=== PATIENT | male | born 1955 | race Caucasian/White ===

== ENCOUNTER 2019-04-07 10:46 | Inpatient (IN) | payer OTHER ==
[2019-04-07 13:15] LABS: BASO % 0.3 % (0-2.0); EOS % 0.4 % (0-4.5); HEMATOCRIT 54.9 % (35.4-49); HEMOGLOBIN 17.9 GM/dL (11.7-16.9); LYMPH % 10.1 % (8-40); MCH 29.3 pg (25.7-33.7); MCHC 32.5 g/dl (32.0-35.9); MEAN CELL VOLUME 90.1 fl (80-96); MEAN PLT VOLUME 7.7 fl (7.5-11.1); MONO % 8.4 % (3.8-10.2); NEUT % 80.8 % (42.8-82.8); PLATELET COUNT 258 K/MM3 (134-434); RDW 14.7 % (11.9-15.9)
[2019-04-07 13:24] LABS: INR 1.18 (0.83-1.09)
[2019-04-07 14:03] LABS: ALBUMIN 3.6 g/dl (3.4-5.0); ALK PHOS 74 U/L (45-117); ANION GAP 6 MMOL/L (8-16); BILIRUBIN,TOTAL 0.6 mg/dL (0.2-1); BLOOD UREA NITROGEN 23.6 mg/dL (7-18); CALCIUM 9.2 mg/dL (8.5-10.1); CHLORIDE 96 mmol/L (98-107); CO2 33 mmol/L (21-32); CREATININE 1.2 mg/dL (0.55-1.3); GLUCOSE,RANDOM 75 mg/dL (74-106); LIPASE 101 U/L (73-393); POTASSIUM 4.7 mmol/L (3.5-5.1); SGOT/AST 27 U/L (15-37); SGPT/ALT 38 U/L (13-61); SODIUM 136 mmol/L (136-145); TOT PROT 6.8 g/dl (6.4-8.2)
--- NOTE | 2019-04-07 15:13 | PDOC ---
Documentation entered by Imelda Posey SCRIBE, acting as scribe for Cornelio Tubbs MD. Cornelio Tubbs MD: This documentation has been prepared by the Taty peterson Adrianna, SCRIBE, under my direction and personally reviewed by me in its entirety. I confirm that the documentation accurately reflects all work, treatment, procedures, and medical decision making performed by me. History of Present Illness - General Chief Complaint: Pain Stated Complaint: ABD PAIN Time Seen by Provider: 04/07/19 11:43 - History of Present Illness Initial Comments: The patient is a 63 year old male, with a significant PMH of Afib (on Xarelto), COPD, polycythemia vera (last phlebotomy was 2 years ago), restless leg syndrome , and anxiety, who presents to the ED for evaluation of abdominal pain for 2 weeks. Patient complains of diffuse upper abdominal pain, which has been chronic over the past two years but has become progressively worse over the past two weeks. He notes the pain is onset typically ~20-30 minutes after eating , and lasts for ~2 hours. His pain is exacerbated with eating solid foods, specifically meats. Patient notes he has been unable to sleep secondary to the pain. He additionally states that his food goes down slower than normal, and his bowel movements are smaller than typical. He denies any current abdominal pain while in the ED, but notes he was experiencing it a few hours ago after he ate breakfast. Off note, patient additionally complains of bilateral LE edema for the past 2 days. Denies diarrhea, blood in stool, melena. Allergies: Surgical History: Social History: Current everyday smoker (quit for a few years, and returned to smoking 1ppd 6 months ago). PCP: Dr. Ball Cards: Dr. Burden GI: Dr. Henry Pulm: NOS ([place]ales) Heme: NOS (Morales) Past History - Psycho Social/Smoking Cessation Hx Smoking History: Current every day smoker Have you smoked in the past 12 months: Yes Number of Cigarettes Smoked Daily: 20 Information on smoking cessation initiated: Yes Hx Alcohol Use: No Drug/Substance Use Hx: No Review of Systems - Review of Systems Comments:: CONSTITUTIONAL: No fever, no chills, no fatigue EYES: No visual changes ENT: No ear pain, no sore throat CARDIOVASCULAR: No chest pain, no palpitations RESPIRATORY: No cough, no SOB GI: +Diffuse upper abdominal pain. +Food goes down slower. +Smaller stool production than normal. No nausea, no vomiting, no constipation, no diarrhea GENITOURINARY: No dysuria, no frequency, no hematuria MUSKULOSKELETAL: +Bilateral LE edema. No back pain, no joint pain, no myalgias SKIN: No rash NEURO: No headache *Physical Exam - Vital Signs Last Vital Signs Temp Pulse Resp BP Pulse Ox 98.2 F 100 H 18 118/81 90 L 04/07/19 11:09 04/07/19 11:09 04/07/19 11:09 04/07/19 11:09 04/07/19 11:09 - Physical Exam 04/07/19 15:08 EXAMINATION CONSTITUTIONAL: awake; tachypneic, dyspneic; well-nourished; in no apparent distress HEAD: Normocephalic; atraumatic EYES: PERRL; EOM intact ENMT: External appears normal; normal oropharynx NECK: Supple; non-tender; no cervical lymphadenopathy CARD: Normal S1, S2; no murmurs, rubs, or gallops RESP: + diffuse exp wheezing b/l with intermitent ronchi ABD: Soft, non-distended; + mild ruq tender; + ventral hernia; no palpable organomegaly, EXT: Normal ROM in all four extremities; non-tender to palpation; + 3 piting edema b/l; distal pulses intact SKIN: Warm, dry, no rash NEURO: No focal neurological deficiencies. Heart Score/ECG Review - ECG Impressions Comment:: ECG performed on 07 Apr 2019 at 12:05 demonstrates rate of 98 bpm, sinus rhythm with occasional premature ventricular complexes, possible left atrial enlargement, right superior axis deviation, pulmonary disease pattern, septal infarct (age undetermined). ED Treatment Course - LABORATORY CBC & Chemistry Diagram: 04/07/19 12:20 04/07/19 12:20 - ADDITIONAL ORDERS Additional order review: Laboratory Results 04/07/19 04/07/19 12:20 12:20 PT with INR 14.00 H INR 1.18 H Sodium 136 Potassium 4.7 Chloride 96 L Carbon Dioxide 33 H Anion Gap 6 L BUN 23.6 H Creatinine 1.2 Est GFR (CKD-EPI)AfAm 74.66 Est GFR (CKD-EPI)NonAf 64.42 Random Glucose 75 Calcium 9.2 Total Bilirubin 0.6 AST 27 ALT 38 Alkaline Phosphatase 74 Total Protein 6.8 Albumin 3.6 Lipase 101 04/07/19 12:20 RBC 6.10 H MCV 90.1 MCHC 32.5 RDW 14.7 MPV 7.7 Neutrophils % 80.8 Lymphocytes % 10.1 Monocytes % 8.4 Eosinophils % 0.4 Basophils % 0.3 - RADIOLOGY Radiology Studies Ordered: Category Date Time Status ABDOMEN US -LIMITED [US] Stat Ultrasound 04/07/19 12:21 Completed Radiograph Interpretation: EXAM#: TYPE/EXAM: RESULT: [id number] US/ABDOMEN US -LIMITED Limited abdominal ultrasound. IMPRESSION: Fatty infiltration of the liver. 1.3 cm right hepatic lobe cyst. Pancreatic duct in the head region measures about 2 mm which is within upper normal limits. Follow- up with ultrasound in 1-2 months is suggested. Alternatively follow-up with MRI with MRCP may be obtained. Reported By: Sy Villalobos MD 04/07/19 14:06 Medical Decision Making - Medical Decision Making 04/07/19 15:12 Patient is 63-year-old male with multiple comorbidities, severe COPD who presents with symptoms of postprandial abdominal pain that started approximately 20 to 30 minutes after a meal and are noted to be worse after consumption of solids. Patient symptoms of persisted for an extended period of time but have increased in severity over the past 2 weeks. In the ER, patient is awake and alert, nontoxic-appearing, hypoxemic on room air with oxygen saturation ranging between 87 to 90% (patient's baseline); diffuse expiratory wheezing is noted on lung evaluation. A ventral hernia is noted on the abdominal exam without evidence of incarceration. There is no organomegaly and there is no focal abdominal tenderness with the exception of minimal right upper quadrant tenderness to deep palpation only. CBC/CMP within normal limit. Right upper quadrant ultrasound reveals no evidence of cholelithiasis or gallbladder disease. Will discuss with GI. Will reassess. Discharge - Discharge Information Problems reviewed: Yes Clinical Impression/Diagnosis: Hypoxia, Polycythemia rubra vera Abdominal pain Qualifiers: Abdominal location: upper abdomen, unspecified Qualified Code(s): R10.10 - Upper abdominal pain, unspecified COPD (chronic obstructive pulmonary disease) Qualifiers: COPD type: unspecified COPD Qualified Code(s): J44.9 - Chronic obstructive pulmonary disease, unspecified Condition: Fair - Admission Yes - Follow up/Referral Referrals: Dennis Ball MD [Primary Care Provider] - - Patient Discharge Instructions - Post Discharge Activity
[2019-04-07] MEDS ORDERED: ALBUTEROL SO4 2.5/IPRATROPIUM 0.5 INH SOL 3 ML VIAL.NEB. NEB ONE ×2 (15:41→23:49)
[2019-04-07] MEDS ORDERED: ALBUTEROL SO4 2.5/IPRATROPIUM 0.5 INH SOL 3 ML VIAL.NEB. NEB SCH (17:45)
--- NOTE | 2019-04-07 17:45 | CON.GI ---
Consult Consult Specialty:: Gastroenterology Referred by:: Dr. Tubbs Reason for Consultation:: Abdominal pain - History of Present Illness Chief Complaint: Abdominal pain History of Present Illness: 63yo male h/o COPD, RAINER on CPAP, polycythemia vera s/p phlebotomy, A fib on xarelto presents for evaluation of intermittent abdominal pain x 2-3 weeks. Pt known to Dr. Henry, reporting intermittent upper abdominal pain over the past 2-3 weeks. Pt describes dull achy sensation occurring usually within 20-30 minutes after eating, resolves within 30 minutes, also with sensation of fullness and early satiety. Has taken advil at times to alleviate the pain. Denies dysphagia, nausea or vomiting. Reports hard pebble like stools daily, denies melena or hematochezia. PO intake has been limited due to symptoms, reports approximately 10-20lbs weight loss over the past 1-2 months. Had pain after breakfast this am, however denies pain currently. No prior EGD. Had colonoscopy by Dr. Henry in 2015, states was due in 2020 ( report not available). Last dose of xarelto was yesterday (04/06). - History Source History Provided By: Patient - Alcohol/Substance Use Hx Alcohol Use: No - Smoking History Smoking history: Current every day smoker Have you smoked in the past 12 months: Yes Aproximately how many cigarettes per day: 20 Home Medications - Home Medications Home Medications: Ambulatory Orders Albuterol 2.5/Ipratropium 0.5 [Duoneb -] 1 neb NEB Q4H 04/07/19 Albuterol Sulfate [Proair Hfa] 8.5 gm IH DAILY 04/07/19 Diltiazem HCl [Diltiazem 24Hr Cd] 180 mg PO DAILY 04/07/19 Gabapentin 600 mg PO BID 04/07/19 Rivaroxaban [Xarelto -] 20 mg PO DAILY 04/07/19 Tiotropium Br/Olodaterol HCl [Stiolto Respimat Inhal [place]] 2.5 mcg IH DAILY Review of Systems - Review of Systems Constitutional: reports: Loss of Appetite, Unintentional Wgt. Loss Cardiovascular: reports: No Symptoms Respiratory: reports: No Symptoms Gastrointestinal: reports: Abdominal Pain Musculoskeletal: reports: No Symptoms Physical Exam-GI Vital Signs: Vital Signs Temperature 98.2 F 04/07/19 11:09 Pulse Rate 100 H 04/07/19 11:09 Respiratory Rate 18 04/07/19 11:09 Blood Pressure 118/81 04/07/19 11:09 O2 Sat by Pulse Oximetry (%) 90 L 04/07/19 16:41 Constitutional: Yes: Well Nourished, No Distress, Calm Cardiovascular: Yes: WNL, Regular Rate and Rhythm Respiratory: Yes: WNL, Regular, CTA Bilaterally ...Palpate: Yes: Other (Abd soft, nontender, nondistended, +ventral hernia, reducible) Labs: CBC, BMP 04/07/19 12:20 04/07/19 12:20 INR, PTT INR 1.18 (0.83-1.09) H 04/07/19 12:20 Imaging - Results Ultrasound: Report Reviewed Assessment/Plan 63yo male h/o COPD, RAINER on CPAP, polycythemia vera, A fib on xarelto presents for evaluation of intermittent abdominal pain x 4-6 weeks, mostly postprandial with some associated early satiety and weight loss. No prior EGD. No gallbladder pathology on US. Possible etiologies including gastritis, PUD however need to exclude mesenteric ischemia. -Recommend CTA to further evaluate -Check lactate -PPI daily -Cardiology and pulmonary consultations -Surgery consult -Hold xarelto if no contraindication (last dose on 04/06), if a/c deemed indicated recommend heparin gtt that can be held 4-6 hours prior to procedure -Plan for EGD pending above and once optimized from a cardiorespiratory standpoint, possibly Friday pending course Discussed with medicine team
--- NOTE | 2019-04-07 17:45 | HP ---
CHIEF COMPLAINT: Abdominal Pain x 2 weeks PCP: Dr. Ball HISTORY OF PRESENT ILLNESS: Pt. is a 63 y.o. F w/ PMHx. of Afib (on Xarelto), COPD (not on home O2), Polycythemia(Ddx. 3 years ago, last phlebotomy 2 years ago), RLS, Anxiety and Arthritis presents for abdominal pain that has been worsening over the last 2 weeks. Pt. states the pain started 2 years ago but has been getting worse recently. Pt. states the pain happens around 20-30 min after eating and has been so severe that he cannot sleep at night as well as causing him to decrease his PO intake. Pt.s last meal was breakfast. Pt. endorses about 20 lbs of weight loss over the last month. Pt. states he has been having low-grade fever, hot an cold spells but denies over chills/rigors. Pt. is also complaining of b/l lower extremity swelling, constipation, weight loss, lightheadedness and generalized weakness. Pt. states he last saw Dr. Ball 2 weeks ago for shortness of breath and wheezing. CXR was negative but was given an 8 day course of Prednisone, no antibiotics. Pt. denies any sick contacts or recent travel. Pt. 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 States he has a 6 month supply in his fridge and that his last dose was yesterday. Pt. sees Dr. Ligth @ [facility] for Polycythemia. Pt. last visited in February. Pt. 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 Pt. last had a stress test 1 year ago. 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 Pt. sees Dr. Gregorio? @ [place] as his Pulmonologists ER course was notable for: (1) CBAC, CMP, Abd US (2) (3) Recent Travel: No PAST MEDICAL HISTORY: As above PAST SURGICAL HISTORY: Varicose vein removal, Lipoma removal from head Social History: SmokinPPD x 30 years, recently restarted ~6months ago Alcohol: Occasional Beer Drugs: Rec. marijuana use, CBD Oil, Hemp Family Hx.: Mom of Lung CA @ 71, Dad of CHF @ 80, Maternal Uncle: Stroke/ID at 56, Maternal Uncle: of Leg cancer HOME MEDICATIONS: Home Medications Medication Instructions Recorded Albuterol 2.5/Ipratropium 0.5 1 neb NEB Q4H 04/07/19 [Duoneb -] Albuterol Sulfate [Proair Hfa] 8.5 gm IH DAILY 04/07/19 Diltiazem HCl [Diltiazem 24Hr Cd] 180 mg PO DAILY 04/07/19 Gabapentin 600 mg PO BID 04/07/19 Rivaroxaban [Xarelto -] 20 mg PO DAILY 04/07/19 Tiotropium Br/Olodaterol HCl 2.5 mcg IH DAILY 04/07/19 [Stiolto Respimat Inhal [place]] REVIEW OF SYSTEMS As above PHYSICAL EXAMINATION Vital Signs - 24 hr 04/07/19 04/07/19 11:09 16:41 Temperature 98.2 F Pulse Rate 100 H Respiratory 18 Rate Blood Pressure 118/81 O2 Sat by Pulse 90 L 90 L Oximetry (%) GENERAL: Awake, alert, and fully oriented, in mild respiratory distress, conversational dyspnea HEAD: Normal with no signs of trauma. EYES: Sclera anicteric, conjunctiva clear. EARS, NOSE, THROAT: Ears normal, nares patent. Dry mucous membranes. NECK: Normal range of motion, supple without JVD LUNGS: Decreased BS, diffuse wheezing, poor air flow, no accessory muscle use HEART: Irregular rate and rhythm, normal S1 and S2 without murmur ABDOMEN: Soft, epigastric discomfort, not distended, hernia, normoactive bowel sounds, no guarding, no rebound, no masses. No external hemorrhoids, good sphincter tone, no internal hemorrhoids, stool in the rectal vault, no damaris blood on glove MUSCULOSKELETAL: No CVA tenderness. UPPER EXTREMITIES: 2+ radial pulses, warm, well-perfused. No cyanosis. Clubbing. No peripheral edema. LOWER EXTREMITIES: 2+ dorsal pedal pulses, warm, well-perfused. No calf tenderness. No peripheral edema. NEUROLOGICAL: Normal speech. Normal gait. PSYCHIATRIC: Cooperative. Good eye contact. Anxious SKIN: Warm, dry, normal turgor, normal capillary refill. Laboratory Results - last 24 hr 01/29/20 01/29/20 01/29/20 12:20 12:20 12:20 WBC 11.0 H RBC 6.10 H Hgb 17.9 H Hct 54.9 H MCV 90.1 MCH 29.3 MCHC 32.5 RDW 14.7 Plt Count 258 MPV 7.7 Absolute Neuts (auto) 8.9 H Neutrophils % 80.8 Lymphocytes % 10.1 Monocytes % 8.4 Eosinophils % 0.4 Basophils % 0.3 Nucleated RBC % 0 PT with INR 14.00 H INR 1.18 H Sodium 136 Potassium 4.7 Chloride 96 L Carbon Dioxide 33 H Anion Gap 6 L BUN 23.6 H Creatinine 1.2 Est GFR (CKD-EPI)AfAm 74.66 Est GFR (CKD-EPI)NonAf 64.42 Random Glucose 75 Calcium 9.2 Total Bilirubin 0.6 AST 27 ALT 38 Alkaline Phosphatase 74 Total Protein 6.8 Albumin 3.6 Lipase 101 ASSESSMENT/PLAN: Pt. is a 63 y.o. F w/ PMHx. of Afib (on Xarelto), COPD (not on home O2), Polycythemia (Ddx. 3 years ago, last phlebotomy 2 years ago), RLS, Anxiety and Arthritis presents for abdominal pain that has been worsening over the last 2 weeks. #Abdominal Pain likely secondary to Polycythemia and is ischemic in nature (Given hx. Polycythemia and smoking), will f/u AM lipid panel f/u CTA to evaluate for ischemia in the celiac trunk and distally as Pt. complains of pain 20-30 min after meal, with epigastric tenderness. NPO Abd. US negative for gall stones, shows fatty liver, 1.3 cm R. hepatic cyst, pancreatic duct 2mm. f/u Heme/on Consult for initiating hydroxy urea as Pt. is not currently taking. 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 is on ASA, called Pharmacy no documentation, may be taking OTC. GI Consult appreciated for EGD, Pt. has never had EGD but has had colonoscopy in past with Dr. Henry. Protonix 40mg BID f/u FOBT #COPD c/w Duonebs and PRN Albuterol (Pt. states he last took Stiolto 2 weeks ago) Solumedrol 40mg Q8H Pulomonology consult appreciated for clearance for EGD. Will likely need Anesthesiology clearance as well. Pt. will liekly need to be screened for RAINER as outpatient. Pt. does not have home O2 but was hypoxic to 86% after conversation. Will need Pre and Post for home O2. F/u Physical Therapy. Nicotine cessation discussed. Pt. states he quit in the past but has relapsed recently. Pt. denies smoking over the last 3 days. Can give Nicotine Patch if Pt. is becoming increasingly agitated/anxious c/w Telemetry monitoring for pulse oximetry supplemental O2 as needed for SpO2 above 90% #Afib EKG: shows p waves w/ PVCs?, Sinus rhythm, QTc: 45, normal intervals Cardiology consulted appreciated for clearance for EGD c/w Diltiazem 180mg Hold Xarelto, c/w Heparin gtt #FEN D5-1/2 NS @ 100 monitor electrolytes and replete as needed NPO #DVT Ppx. Heparin Gtt Visit type - Emergency Visit Emergency Visit: Yes ED Registration Date: 04/07/19 Care time: The patient presented to the Emergency Department on the above date and was hospitalized for further evaluation of their emergent condition. - New Patient This patient is new to me today: Yes Date on this admission: 04/07/19 - Critical Care Critical Care patient: No ATTENDING PHYSICIAN STATEMENT I saw and evaluated the patient. I reviewed the resident's note and discussed the case with the resident. I agree with the resident's findings and plan as documented. SUBJECTIVE: OBJECTIVE: ASSESSMENT AND PLAN:
--- NOTE | 2019-04-07 17:48 | PN ---
Teaching Attending Note Name of Resident: Yaniv Zee ATTENDING PHYSICIAN STATEMENT I saw and evaluated the patient. I reviewed the resident's note and discussed the case with the resident. I agree with the resident's findings and plan as documented. SUBJECTIVE: HISTORY OF PRESENT ILLNESS: Pt. is a 63 y.o. F w/ PMHx. of Afib (on Xarelto), COPD (not on home O2), Polycythemia(Ddx. 3 years ago, last phlebotomy 2 years ago), RLS, Anxiety and Arthritis presents for abdominal pain that has been worsening over the last 2 weeks. Pt. states the pain started 2 years ago but has been getting worse recently over the past 2 weeks,. Pt. states the pain happens around 20-30 min after eating and has been so severe that he cannot sleep at night as well as causing him to decrease his PO intake. no wt loss, Pt. states he has been having low-grade fever, hot an cold spells but denies over chills/rigors. Pt. is also complaining of b/l lower extremity swelling, constipation, weight loss, lightheadedness and generalized weakness. no blood in stools, Pt. states he last saw Dr. Ball 2 weeks ago for shortness of breath and wheezing. CXR was negative but was given and was started on po prednisone, OBJECTIVE: appears comfortable, nad alert awake and oriented i time place and person, vss neck supple, no jvd cvs s1.s2.0 chest ctab abd benign soft nt no bs+ ext no c/c/1+edema neuro non focal assessment and plan, Pt. is a 63 y.o. F w/ PMHx. of Afib (on Xarelto), COPD (not on home O2), Polycythemia (Ddx. 3 years ago, last phlebotomy 2 years ago), RLS, Anxiety and Arthritis presents for abdominal pain that has been worsening over the last 2 weeks. #Abdominal Pain likely secondary to Polycythemia and is ischemic in nature (Given hx. Polycythemia and smoking), will f/u AM lipid panel f/u CTA NPO Abd. US negative for gall stones, shows fatty liver, 1.3 cm R. hepatic cyst, pancreatic duct 2mm. f/u Heme/on Consult for polycythemia, as per pt he is on asa but not as per pharmacy record, GI Consult appreciated for EGD, Pt. has never had EGD but has had colonoscopy in past with Dr. Henry. Protonix 40mg BID #COPD continue nebulizers, and steroids, pulmonology consult, for the gael for the procedure, and will continue oxygen for the hypoxemia, #Afib Cardiology consulted, c/w Diltiazem 180mg Hold Xarelto, c/w Heparin gtt
[2019-04-07] MEDS: DEXTROSE 5%-0.45% SALINE 1,000 ML IV SCH (18:13)
[2019-04-07] MEDS ORDERED: HEPARIN NA (PORCINE) 5,000 UNITS/ML 1ML VIAL IVPUSH PRN ×2 (18:17)
[2019-04-07] MEDS ORDERED: HEPARIN INFUSION - 25,000 UNITS/500 ML INFUS.BAG IVPB ONE (20:46)
[2019-04-07] MEDS ORDERED: GABAPENTIN 100 MG CAPSULE ONE (21:47)
[2019-04-07] MEDS ORDERED: methylPREDNISolone NA SUCC 40 MG/1 ML VIAL ONE (21:48)
[2019-04-07] MEDS ORDERED: PANTOPRAZOLE SODIUM 40 MG VIAL ONE (21:48)
[2019-04-07] MEDS: HEPARIN INFUSION - 25,000 UNITS/500 ML INFUS.BAG IVPB SCH (22:10)
[2019-04-07] MEDS: PANTOPRAZOLE SODIUM 40 MG VIAL IVPUSH SCH (22:13)
[2019-04-07] MEDS: methylPREDNISolone NA SUCC 40 MG/1 ML VIAL IVPUSH SCH (22:13)
[2019-04-07] MEDS: GABAPENTIN 300 MG CAPSULE PO SCH (22:13)
[2019-04-07] MEDS ORDERED: ALBUTEROL SO4 0.083% IH SOL 2.5 MG/3 ML VIAL.NEB. NEB PRN (22:16)
[2019-04-08] MEDS: ALBUTEROL SO4 2.5/IPRATROPIUM 0.5 INH SOL 3 ML VIAL.NEB. NEB SCH ×6 (00:08→20:30)
[2019-04-08] MEDS ORDERED: MELATONIN 5 MG TABLETS PO ONE ×2 (01:42→23:20)
[2019-04-08] MEDS ORDERED: methylPREDNISolone NA SUCC 40 MG/1 ML VIAL ONE (03:26)
[2019-04-08] MEDS ORDERED: ALBUTEROL SO4 2.5/IPRATROPIUM 0.5 INH SOL 3 ML VIAL.NEB. NEB ONE (03:26)
[2019-04-08] MEDS: methylPREDNISolone NA SUCC 40 MG/1 ML VIAL IVPUSH SCH ×3 (03:36→18:30)
[2019-04-08] MEDS ORDERED: dilTIAZem HCL 60 MG TABLET (FP) ONE (04:24)
[2019-04-08] MEDS ORDERED: ALBUTEROL SO4 0.083% IH SOL 2.5 MG/3 ML VIAL.NEB. NEB PRN (04:32)
[2019-04-08] MEDS ORDERED: METOPROLOL TARTRATE 5 MG/5 ML VIAL IVPUSH ONE (04:57)
[2019-04-08] MEDS ORDERED: METOPROLOL TARTRATE 5 MG/5 ML VIAL ONE (04:58)
--- NOTE | 2019-04-08 05:32 | PN ---
Progress Note (short form) - Note Progress Note: Nursing paged resident to evaluate patient as patient's heart rate was noted to be in 130s-150s. Resident to the bedside after review of day's notes. Patient stated that he felt like his heart was racing and this has happened in the past when he did not receive his nighttime medications. Noted that patient had not received his night time Cardizem which he take total 300mg. Denied cp, sob, diaphoresis, back pain, dizziness, lightheadedness. Was given Cardizem 120mg. EKG taken and showed afib with RVR at rate 146, right axis deviation, no ST segment changes or T wave inversions, QTc 461. PE: General: alert and oriented, no acute distress, upset about not getting nighttimes medications Cardiac: Tachycardic and irregular rhythm, no murmurs auscultated Resp: expiratory wheezes. Vitals: Rate 140 BP: 126/66 Sat 88% on 2L Lopressor 5mg ordered and patient refused. Asked why refusing, stating that he had a bad reaction to the medication in the past and does not want to take it now. Explained to the patient that having elevated heart rate with afib in RVR is dangerous and needs to be slowed down as it can cause including but not limited to further cardiac complications, ACS, coma, . Patient acknowledged this and continued to refuse stating that he wanted his full nighttime dose of cardizem. Cardizem 180mg ordered for total dose of 300mg and morning cardizem was held. Patient remained asymptomatic and will continue to observe. Nurse called and notified that patient at rate 105 and in sinus tachycardia. Will sign out to day team.
[2019-04-08 08:04] LABS: INR 0.99 (0.83-1.09); PROTHROMBIN TIME (PATIENT) 11.7 SEC (9.7-13.0)
[2019-04-08 08:14] LABS: BASO % 0.1 % (0-2.0); EOS % 0.1 % (0-4.5); HEMATOCRIT 55.6 % (35.4-49); HEMOGLOBIN 18.3 GM/dL (11.7-16.9); LYMPH % 4.8 % (8-40); MCH 29.5 pg (25.7-33.7); MEAN CELL VOLUME 89.6 fl (80-96); MEAN PLT VOLUME 7.8 fl (7.5-11.1); MONO % 0.9 % (3.8-10.2); NEUT % 94.1 % (42.8-82.8); PLATELET COUNT 223 K/MM3 (134-434); RDW 14.9 % (11.9-15.9); WHITE BLOOD COUNT 6.9 K/mm3 (4.0-10.0)
[2019-04-08 08:29] LABS: ALBUMIN 3.5 g/dl (3.4-5.0); ALK PHOS 73 U/L (45-117); ANION GAP 7 MMOL/L (8-16); BILIRUBIN,TOTAL 0.7 mg/dL (0.2-1); BLOOD UREA NITROGEN 22.9 mg/dL (7-18); CALCIUM 9.4 mg/dL (8.5-10.1); CHLORIDE 97 mmol/L (98-107); CO2 35 mmol/L (21-32); CREATININE 1.3 mg/dL (0.55-1.3); GLUCOSE,RANDOM 167 mg/dL (74-106); PHOSPHOROUS 4.5 mg/dL (2.5-4.9); POTASSIUM 4.8 mmol/L (3.5-5.1); SGOT/AST 19 U/L (15-37); SGPT/ALT 35 U/L (13-61); SODIUM 138 mmol/L (136-145); TOT PROT 6.6 g/dl (6.4-8.2)
[2019-04-08 08:34] LABS: CHOLESTEROL 196 mg/dL (50-200); HDL CHOLESTEROL 76 mg/dL (40-60); LDL CHOLESTEROL (ONLY SJRH) 97 mg/dL (5-100); TRIGLYCERIDES 56 mg/dL (0-150)
[2019-04-08] MEDS ORDERED: TIOTROPIUM/OLODATEROL HCL (STIOLTO) 4 GM INHALER IH SCH (10:00)
[2019-04-08] MEDS ORDERED: ASPIRIN 81 MG CHEWABLE TABLETS PO SCH (10:00)
[2019-04-08] MEDS ORDERED: ALBUTEROL SO4 8 GM HFA INHALER IH SCH (10:00)
[2019-04-08] MEDS: GABAPENTIN 300 MG CAPSULE PO SCH ×3 (10:21→21:18)
[2019-04-08] MEDS: PANTOPRAZOLE SODIUM 40 MG VIAL IVPUSH SCH ×2 (10:21→21:17)
[2019-04-08] MEDS ORDERED: SODIUM CHLORIDE NASAL SPRAY 44 ML BOTTLE NS PRN (11:11)
[2019-04-08 12:38] LABS: ANISOCYTOSIS 1+; MACROCYTOSIS 0; PLATELET ESTIMATE NORMAL; TEAR DROP CELLS 2+; TOXIC GRANULATION 2+
--- NOTE | 2019-04-08 12:40 | EKG ---
Test Reason : Blood Pressure : / mmHG Vent. Rate : 146 BPM Atrial Rate : 147 BPM P-R Int : 000 ms QRS Dur : 096 ms QT Int : 296 ms P-R-T Axes : 000 150 042 degrees QTc Int : 461 ms ATRIAL FIBRILLATION WITH RAPID VENTRICULAR RESPONSE WITH PREMATURE VENTRICULAR OR ABERRANTLY CONDUCTED COMPLEXES RIGHT AXIS DEVIATION ABNORMAL ECG WHEN COMPARED WITH ECG OF 07-APR-2019 17:44, QUESTIONABLE CHANGE IN QRS AXIS CRITERIA FOR SEPTAL INFARCT ARE NO LONGER PRESENT Confirmed by XAVI PAULA MD ([id number]) on 04/08/2019 12:40:35 PM Referred By: Confirmed By:XAVI PAULA MD
--- NOTE | 2019-04-08 12:40 | EKG ---
Test Reason : Blood Pressure : / mmHG Vent. Rate : 117 BPM Atrial Rate : 113 BPM P-R Int : 000 ms QRS Dur : 080 ms QT Int : 306 ms P-R-T Axes : 000 211 042 degrees QTc Int : 426 ms POOR DATA QUALITY, INTERPRETATION MAY BE ADVERSELY AFFECTED ATRIAL FIBRILLATION WITH RAPID VENTRICULAR RESPONSE WITH PREMATURE VENTRICULAR OR ABERRANTLY CONDUCTED COMPLEXES RIGHT SUPERIOR AXIS DEVIATION RIGHT VENTRICULAR HYPERTROPHY SEPTAL INFARCT (CITED ON OR BEFORE 07-APR-2019) ABNORMAL ECG WHEN COMPARED WITH ECG OF 07-APR-2019 12:05, ATRIAL FIBRILLATION HAS REPLACED SINUS RHYTHM QUESTIONABLE CHANGE IN INITIAL FORCES OF SEPTAL LEADS Confirmed by XAVI PAULA MD ([id number]) on 04/08/2019 12:40:28 PM Referred By: Confirmed By:XAVI PAULA MD
--- NOTE | 2019-04-08 13:28 | CON.CARD ---
Consult Consult Specialty:: cardiology Reason for Consultation:: SOB; multiple CAD risks - History of Present Illness History of Present Illness: The patient is a 63 year old white man, with a significant PMH of Afib (on diltiazem and Xarelto), COPD (denies asthma; tolerated beta blockers for AF in the past; per , pt refuses to use prescribed home O2),, polycythemia vera ( last phlebotomy was 2 years ago), RAINER/RLS (on CPAP), and anxiety/depression/ panic, who presents to the ED for evaluation of abdominal pain for 2 weeks. Patient complains of diffuse upper abdominal pain, which has been chronic over the past two years but has become progressively worse over the past two weeks. He notes the pain is onset typically ~20-30 minutes after eating, and lasts for ~2 hours. His pain is exacerbated with eating solid foods, specifically meats. Patient notes he has been unable to sleep secondary to the pain. He additionally states that his food goes down slower than normal, and his bowel movements are smaller than typical. He denies any current abdominal pain while in the ED, but notes he was experiencing it a few hours ago after he ate breakfast. Planned now for EGD. Pt does report chronic shortness of breath, chest tightness and wheezing. Reports an unintentional weight loss of 20lbs over the past month. He uses Stiolto and albuterol at home. He started smoking at age 17, smoked as much as 2 PPD and still currently smokes. He was placed on prednisone about 2 weeks ago with improvement in dyspnea. Never been on steroids prior to that. Denies hx seizures. patient additionally complains of bilateral LE edema for the past 2 days. Pt says he had a coronary angiogram about 7 yrs ago at [facility]: nonobstructive disease, but "something in the lower part was not right". He has had severeal stress tests since, the latest about a year ago. Attends pumonary clinic at [place]. On rivaroxaban 20 mg daily; had an episode of bleeding years ago, but not since. PMD: Dr. Ball Cardio: Dr. Cast ([place]) Pulm: - History Source History Provided By: Patient, Family Member (), Medical Record Limitations to Obtaining History: Other (pt is angry, upset; gives information reluctantly) - Alcohol/Substance Use Hx Alcohol Use: No - Smoking History Smoking history: Current every day smoker Have you smoked in the past 12 months: Yes Aproximately how many cigarettes per day: 20 Home Medications - Allergies Allergies/Adverse Reactions: Allergies Allergy/AdvReac Type Severity Reaction Status Date / Time No Known Allergies Allergy Verified 04/07/19 18:55 - Home Medications Home Medications: Ambulatory Orders Albuterol 2.5/Ipratropium 0.5 [Duoneb -] 1 neb NEB Q4H 04/07/19 Albuterol Sulfate [Proair Hfa] 8.5 gm IH DAILY 04/07/19 Diltiazem HCl [Diltiazem 24Hr Cd] 180 mg PO HS 04/07/19 Gabapentin 600 mg PO BID 04/07/19 Rivaroxaban [Xarelto -] 20 mg PO DAILY 04/07/19 Tiotropium Br/Olodaterol HCl [Stiolto Respimat Inhal [place]] 2.5 mcg IH DAILY Diltiazem HCl [Diltiazem ER] 120 mg PO HS 04/08/19 Family Medical History Family Hx Cancer: Father ([place]) Review of Systems - Review of Systems Constitutional: reports: Unintentional Wgt. Loss Eyes: reports: No Symptoms HENT: reports: No Symptoms Neck: reports: No Symptoms Cardiovascular: reports: Chest Pain, Shortness of Breath Respiratory: reports: Exercise Intolerance, SOB, Wheezing. denies: Hemoptysis Gastrointestinal: reports: Abdominal Pain, Dysphagia, Nausea Genitourinary: reports: No Symptoms Breasts: reports: No Symptoms Reported Musculoskeletal: reports: Muscle Weakness Integumentary: reports: No Symptoms Neurological: reports: Weakness Endocrine: reports: No Symptoms Hematology/Lymphatic: denies: Excessive Bleeding Psychiatric: reports: Altered Sleep Pattern, Anxiety, Depression, Panic - Risk Factors Known Risk Factors: Yes: Age, Family History, Gender, Hypercholesterolemia, Hypertension, Physical Inactivity, Smoking, Other (COPD; CHF) Vital Signs: Vital Signs Temperature 98.5 F 04/08/19 09:00 Pulse Rate 100 H 04/08/19 09:00 Respiratory Rate 20 04/08/19 09:00 Blood Pressure 124/60 04/08/19 09:00 O2 Sat by Pulse Oximetry (%) 89 L 04/08/19 07:22 Constitutional: Yes: Anxious, Moderate Distress Eyes: Yes: WNL HENT: Yes: WNL Neck: Yes: WNL Respiratory: Yes: Diminished, On Nasal O2, SOB, Tachypnea, Wheezes (diffuse) Gastrointestinal: Yes: Soft, Tenderness (mild) Renal/: No: Anuria Cardiovascular: Yes: Tachycardia, Pulse Irregular JVD: Yes Carotid Bruit: No PMI: Non-Displaced Heart Sounds: Yes: S1 (varies in intensity), S2. No: S4 Murmur: Yes: Systolic Murmur, Grade 1 Musculoskeletal: Yes: Muscle Weakness Extremities: Yes: Cool Edema: No Peripheral Pulses WNL: Yes Integumentary: Yes: WNL Neurological: Yes: Alert, Oriented, Weakness Psychiatric: Yes: Alert, Oriented, Agitated, Other (anxsious/angry) - Other Data Labs, Other Data: CBC, BMP 04/08/19 06:28 04/08/19 06:28 INR, PTT INR 0.99 (0.83-1.09) 04/08/19 06:28 Troponin, BNP 04/07/19 12:20 Troponin I < 0.02 Troponin, BNP 04/07/19 12:20 Troponin I < 0.02 Abnormal Lab Results 04/08/19 04/08/19 04/08/19 06:28 06:28 06:28 RBC 6.20 H Hgb 18.3 H Hct 55.6 H Neutrophils % 94.1 H Neutrophils % (Manual) 92.0 H Lymphocytes % 4.8 L D Lymphocytes % (Manual) 2.0 L Monocytes % 0.9 L D Monocytes % (Manual) 0 L PTT (Actin FS) Chloride 97 L Carbon Dioxide 35 H Anion Gap 7 L BUN 22.9 H Random Glucose 167 H HDL Cholesterol 76 H 04/08/19 06:28 RBC Hgb Hct Neutrophils % Neutrophils % (Manual) Lymphocytes % Lymphocytes % (Manual) Monocytes % Monocytes % (Manual) PTT (Actin FS) 70.4 H Chloride Carbon Dioxide Anion Gap BUN Random Glucose HDL Cholesterol Imaging - Results Chest X-ray: Image Reviewed EKG: Image Reviewed (AF with RVR) Problem List - Problems (1) COPD exacerbation Assessment/Plan: Poor air entry; Diffuse wheezes; SOB f/u CXR r/o influenza Bronchodilators, O2, steoids, ?antibiotics per mold yard worker Code(s): J44.1 - CHRONIC OBSTRUCTIVE PULMONARY DISEASE W (ACUTE) EXACERBATION (2) Ventral hernia Code(s): K43.9 - VENTRAL HERNIA WITHOUT OBSTRUCTION OR GANGRENE (3) Anxiety and depression Assessment/Plan: Pt agrees to start Wellbutrin for anxiety and as aid to stop smoking. Code(s): F41.9 - ANXIETY DISORDER, UNSPECIFIED; F32.9 - MAJOR DEPRESSIVE DISORDER, SINGLE EPISODE, UNSPECIFIED (4) Smokes cigarettes Assessment/Plan: Pt was on nicotine patch, but kept removing it and smoking. Smokes a pack a day or more again. Agrees to try Wellbutrin (for anxiety/derpression adn cigarettes; denies hx seizures). Code(s): F17.210 - NICOTINE DEPENDENCE, CIGARETTES, UNCOMPLICATED (5) CHF (congestive heart failure) Assessment/Plan: F/u CXR, NT BNP. Code(s): I50.9 - HEART FAILURE, UNSPECIFIED (6) [place] cardiac risk >20% in next 10 years Assessment/Plan: 1st TNI < 0.02; f/u serially. EKG: AF with RVR f/u prior cardiac workup, which has included coronary angiogram several years ago and, as recently as "a year or two ago", multiple stress tests. Code(s): Z91.89 - OTH PERSONAL RISK FACTORS, NOT ELSEWHERE CLASSIFIED (7) Abdominal pain Assessment/Plan: f/u with [place] Guide Pt is in marked respiratory distress; would not do elective procedures until this has been stabilized. Code(s): R10.9 - UNSPECIFIED ABDOMINAL PAIN Qualifiers: Abdominal location: upper abdomen, unspecified Qualified Code(s): R10.10 - Upper abdominal pain, unspecified (8) Hypoxia Code(s): R09.02 - HYPOXEMIA (9) Polycythemia rubra vera Code(s): D45 - POLYCYTHEMIA VERA (10) Atrial fibrillation with rapid ventricular response Assessment/Plan: Continue diltiazem for HR control. Rivaroxaban held for possible abdominal procedure (though any elective procedure should be held until COPD is more stable and cardiac assessment completed); on IV heparin. ECHO for LVEF, chamber sizes, wall motion, valve status. F/u prior cardiac workup of coronary arteries. Code(s): I48.91 - UNSPECIFIED ATRIAL FIBRILLATION (11) Hyperlipidemia Assessment/Plan: Start statin, and keep LDL < 70 mg/dL. Code(s): E78.5 - HYPERLIPIDEMIA, UNSPECIFIED
[2019-04-08] MEDS ORDERED: buPROPion HCL 100 MG TABLET PO ONE (14:12)
--- NOTE | 2019-04-08 14:13 | CON.PULM ---
Consult Consult Specialty:: PULMONARY Referred by:: Dr Pickering Reason for Consultation:: shortness of breath - History of Present Illness Chief Complaint: abdominal discomfort History of Present Illness: 63yo male with h/o atrial fibrillation, COPD, polycythemia, RAINER/RLS on home CPAP , anxiety who was admitted with worsening abdominal pain. Plan for endoscopy so pre-procedure evaluation requested. Pt does report chronic shortness of breath, chest tightness and wheezing. Per , he is supposed to be on home O2 but pt refuses. Reports an unintentional weight loss of 20lbs over the past month. He uses Stiolto and albuterol at home. He started smoking at age 17, smoked as much as 2 PPD and still currently smokes. He was placed on prednisone about 2 weeks ago with improvement in dyspnea. Never been on steroids prior to that. - History Source History Provided By: Patient, Family Member Limitations to Obtaining History: No Limitations - Past Medical History Cardio/Vascular: Yes: AFIB Pulmonary: Yes: COPD, Sleep Apnea - Alcohol/Substance Use Hx Alcohol Use: No - Smoking History Smoking history: Current every day smoker Have you smoked in the past 12 months: Yes Aproximately how many cigarettes per day: 20 Home Medications - Allergies Allergies/Adverse Reactions: Allergies Allergy/AdvReac Type Severity Reaction Status Date / Time No Known Allergies Allergy Verified 04/07/19 18:55 - Home Medications Home Medications: Ambulatory Orders Albuterol 2.5/Ipratropium 0.5 [Duoneb -] 1 neb NEB Q4H 04/07/19 Albuterol Sulfate [Proair Hfa] 8.5 gm IH DAILY 04/07/19 Diltiazem HCl [Diltiazem 24Hr Cd] 180 mg PO HS 04/07/19 Gabapentin 600 mg PO BID 04/07/19 Rivaroxaban [Xarelto -] 20 mg PO DAILY 04/07/19 Tiotropium Br/Olodaterol HCl [Stiolto Respimat Inhal [place]] 2.5 mcg IH DAILY Diltiazem HCl [Diltiazem ER] 120 mg PO HS 04/08/19 Review of Systems - Review of Systems Constitutional: reports: Unintentional Wgt. Loss. denies: Chills, Fever Eyes: denies: Recent Change in Vision HENT: denies: Nasal Congestion, Throat Pain Neck: denies: Stiffness, Tenderness Cardiovascular: reports: Shortness of Breath. denies: Chest Pain Respiratory: reports: Cough, SOB on Exertion, Wheezing. denies: Hemoptysis Gastrointestinal: reports: Abdominal Pain, Bloating. denies: Nausea, Vomiting Genitourinary: denies: Dysuria, Hematuria Neurological: denies: Dizziness, Headache Endocrine: reports: Unexplained Weight Loss Physical Exam Vital Sings: Vital Signs Temperature 98.5 F 04/08/19 09:00 Pulse Rate 100 H 04/08/19 09:00 Respiratory Rate 04/08/19 09:00 Blood Pressure 124/60 04/08/19 09:00 O2 Sat by Pulse Oximetry (%) 89 L 04/08/19 09:30 Constitutional: Yes: Anxious Eyes: Yes: EOM Intact HENT: Yes: Atraumatic, Normocephalic Neck: Yes: Supple, Trachea Midline Cardiovascular: Yes: Pulse Irregular Respiratory: Yes: Poor Air Entry, Rhonchi, Wheezes ...Clubbing: No Gastrointestinal: Yes: Normal Bowel Sounds, Soft. No: Tenderness Edema: No Neurological: Yes: Alert, Oriented Labs: CBC, BMP 04/08/19 06:28 04/08/19 06:28 Assessment/Plan Acute COPD Exacerbation Obstructive Sleep Apnea Anxiety Atrial Fibrillation Unintentional Weight Loss/Failure to Thrive Smoker - IV medrol - inhaled bronchodilators standing and PRN - O2 to keep Spo2 >90% - CPAP at night - rate control - continue anticoagulation - smoking cessation discussed - would defer elective invasive procedures at this time until acute exacerbation improves Thank you for this consult Maykel Harp MD
--- NOTE | 2019-04-08 16:29 | CONSULT ---
Consultation: CONSULT SERVICE: Hematology/Oncology Resident HISTORY OF PRESENT ILLNESS: 63yo M with h/o of known polycythemia (suspected secondary), COPD, current tobacco user who presented to the hospital due to SOB. During his workup he was noted to have an H/H of 18/55 and we were consulted for medical guidance. Pt reports having some relief of his symptoms at this point after nebulized treatment. Pt reports seeing his organ builder, Dr. Light ([place]) in February without any regiment changes. He reports he was diagnosed with polycythemia 3 years prior and has received his most recent phlebotomy about 2 years. He denies being told about a genetic mutation. He admits to have COPD, restarting smoking about 6 months from today and having sleep apnea. He uses a CPAP machine at night, however he has not been wearing it recently. In addition, pt has had intermittent epigastric pain. He describes the pain mostly cramping, but it will develop into a sharp pain periodically. Pt reports usually after rapid Afib episodes he will have extreme pain followed by one episode of hematochezia, however this has not happened for over 1.5 years. Pt denies fever/chills, cough, n/v/d/c, chest pain, palpitations, bleeding or clotting issues PMHx: as above PSHx: SoHx: Tobacco - Current; restarted 6 months prior 1ppd Alcohol - Occasional Drugs - Marijuana, CBD oil FHx: Mom - Lung Ca - age 71 Dad - - age 81; CHF Maternal Uncle - ; stroke/DE age 56 REVIEW OF SYSTEMS: CONSTITUTIONAL: Absent: fever, chills, diaphoresis, generalized weakness, malaise, loss of appetite, weight change HEENT: Absent: rhinorrhea, nasal congestion, throat pain, throat swelling, difficulty swallowing, mouth swelling, ear pain, eye pain, visual changes CARDIOVASCULAR: Absent: chest pain, syncope, palpitations, irregular heart rate, lightheadedness , peripheral edema RESPIRATORY: Absent: cough, shortness of breath, dyspnea with exertion, orthopnea, wheezing, stridor, hemoptysis GASTROINTESTINAL: Absent: abdominal pain, abdominal distension, nausea, vomiting, diarrhea, constipation, melena, hematochezia GENITOURINARY: Absent: dysuria, frequency, urgency, hesitancy, hematuria, flank pain, genital pain MUSCULOSKELETAL: Absent: myalgia, arthralgia, joint swelling, back pain, neck pain SKIN: Absent: rash, itching, pallor HEMATOLOGIC/IMMUNOLOGIC: Absent: easy bleeding, easy bruising, lymphadenopathy, frequent infections ENDOCRINE: Absent: unexplained weight gain, unexplained weight loss, heat intolerance, cold intolerance NEUROLOGIC: Absent: headache, focal weakness or paresthesias, dizziness, unsteady gait, seizure, mental status changes, bladder or bowel incontinence PSYCHIATRIC: Absent: anxiety, depression, suicidal or homicidal ideation, hallucinations. PHYSICAL EXAMINATION Vital Signs - 24 hr 04/07/19 04/08/19 04/08/19 16:41 03:38 05:07 Temperature 97.9 F Pulse Rate Pulse Rate [ 105 H 140 H Left Radial] Respiratory 18 20 Rate Blood Pressure Blood Pressure 113/71 [Left Arm] Blood Pressure 125/66 [Right Arm] O2 Sat by Pulse 90 L 97 89 L Oximetry (%) 04/08/19 04/08/19 04/08/19 05:51 07:22 09:00 Temperature 98.5 F Pulse Rate 100 H Pulse Rate [ 103 H Left Radial] Respiratory 20 20 Rate Blood Pressure 124/60 Blood Pressure 102/68 [Left Arm] Blood Pressure [Right Arm] O2 Sat by Pulse 89 L 89 L Oximetry (%) 04/08/19 09:30 Temperature Pulse Rate Pulse Rate [ Left Radial] Respiratory Rate Blood Pressure Blood Pressure [Left Arm] Blood Pressure [Right Arm] O2 Sat by Pulse 89 L Oximetry (%) GENERAL: NAD, Awake, alert, and fully oriented, in no acute distress. HEENT: NC/AT, EOMi, RADHA, sclera anicteric, no pallor, MMM, no thrush or mucositis NECK: No JVD, no lymphadenopathy LUNGS: End-expiratory wheezes at the bases bilaterally toerhwise clear to auscultation. No rales. 91% on 2LNC HEART: Irregularly irregular with normal rate, normal S1 and S2 without murmur ABDOMEN: Soft, obese, ? rectus diathesis, normoactive BS, nontender, no guarding , no rebound, no hepatomegaly or splenomegaly. MUSCULOSKELETAL: Normal range of motion at all joints. No bony deformities or tenderness. No CVA tenderness. EXTREMITIES: 2+ pulses, warm, well-perfused. No calf tenderness. Trace pitting peripheral edema to ankles. No nail bed pathology PSYCHIATRIC: Cooperative. Good eye contact. Appropriate mood and affect. SKIN: Warm, dry, no rashes or lesions noted. Laboratory Results - last 24 hr 04/07/19 04/07/19 04/07/19 12:20 20:10 20:10 WBC RBC Hgb Hct MCV MCH MCHC RDW Plt Count MPV Absolute Neuts (auto) Neutrophils % Neutrophils % (Manual) Band Neutrophils % Lymphocytes % Lymphocytes % (Manual) Monocytes % Monocytes % (Manual) Eosinophils % Eosinophils % (Manual) Basophils % Basophils % (Manual) Myelocytes % (Man) Promyelocytes % (Man) Blast Cells % (Manual) Nucleated RBC % Metamyelocytes Hypochromia Toxic Granulation Platelet Estimate Platelet Comment Polychromasia Poikilocytosis Anisocytosis Microcytosis Macrocytosis Tear Drop Cells PT with INR INR PTT (Actin FS) 35.4 Sodium 136 Potassium 4.7 Chloride 96 L Carbon Dioxide 33 H Anion Gap 6 L BUN 23.6 H Creatinine 1.2 Est GFR (CKD-EPI)AfAm 74.66 Est GFR (CKD-EPI)NonAf 64.42 Random Glucose 75 Calcium 9.2 Phosphorus Magnesium Total Bilirubin 0.6 AST 27 ALT 38 Alkaline Phosphatase 74 Troponin I < 0.02 Total Protein 6.8 Albumin 3.6 Triglycerides Cholesterol Total LDL Cholesterol HDL Cholesterol Lipase 101 Blood Type A POSITIVE Antibody Screen Negative 04/08/19 04/08/19 04/08/19 06:28 06:28 06:28 WBC 6.9 RBC 6.20 H Hgb 18.3 H Hct 55.6 H MCV 89.6 MCH 29.5 MCHC 33.0 RDW 14.9 Plt Count 223 MPV 7.8 Absolute Neuts (auto) 6.5 Neutrophils % 94.1 H Neutrophils % (Manual) 92.0 H Band Neutrophils % 2.0 Lymphocytes % 4.8 L D Lymphocytes % (Manual) 2.0 L Monocytes % 0.9 L D Monocytes % (Manual) 0 L Eosinophils % 0.1 Eosinophils % (Manual) 0.0 Basophils % 0.1 Basophils % (Manual) 0.0 Myelocytes % (Man) 0 Promyelocytes % (Man) 0 Blast Cells % (Manual) 0 Nucleated RBC % 0 Metamyelocytes 0 Hypochromia 0 Toxic Granulation 2+ Platelet Estimate Normal Platelet Comment Present Polychromasia 0 Poikilocytosis 2+ Anisocytosis 1+ Microcytosis 1+ Macrocytosis 0 Tear Drop Cells 2+ PT with INR 11.70 INR 0.99 PTT (Actin FS) Sodium 138 Potassium 4.8 Chloride 97 L Carbon Dioxide 35 H Anion Gap 7 L BUN 22.9 H Creatinine 1.3 Est GFR (CKD-EPI)AfAm 67.78 Est GFR (CKD-EPI)NonAf 58.48 Random Glucose 167 H Calcium 9.4 Phosphorus 4.5 Magnesium 2.0 Total Bilirubin 0.7 AST 19 ALT 35 Alkaline Phosphatase 73 Troponin I Total Protein 6.6 Albumin 3.5 Triglycerides Cholesterol Total LDL Cholesterol HDL Cholesterol Lipase Blood Type Antibody Screen 04/08/19 04/08/19 06:28 06:28 WBC RBC Hgb Hct MCV MCH MCHC RDW Plt Count MPV Absolute Neuts (auto) Neutrophils % Neutrophils % (Manual) Band Neutrophils % Lymphocytes % Lymphocytes % (Manual) Monocytes % Monocytes % (Manual) Eosinophils % Eosinophils % (Manual) Basophils % Basophils % (Manual) Myelocytes % (Man) Promyelocytes % (Man) Blast Cells % (Manual) Nucleated RBC % Metamyelocytes Hypochromia Toxic Granulation Platelet Estimate Platelet Comment Polychromasia Poikilocytosis Anisocytosis Microcytosis Macrocytosis Tear Drop Cells PT with INR INR PTT (Actin FS) 70.4 H Sodium Potassium Chloride Carbon Dioxide Anion Gap BUN Creatinine Est GFR (CKD-EPI)AfAm Est GFR (CKD-EPI)NonAf Random Glucose Calcium Phosphorus Magnesium Total Bilirubin AST ALT Alkaline Phosphatase Troponin I Total Protein Albumin Triglycerides 56 Cholesterol 196 Total LDL Cholesterol 97 HDL Cholesterol 76 H Lipase Blood Type Antibody Screen Active Medications Generic Name Dose Route Start Last Admin Trade Name Freq PRN Reason Stop Dose Admin Albuterol Sulfate 1 amp 04/08/19 04:32 Ventolin 0.083% Nebulizer Soln - NEB RTID PRN SHORT OF BREATH/WHEEZING Albuterol/Ipratropium 1 amp 04/07/19 20:27 04/08/19 13:56 Duoneb - NEB 1 amp RQ4H BEAU Administration Atorvastatin Calcium 10 mg 04/08/19 22:00 Lipitor - PO HS BEAU Bupropion HCl 150 mg 04/08/19 14:12 Wellbutrin - PO 04/08/19 14:13 ONCE ONE Diltiazem HCl 180 mg 04/08/19 10:00 Cardizem Cd - PO DAILY BEAU Gabapentin 600 mg 04/07/19 22:00 04/08/19 10:21 Neurontin - PO Not Given BID BEAU Heparin Sodium (Porcine) 1,000 unit 04/07/19 18:17 Heparin - IVPUSH PRN PRN Heparin Heparin Sodium (Porcine) 5,000 unit 04/07/19 18:17 Heparin - IVPUSH PRN PRN Heparin Dextrose/Sodium Chloride 1,000 mls @ 100 mls/hr 04/07/19 15:30 04/07/19 18:13 D5-1/2ns - IV 100 mls/hr ASDIR BEAU Administration Heparin Sodium/Dextrose 25,000 units in 500 mls @ 20 mls/hr 04/07/19 18:30 22:10 Heparin Infusion - IVPB 1,000 units/hr TITR BEAU 20 mls/hr Administration Protocol 1,000 UNITS/HR Methylprednisolone Sodium Succinate 40 mg 04/07/19 19:00 04/08/19 10:21 Solu-Medrol - IVPUSH 40 mg Q8H-IV BEAU Administration Pantoprazole Sodium 40 mg 04/07/19 22:00 04/08/19 10:21 Protonix Iv IVPUSH 40 mg BID BEAU Administration Sodium Chloride 2 spray 04/08/19 11:11 [place] Nasal [place] - NS TID PRN NASAL CONGESTION ASSESSMENT/PLAN: Polycythemia Polypoid cystic lesion of bladder Atrial fibrillation COPD exacerbation Tobacco Use disorder Abdominal pain Obstructive Sleep [place] Fatty infiltration of Liver --Will call patient's organ builder (Dr. Light) and determine if patient has KALINA II mutation --Suspect patient has secondary polycythemia 2/2 to his COPD, smoking, and RAINER --If KALINA II mutation: HCT goal is to <45 through either hydroxyurea v. therapeutic phlebotomy --If secondary polycythemia: goal is <55-60 due to compensatory efforts to maintain RBC's --Polypoid cyst of bladder will need interval f/u with outpatient PCP --CTA A/P reviewed with no evidence of mesenteric ischemia --GI on board for w/u of possible hernia (? Hiatal) for cause of epigastric pain --Rest per primary team Case discussed with Dr. Nhi Gaspar, DO - IM [id number] Dispo: We will continue to follow the patient. Thank you for this consultative opportunity. Visit type - Emergency Visit Emergency Visit: Yes ED Registration Date: 04/07/19 Care time: The patient presented to the Emergency Department on the above date and was hospitalized for further evaluation of their emergent condition. - New Patient This patient is new to me today: No - Critical Care Critical Care patient: No ATTENDING PHYSICIAN STATEMENT I saw and evaluated the patient. I reviewed the resident's note and discussed the case with the resident. I agree with the resident's findings and plan as documented. SUBJECTIVE: OBJECTIVE: ASSESSMENT AND PLAN:
--- NOTE | 2019-04-08 17:09 | PN ---
Physical Exam: SUBJECTIVE: Patient seen and examined at bedside. He was admitted overnight. This AM he offers no complaints and would like to eat. OBJECTIVE: Vital Signs Temp Pulse Resp BP Pulse Ox 98.6 F 101 H 19 122/53 L 90 L 04/08/19 22:00 04/08/19 22:00 04/08/19 22:00 04/08/19 22:00 04/08/19 21:00 GENERAL: AOx3, in no acute distress. HEAD: NCAT EYES: ISAI, EOMI, conjunctiva clear. ENT: Ears normal, nares patent, oropharynx clear without exudates. Moist mucous membranes. NECK: Normal range of motion, supple without lymphadenopathy, JVD, or masses. LUNGS: CTAB. No wheezes, and no crackles. No accessory muscle use. HEART: RRR s1 s2 ABDOMEN: Soft, BS present in all 4 quadrants, non-distended, no JVD, MUSCULOSKELETAL: No bony deformities or tenderness. No CVA tenderness. UPPER EXTREMITIES: 2+ pulses, warm, well-perfused. No cyanosis. No clubbing. No peripheral edema. LOWER EXTREMITIES: 2+ pulses, warm, well-perfused. No calf tenderness. No peripheral edema. NEUROLOGICAL: No focal deficits. Cranial nerves II-XII intact. Normal speech. Gait not appreciated. PSYCHIATRIC: Cooperative. Good eye contact. Appropriate mood and affect. SKIN: Warm, dry, normal turgor, no rashes or lesions noted, normal capillary refill. Laboratory Results - last 24 hr 04/07/19 04/07/19 04/07/19 12:20 20:10 20:10 WBC RBC Hgb Hct MCV MCH MCHC RDW Plt Count MPV Absolute Neuts (auto) Neutrophils % Neutrophils % (Manual) Band Neutrophils % Lymphocytes % Lymphocytes % (Manual) Monocytes % Monocytes % (Manual) Eosinophils % Eosinophils % (Manual) Basophils % Basophils % (Manual) Myelocytes % (Man) Promyelocytes % (Man) Blast Cells % (Manual) Nucleated RBC % Metamyelocytes Hypochromia Toxic Granulation Platelet Estimate Platelet Comment Polychromasia Poikilocytosis Anisocytosis Microcytosis Macrocytosis Tear Drop Cells PT with INR INR PTT (Actin FS) 35.4 Sodium 136 Potassium 4.7 Chloride 96 L Carbon Dioxide 33 H Anion Gap 6 L BUN 23.6 H Creatinine 1.2 Est GFR (CKD-EPI)AfAm 74.66 Est GFR (CKD-EPI)NonAf 64.42 Random Glucose 75 Calcium 9.2 Phosphorus Magnesium Total Bilirubin 0.6 AST 27 ALT 38 Alkaline Phosphatase 74 Troponin I < 0.02 Total Protein 6.8 Albumin 3.6 Triglycerides Cholesterol Total LDL Cholesterol HDL Cholesterol Lipase 101 Blood Type A POSITIVE Antibody Screen Negative 04/08/19 04/08/19 04/08/19 06:28 06:28 06:28 WBC 6.9 RBC 6.20 H Hgb 18.3 H Hct 55.6 H MCV 89.6 MCH 29.5 MCHC 33.0 RDW 14.9 Plt Count 223 MPV 7.8 Absolute Neuts (auto) 6.5 Neutrophils % 94.1 H Neutrophils % (Manual) 92.0 H Band Neutrophils % 2.0 Lymphocytes % 4.8 L D Lymphocytes % (Manual) 2.0 L Monocytes % 0.9 L D Monocytes % (Manual) 0 L Eosinophils % 0.1 Eosinophils % (Manual) 0.0 Basophils % 0.1 Basophils % (Manual) 0.0 Myelocytes % (Man) 0 Promyelocytes % (Man) 0 Blast Cells % (Manual) 0 Nucleated RBC % 0 Metamyelocytes 0 Hypochromia 0 Toxic Granulation 2+ Platelet Estimate Normal Platelet Comment Present Polychromasia 0 Poikilocytosis 2+ Anisocytosis 1+ Microcytosis 1+ Macrocytosis 0 Tear Drop Cells 2+ PT with INR 11.70 INR 0.99 PTT (Actin FS) Sodium 138 Potassium 4.8 Chloride 97 L Carbon Dioxide 35 H Anion Gap 7 L BUN 22.9 H Creatinine 1.3 Est GFR (CKD-EPI)AfAm 67.78 Est GFR (CKD-EPI)NonAf 58.48 Random Glucose 167 H Calcium 9.4 Phosphorus 4.5 Magnesium 2.0 Total Bilirubin 0.7 AST 19 ALT 35 Alkaline Phosphatase 73 Troponin I Total Protein 6.6 Albumin 3.5 Triglycerides Cholesterol Total LDL Cholesterol HDL Cholesterol Lipase Blood Type Antibody Screen 04/08/19 04/08/19 06:28 06:28 WBC RBC Hgb Hct MCV MCH MCHC RDW Plt Count MPV Absolute Neuts (auto) Neutrophils % Neutrophils % (Manual) Band Neutrophils % Lymphocytes % Lymphocytes % (Manual) Monocytes % Monocytes % (Manual) Eosinophils % Eosinophils % (Manual) Basophils % Basophils % (Manual) Myelocytes % (Man) Promyelocytes % (Man) Blast Cells % (Manual) Nucleated RBC % Metamyelocytes Hypochromia Toxic Granulation Platelet Estimate Platelet Comment Polychromasia Poikilocytosis Anisocytosis Microcytosis Macrocytosis Tear Drop Cells PT with INR INR PTT (Actin FS) 70.4 H Sodium Potassium Chloride Carbon Dioxide Anion Gap BUN Creatinine Est GFR (CKD-EPI)AfAm Est GFR (CKD-EPI)NonAf Random Glucose Calcium Phosphorus Magnesium Total Bilirubin AST ALT Alkaline Phosphatase Troponin I Total Protein Albumin Triglycerides 56 Cholesterol 196 Total LDL Cholesterol 97 HDL Cholesterol 76 H Lipase Blood Type Antibody Screen Active Medications Albuterol Sulfate (Ventolin 0.083% Nebulizer Soln -) 1 amp NEB RTID PRN PRN Reason: SHORT OF BREATH/WHEEZING Albuterol/Ipratropium (Duoneb -) 1 amp NEB RQ4H PATIENCE Last Admin: 04/08/19 16:00 Dose: Not Given Atorvastatin Calcium (Lipitor -) 10 mg PO HS PATIENCE Last Admin: 04/08/19 21:18 Dose: 10 mg Bupropion HCl (Wellbutrin Xl -) 150 mg PO DAILY [facility] Stop: 04/10/19 10:01 Last Admin: 04/08/19 21:18 Dose: 150 mg Bupropion HCl (Wellbutrin Xl -) 300 mg PO DAILY PATIENCE Diltiazem HCl (Cardizem Cd -) 180 mg PO DAILY PATIENCE Gabapentin (Neurontin -) 600 mg PO BID PATIENCE Last Admin: 04/08/19 21:18 Dose: Not Given Heparin Sodium (Porcine) (Heparin -) 1,000 unit IVPUSH PRN PRN PRN Reason: Heparin Heparin Sodium (Porcine) (Heparin -) 5,000 unit IVPUSH PRN PRN PRN Reason: Heparin Dextrose/Sodium Chloride (D5-1/2ns -) 1,000 mls @ 100 mls/hr IV ASDIR PATIENCE Last Admin: 04/07/19 18:13 Dose: 100 mls/hr Heparin Sodium/Dextrose (Heparin Infusion -) 25,000 units in 500 mls @ 20 mls/ hr IVPB TITR PATIENCE; Protocol Last Admin: 04/08/19 21:16 Dose: 1,000 units/hr, 20 mls/hr Methylprednisolone Sodium Succinate (Solu-Medrol -) 40 mg IVPUSH Q8H-IV PATIENCE Last Admin: 01/30/20 18:30 Dose: 40 mg Pantoprazole Sodium (Protonix Iv) 40 mg IVPUSH BID PATIENCE Last Admin: 04/08/19 21:17 Dose: 40 mg Sodium Chloride ([place] -) 2 spray NS TID PRN PRN Reason: NASAL CONGESTION ASSESSMENT/PLAN: 63 y/o male PMH COPD, RAINER, polycythemia vera, RLS, anxiety, arthritis, and afib c/o abdominal pain. # Abdominal Pain - Abdominal US NEG - No longer a complaint - Further exploration consistent with GERD; large, acidic, fatty meals at night , pain with recumbency, dyspepsia - GI consulted: UGIS for AM. When optimized from cardiopulmonary standpoint, upper endoscopy could be undertaken. - Polypoid cyst of bladder will need interval f/u with outpatient PCP # A-fib - HOLD home regimen of Xarelto for poss endoscopy Friday - Heparin GGT, which can be held a few hours prior to procedure - Cardiology consulted # Polycythemia vera - Primary graduate fellow Dr. Light - Heme/onc consulted - Patient likely has secondary polycythemia d/t comorbid COPD, smoking, and RAINER. If secondary polycythemia: goal is <55-60 due to compensatory efforts to maintain RBC's. If KALINA II mutation: HCT goal is to <45 through either hydroxyurea v. therapeutic phlebotomy. # COPD - Duonebs patience, albuterol prn, solumedrol - Pulm consulted for pre-procedure eval: defer elective invasive procedures at this time until acute exacerbation improves # RAINER - CPAP HS # F/E/N - NS when NPO - Cont. to monitor - PO; NPO after midnight for UGIS # DVT prophylaxis - Heparin SQ # Disposition - Admit to med/surg Ernesto Bennett MD Visit type - Emergency Visit Emergency Visit: No - New Patient This patient is new to me today: Yes Date on this admission: 04/08/19 - Critical Care Critical Care patient: No ATTENDING PHYSICIAN STATEMENT I saw and evaluated the patient. I reviewed the resident's note and discussed the case with the resident. I agree with the resident's findings and plan as documented. SUBJECTIVE: OBJECTIVE: ASSESSMENT AND PLAN:
--- NOTE | 2019-04-08 18:31 | PN ---
Teaching Attending Note Name of Resident: Ernesto Bennett ATTENDING PHYSICIAN STATEMENT I saw and evaluated the patient. I reviewed the resident's note and discussed the case with the resident. I agree with the resident's findings and plan as documented. SUBJECTIVE: Patient is a 63yo male with Pmhx of atrial fibrillation on xarelto, COPD, polycythemia, smoker 2PPD since age 17, RAINER on home CPAP, anxiety who was admitted with worsening abdominal pain. patient reports chronic shortness of breath but does not want to use any oxygen , and has severe anxiety problems as per patient. reports 20lbs weight loss over the past month. He uses albuterol at home as needed. was started on prednisone about 2 weeks ago with improvement of his SOB. OBJECTIVE: Vital Signs Temperature 98.9 F 04/08/19 16:30 Pulse Rate 102 H 04/08/19 16:30 Respiratory Rate 19 04/08/19 16:30 Blood Pressure 109/58 L 04/08/19 16:30 O2 Sat by Pulse Oximetry (%) 89 L 04/08/19 09:30 GENERAL: The patient is awake, alert, and fully oriented, in no acute distress. HEAD: Normal with no signs of trauma. EYES: PERRL, extraocular movements intact, sclera anicteric, conjunctiva clear. ENT: Ears normal, oropharynx clear without exudates, moist mucous membranes. NECK: Trachea midline, full range of motion, supple. LUNGS: decreased Breath sounds BL, + wheezing bl, no crackles, no accessory muscle use. HEART: irregularly -irregular ,S1, S2 without murmur, rub or gallop. ABDOMEN: Soft, nontender, nondistended, normoactive bowel sounds, no guarding, no rebound, no hepatosplenomegaly, no masses. EXTREMITIES: 2+ pulses, warm, well-perfused, no edema. NEUROLOGICAL: Cranial nerves II through XII grossly intact. Normal speech, gait not observed. PSYCH: Normal mood, normal affect. SKIN: Warm, dry, normal turgor, no rashes or lesions noted CBCD WBC 6.9 K/mm3 (4.0-10.0) 04/08/19 06:28 RBC 6.20 M/mm3 (4.00-5.60) H 04/08/19 06:28 Hgb 18.3 GM/dL (11.7-16.9) H 04/08/19 06:28 Hct 55.6 % (35.4-49) H 04/08/19 06:28 MCV 89.6 fl (80-96) 04/08/19 06:28 MCHC 33.0 g/dl (32.0-35.9) 04/08/19 06:28 RDW 14.9 % (11.9-15.9) 04/08/19 06:28 Plt Count 223 K/MM3 (134-434) 04/08/19 06:28 MPV 7.8 fl (7.5-11.1) 04/08/19 06:28 CMP Sodium 138 mmol/L (136-145) 04/08/19 06:28 Potassium 4.8 mmol/L (3.5-5.1) 04/08/19 06:28 Chloride 97 mmol/L (98-107) L 04/08/19 06:28 Carbon Dioxide 35 mmol/L (21-32) H 04/08/19 06:28 Anion Gap 7 MMOL/L (8-16) L 04/08/19 06:28 BUN 22.9 mg/dL (7-18) H 04/08/19 06:28 Creatinine 1.3 mg/dL (0.55-1.3) 04/08/19 06:28 Random Glucose 167 mg/dL (74-106) H 04/08/19 06:28 Calcium 9.4 mg/dL (8.5-10.1) 04/08/19 06:28 Total Bilirubin 0.7 mg/dL (0.2-1) 04/08/19 06:28 AST 19 U/L (15-37) 04/08/19 06:28 ALT 35 U/L (13-61) 04/08/19 06:28 Alkaline Phosphatase 73 U/L (45-117) 04/08/19 06:28 Total Protein 6.6 g/dl (6.4-8.2) 04/08/19 06:28 Albumin 3.5 g/dl (3.4-5.0) 04/08/19 06:28 CARDIAC ENZYMES Troponin I < 0.02 ng/ml (0.00-0.05) 04/07/19 12:20 Home Medications Medication Instructions Recorded Albuterol 2.5/Ipratropium 0.5 1 neb NEB Q4H 04/07/19 [Duoneb -] Albuterol Sulfate [Proair Hfa] 8.5 gm IH DAILY 04/07/19 Diltiazem HCl [Diltiazem 24Hr Cd] 180 mg PO HS 04/07/19 Gabapentin 600 mg PO BID 04/07/19 Rivaroxaban [Xarelto -] 20 mg PO DAILY 04/07/19 Tiotropium Br/Olodaterol HCl 2.5 mcg IH DAILY 04/07/19 [Stiolto Respimat Inhal Conrad] Diltiazem HCl [Diltiazem ER] 120 mg PO HS 04/08/19 Current Medications Generic Name Dose Route Start Last Admin Trade Name Freq PRN Reason Stop Dose Admin Albuterol Sulfate 1 amp 04/08/19 04:32 Ventolin 0.083% Nebulizer Soln - NEB RTID PRN SHORT OF BREATH/WHEEZING Albuterol/Ipratropium 1 amp 04/07/19 20:27 04/08/19 13:56 Duoneb - NEB 1 amp RQ4H BEAU Administration Atorvastatin Calcium 10 mg 04/08/19 22:00 Lipitor - PO HS BEAU Bupropion HCl 150 mg 04/08/19 14:12 Wellbutrin - PO 04/08/19 14:13 ONCE ONE Diltiazem HCl 180 mg 04/08/19 10:00 Cardizem Cd - PO DAILY BEAU Gabapentin 600 mg 04/07/19 22:00 04/08/19 10:21 Neurontin - PO Not Given BID BEAU Heparin Sodium (Porcine) 1,000 unit 04/07/19 18:17 Heparin - IVPUSH PRN PRN Heparin Heparin Sodium (Porcine) 5,000 unit 04/07/19 18:17 Heparin - IVPUSH PRN PRN Heparin Dextrose/Sodium Chloride 1,000 mls @ 100 mls/hr 04/07/19 15:30 04/07/19 18:13 D5-1/2ns - IV 100 mls/hr ASDIR BEAU Administration Heparin Sodium/Dextrose 25,000 units in 500 mls @ 20 mls/hr 04/07/19 18:30 22:10 Heparin Infusion - IVPB 1,000 units/hr TITR BEAU 20 mls/hr Administration Protocol 1,000 UNITS/HR Methylprednisolone Sodium Succinate 40 mg 04/07/19 19:00 04/08/19 10:21 Solu-Medrol - IVPUSH 40 mg Q8H-IV BEAU Administration Pantoprazole Sodium 40 mg 04/07/19 22:00 04/08/19 10:21 Protonix Iv IVPUSH 40 mg BID BEAU Administration Sodium Chloride 2 spray 04/08/19 11:11 [place] Nasal [place] - NS TID PRN NASAL CONGESTION ASSESSMENT AND PLAN: Pt. is a 63 y.o. F w/ PMHx. of Afib (on Xarelto), COPD (not on home O2 by choice ), Polycythemia vera ( last phlebotomy 2 years ago), RLS, Anxiety and Arthritis presents for abdominal pain that has been worsening over the last 2 weeks. #Abdominal Pain :Abd. US negative for gall stones, shows fatty liver, 1.3 cm R. hepatic cyst, pancreatic duct 2mm. #aFIB XARELTO ON HOLD, ON HEPARIN NOW, CARDIZEM CONTINUE # Polycythemia : ON OXYGEN 2 LITER , O2 to keep Spo2 >90% #ACUTE COPD EXACERBATION : continue nebulizers, and steroids, pulmonology consult, for the gael for the procedure, #Afib ON HEPARIN drip now, HOLD XARELTO #Obstructive Sleep Apnea, CPAP at night #Anxiety DISORDER #Unintentional Weight Loss/Failure to Thrive #Smoker: smoking cessation discuss dvT PX: HEPARIN DRIP PER PULMONARY : TO defer elective invasive procedures at this time until acute exacerbation improves
--- NOTE | 2019-04-08 20:20 | PN.GI ---
GI Progress Note Subjective: Covering for Dr. Henry: Describes epigastric pressure, no pain Tolerating PO tonight Concerned because he was told that he had an upper abdominal hernia - Objective Vital Signs: Vital Signs Temperature 98.9 F 04/08/19 16:30 Pulse Rate 102 H 04/08/19 16:30 Respiratory Rate 19 04/08/19 16:30 Blood Pressure 109/58 L 04/08/19 16:30 O2 Sat by Pulse Oximetry (%) 89 L 04/08/19 09:30 Constitutional: Calm Eyes: No: Sclera Icterus Cardiovascular: Yes: Tachycardia Respiratory: Yes: Tachypnea, Wheezes Gastrointestinal Inspection: Yes: Other (+ small rectus diastasis of upper abdomen) ...Auscultate: Yes: Normoactive Bowel Sounds ...Palpate: No: Hepatomegaly, Splenomegaly, Tenderness ...Percussion: No: Tympanitic Edema: Yes Edema: LLE: Trace, RLE: Trace Neurological: Yes: Alert Labs: CBC, BMP 04/08/19 06:28 04/08/19 06:28 INR, PTT INR 0.99 (0.83-1.09) 04/08/19 06:28 Hepatic Panel Total Bilirubin 0.7 mg/dL (0.2-1) 04/08/19 06:28 AST 19 U/L (15-37) 04/08/19 06:28 ALT 35 U/L (13-61) 04/08/19 06:28 Alkaline Phosphatase 73 U/L (45-117) 04/08/19 06:28 Albumin 3.5 g/dl (3.4-5.0) 04/08/19 06:28 Problem List - Problems (1) Abdominal pain Assessment/Plan: Upper abdominal pain resolved, no more a pressure. No upper abdominal hernia appreciated. He has a small rectus diastasis. Ordered UGIS for AM When optimized from cardiopulmonary standpoint, upper endoscopy could be undertaken Dr. Abebe covering for Dr. Henry tomorrow Code(s): R10.9 - UNSPECIFIED ABDOMINAL PAIN Qualifiers: Abdominal location: upper abdomen, unspecified Qualified Code(s): R10.10 - Upper abdominal pain, unspecified
[2019-04-08] MEDS ORDERED: ATORVASTATIN CA 10 MG TABLET (FP) ONE (20:27)
[2019-04-08] MEDS ORDERED: GABAPENTIN 100 MG CAPSULE ONE (20:28)
[2019-04-08] MEDS ORDERED: PANTOPRAZOLE SODIUM 40 MG VIAL ONE (20:28)
[2019-04-08] MEDS: HEPARIN INFUSION - 25,000 UNITS/500 ML INFUS.BAG IVPB SCH (21:16)
[2019-04-08] MEDS: ATORVASTATIN CA 10 MG TABLET (FP) PO SCH (21:18)
[2019-04-08] MEDS ORDERED: MELATONIN 5 MG TABLETS ONE (23:43)
[2019-04-08] MEDS ORDERED: SODIUM CHLORIDE 1,000 ML IV SCH (23:45)
[2019-04-09] MEDS: ALBUTEROL SO4 2.5/IPRATROPIUM 0.5 INH SOL 3 ML VIAL.NEB. NEB SCH ×6 (00:10→20:05)
[2019-04-09] MEDS: methylPREDNISolone NA SUCC 40 MG/1 ML VIAL IVPUSH SCH ×3 (02:45→18:38)
[2019-04-09 06:26] LABS: HEMATOCRIT 52.7 % (35.4-49); HEMOGLOBIN 17.5 GM/dL (11.7-16.9); MCH 29.7 pg (25.7-33.7); MCHC 33.1 g/dl (32.0-35.9); MEAN CELL VOLUME 89.8 fl (80-96); MEAN PLT VOLUME 7.4 fl (7.5-11.1); PLATELET COUNT 203 K/MM3 (134-434); RBC 5.87 M/mm3 (4.00-5.60); RDW 14.6 % (11.9-15.9); WHITE BLOOD COUNT 10.1 K/mm3 (4.0-10.0)
[2019-04-09] MEDS: DEXTROSE 5%-0.45% SALINE 1,000 ML IV SCH ×2 (07:41→15:42)
[2019-04-09] MEDS: HEPARIN INFUSION - 25,000 UNITS/500 ML INFUS.BAG IVPB SCH (07:41)
--- NOTE | 2019-04-09 07:42 | PN ---
Progress Note (short form) - Note Progress Note: Patient seen and examined 63 year old male, with a significant PMH of Afib (on Xarelto), COPD, polycythemia ? secondary, restless leg syndrome, and anxiety, who presents to the ED for evaluation of abdominal pain for 2 weeks. Patient complains of diffuse upper abdominal pain, which has been chronic over the past two years but has become progressively worse over the past two weeks. He notes the pain is onset typically ~20-30 minutes after eating, and lasts for ~2 hours. H Social History: Current everyday smoker (quit for a few years, and returned to smoking 1ppd 6 months ago). - Psycho Social/Smoking Cessation Hx Smoking History: Current every day smoker - Vital Signs Vital Signs - 24 hr 04/07/19 04/08/19 04/08/19 16:41 03:38 05:07 Temperature 97.9 F Pulse Rate Pulse Rate [ 105 H 140 H Left Radial] Respiratory 18 20 Rate Blood Pressure Blood Pressure 113/71 [Left Arm] Blood Pressure 125/66 [Right Arm] O2 Sat by Pulse 90 L 97 89 L Oximetry (%) 04/08/19 04/08/19 04/08/19 05:51 07:22 09:00 Temperature 98.5 F Pulse Rate 100 H Pulse Rate [ 103 H Left Radial] Respiratory 20 20 Rate Blood Pressure 124/60 Blood Pressure 102/68 [Left Arm] Blood Pressure [Right Arm] O2 Sat by Pulse 89 L 89 L Oximetry (%) 04/08/19 09:30 Temperature Pulse Rate Pulse Rate [ Left Radial] Respiratory Rate Blood Pressure Blood Pressure [Left Arm] Blood Pressure [Right Arm] O2 Sat by Pulse 89 L Oximetry (%) Cor: RSR, No murmurs, No gallops Lungs: Clear to P&A Abd: Soft, Normal bowel sounds, No organomegaly Ext:No significant edema Laboratory Results - last 24 hr 04/07/19 04/07/19 04/07/19 12:20 20:10 20:10 WBC RBC Hgb Hct MCV MCH MCHC RDW Plt Count MPV Absolute Neuts (auto) Neutrophils % Neutrophils % (Manual) Band Neutrophils % Lymphocytes % Lymphocytes % (Manual) Monocytes % Monocytes % (Manual) Eosinophils % Eosinophils % (Manual) Basophils % Basophils % (Manual) Myelocytes % (Man) Promyelocytes % (Man) Blast Cells % (Manual) Nucleated RBC % Metamyelocytes Hypochromia Toxic Granulation Platelet Estimate Platelet Comment Polychromasia Poikilocytosis Anisocytosis Microcytosis Macrocytosis Tear Drop Cells PT with INR INR PTT (Actin FS) 35.4 Sodium 136 Potassium 4.7 Chloride 96 L Carbon Dioxide 33 H Anion Gap 6 L BUN 23.6 H Creatinine 1.2 Est GFR (CKD-EPI)AfAm 74.66 Est GFR (CKD-EPI)NonAf 64.42 Random Glucose 75 Calcium 9.2 Phosphorus Magnesium Total Bilirubin 0.6 AST 27 ALT 38 Alkaline Phosphatase 74 Troponin I < 0.02 Total Protein 6.8 Albumin 3.6 Triglycerides Cholesterol Total LDL Cholesterol HDL Cholesterol Lipase 101 Blood Type A POSITIVE Antibody Screen Negative 04/08/19 04/08/19 04/08/19 06:28 06:28 06:28 WBC 6.9 RBC 6.20 H Hgb 18.3 H Hct 55.6 H MCV 89.6 MCH 29.5 MCHC 33.0 RDW 14.9 Plt Count 223 MPV 7.8 Absolute Neuts (auto) 6.5 Neutrophils % 94.1 H Neutrophils % (Manual) 92.0 H Band Neutrophils % 2.0 Lymphocytes % 4.8 L D Lymphocytes % (Manual) 2.0 L Monocytes % 0.9 L D Monocytes % (Manual) 0 L Eosinophils % 0.1 Eosinophils % (Manual) 0.0 Basophils % 0.1 Basophils % (Manual) 0.0 Myelocytes % (Man) 0 Promyelocytes % (Man) 0 Blast Cells % (Manual) 0 Nucleated RBC % 0 Metamyelocytes 0 Hypochromia 0 Toxic Granulation 2+ Platelet Estimate Normal Platelet Comment Present Polychromasia 0 Poikilocytosis 2+ Anisocytosis 1+ Microcytosis 1+ Macrocytosis 0 Tear Drop Cells 2+ PT with INR 11.70 INR 0.99 PTT (Actin FS) Sodium 138 Potassium 4.8 Chloride 97 L Carbon Dioxide 35 H Anion Gap 7 L BUN 22.9 H Creatinine 1.3 Est GFR (CKD-EPI)AfAm 67.78 Est GFR (CKD-EPI)NonAf 58.48 Random Glucose 167 H Calcium 9.4 Phosphorus 4.5 Magnesium 2.0 Total Bilirubin 0.7 AST 19 ALT 35 Alkaline Phosphatase 73 Troponin I Total Protein 6.6 Albumin 3.5 Triglycerides Cholesterol Total LDL Cholesterol HDL Cholesterol Lipase Blood Type Antibody Screen 04/08/19 04/08/19 06:28 06:28 WBC RBC Hgb Hct MCV MCH MCHC RDW Plt Count MPV Absolute Neuts (auto) Neutrophils % Neutrophils % (Manual) Band Neutrophils % Lymphocytes % Lymphocytes % (Manual) Monocytes % Monocytes % (Manual) Eosinophils % Eosinophils % (Manual) Basophils % Basophils % (Manual) Myelocytes % (Man) Promyelocytes % (Man) Blast Cells % (Manual) Nucleated RBC % Metamyelocytes Hypochromia Toxic Granulation Platelet Estimate Platelet Comment Polychromasia Poikilocytosis Anisocytosis Microcytosis Macrocytosis Tear Drop Cells PT with INR INR PTT (Actin FS) 70.4 H Sodium Potassium Chloride Carbon Dioxide Anion Gap BUN Creatinine Est GFR (CKD-EPI)AfAm Est GFR (CKD-EPI)NonAf Random Glucose Calcium Phosphorus Magnesium Total Bilirubin AST ALT Alkaline Phosphatase Troponin I Total Protein Albumin Triglycerides 56 Cholesterol 196 Total LDL Cholesterol 97 HDL Cholesterol 76 H Lipase Blood Type Antibody Screen Active Medications Generic Name Dose Route Start Last Admin Trade Name Freq PRN Reason Stop Dose Admin Albuterol Sulfate 1 amp 04/08/19 04:32 Ventolin 0.083% Nebulizer Soln - NEB RTID PRN SHORT OF BREATH/WHEEZING Albuterol/Ipratropium 1 amp 04/07/19 20:27 04/08/19 13:56 Duoneb - NEB 1 amp RQ4H BEAU Administration Atorvastatin Calcium 10 mg 04/08/19 22:00 Lipitor - PO HS BEAU Bupropion HCl 150 mg 04/08/19 14:12 Wellbutrin - PO 04/08/19 14:13 ONCE ONE Diltiazem HCl 180 mg 04/08/19 10:00 Cardizem Cd - PO DAILY BEAU Gabapentin 600 mg 04/07/19 22:00 04/08/19 10:21 Neurontin - PO Not Given BID BEAU Heparin Sodium (Porcine) 1,000 unit 04/07/19 18:17 Heparin - IVPUSH PRN PRN Heparin Heparin Sodium (Porcine) 5,000 unit 04/07/19 18:17 Heparin - IVPUSH PRN PRN Heparin Dextrose/Sodium Chloride 1,000 mls @ 100 mls/hr 04/07/19 15:30 04/07/19 18:13 D5-1/2ns - IV 100 mls/hr ASDIR BEAU Administration Heparin Sodium/Dextrose 25,000 units in 500 mls @ 20 mls/hr 04/07/19 18:30 22:10 Heparin Infusion - IVPB 1,000 units/hr TITR BEAU 20 mls/hr Administration Protocol 1,000 UNITS/HR Methylprednisolone Sodium Succinate 40 mg 04/07/19 19:00 04/08/19 10:21 Solu-Medrol - IVPUSH 40 mg Q8H-IV BEAU Administration Pantoprazole Sodium 40 mg 04/07/19 22:00 04/08/19 10:21 Protonix Iv IVPUSH 40 mg BID BEAU Administration Sodium Chloride 2 spray 04/08/19 11:11 [place] Nasal [place] - NS TID PRN NASAL CONGESTION A/P Polycythemia, secondary? Atrial fibrillation COPD exacerbation smoker Abdominal pain Obstructive Sleep [place] Fatty infiltration of Liver polypoid cystic lesion of the bladder Secondary polycythemia due to COPD/RAINER BAseline hct 54 % per patient IS being followed by Dr. Wiley GOAL hCT IN SECONDARY Polycythemia is to keep it close to baseline. If Hct approaches close to 60 will need phlebotomy Will monitor
--- NOTE | 2019-04-09 08:39 | PN ---
Teaching Attending Note Name of Resident: Ernesto Bennett ATTENDING PHYSICIAN STATEMENT I saw and evaluated the patient. I reviewed the resident's note and discussed the case with the resident. I agree with the resident's findings and plan as documented. SUBJECTIVE: Patient on oxygen with labored breathing. OBJECTIVE: Vital Signs Temperature 97.6 F 04/09/19 06:00 Pulse Rate 115 H 04/09/19 06:00 Respiratory Rate 20 04/09/19 06:00 Blood Pressure 109/76 04/09/19 06:00 O2 Sat by Pulse Oximetry (%) 90 L 04/08/19 21:00 GENERAL: The patient is awake, alert, and fully oriented, in no acute distress. HEAD: Normal with no signs of trauma. EYES: PERRL, extraocular movements intact, sclera anicteric, conjunctiva clear. ENT: Ears normal, oropharynx clear without exudates, moist mucous membranes. NECK: Trachea midline, full range of motion, supple. LUNGS: decreased Breath sounds BL, + wheezing bl, no crackles, no accessory muscle use. HEART: irregularly-irregular ,S1, S2 without murmur, rub or gallop. ABDOMEN: Soft, NT,ND, normoactive bowel sounds, no guarding, no rebound, no hepatosplenomegaly, no masses. EXTREMITIES: 2+ pulses, warm, well-perfused, no edema. NEUROLOGICAL: Cranial nerves II through XII grossly intact. Normal speech, gait not observed. PSYCH: Normal mood, normal affect. SKIN: Warm, dry, normal turgor, no rashes or lesions noted CBCD WBC 10.1 K/mm3 (4.0-10.0) H 04/09/19 05:20 RBC 5.87 M/mm3 (4.00-5.60) H 04/09/19 05:20 Hgb 17.5 GM/dL (11.7-16.9) H 04/09/19 05:20 Hct 52.7 % (35.4-49) H 04/09/19 05:20 MCV 89.8 fl (80-96) 04/09/19 05:20 MCHC 33.1 g/dl (32.0-35.9) 04/09/19 05:20 RDW 14.6 % (11.9-15.9) 04/09/19 05:20 Plt Count 203 K/MM3 (134-434) 04/09/19 05:20 MPV 7.4 fl (7.5-11.1) L 04/09/19 05:20 CMP Sodium 138 mmol/L (136-145) 04/08/19 06:28 Potassium 4.8 mmol/L (3.5-5.1) 04/08/19 06:28 Chloride 97 mmol/L (98-107) L 04/08/19 06:28 Carbon Dioxide 35 mmol/L (21-32) H 04/08/19 06:28 Anion Gap 7 MMOL/L (8-16) L 04/08/19 06:28 BUN 22.9 mg/dL (7-18) H 04/08/19 06:28 Creatinine 1.3 mg/dL (0.55-1.3) 04/08/19 06:28 Random Glucose 167 mg/dL (74-106) H 04/08/19 06:28 Calcium 9.4 mg/dL (8.5-10.1) 04/08/19 06:28 Total Bilirubin 0.7 mg/dL (0.2-1) 04/08/19 06:28 AST 19 U/L (15-37) 04/08/19 06:28 ALT 35 U/L (13-61) 04/08/19 06:28 Alkaline Phosphatase 73 U/L (45-117) 04/08/19 06:28 Total Protein 6.6 g/dl (6.4-8.2) 04/08/19 06:28 Albumin 3.5 g/dl (3.4-5.0) 04/08/19 06:28 CARDIAC ENZYMES Troponin I < 0.02 ng/ml (0.00-0.05) 04/07/19 12:20 Home Medications Medication Instructions Recorded Albuterol 2.5/Ipratropium 0.5 1 neb NEB Q4H 04/07/19 [Duoneb -] Albuterol Sulfate [Proair Hfa] 8.5 gm IH DAILY 04/07/19 Diltiazem HCl [Diltiazem 24Hr Cd] 180 mg PO HS 04/07/19 Gabapentin 600 mg PO BID 04/07/19 Rivaroxaban [Xarelto -] 20 mg PO DAILY 04/07/19 Tiotropium Br/Olodaterol HCl 2.5 mcg IH DAILY 04/07/19 [Stiolto Respimat Inhal [place]] Diltiazem HCl [Diltiazem ER] 120 mg PO HS 04/08/19 Current Medications Generic Name Dose Route Start Last Admin Trade Name Freq PRN Reason Stop Dose Admin Albuterol Sulfate 1 amp 04/08/19 04:32 04/09/19 06:25 Ventolin 0.083% Nebulizer Soln - NEB 1 amp RTID PRN Administration SHORT OF BREATH/WHEEZING Albuterol/Ipratropium 1 amp 04/07/19 20:27 04/09/19 04:15 Duoneb - NEB Not Given RQ4H BEAU Atorvastatin Calcium 10 mg 04/08/19 22:00 04/08/19 21:18 Lipitor - PO 10 mg HS BEAU Administration Bupropion HCl 150 mg 04/08/19 19:00 04/08/19 21:18 Wellbutrin Xl - PO 04/10/19 10:01 150 mg DAILY BEAU Administration Bupropion HCl 300 mg 04/11/19 10:00 Wellbutrin Xl - PO DAILY [facility]AU Diltiazem HCl 180 mg 04/08/19 10:00 Cardizem Cd - PO DAILY [facility]AU Gabapentin 600 mg 04/07/19 22:00 04/08/19 21:18 Neurontin - PO Not Given BID [facility] Heparin Sodium (Porcine) 1,000 unit 04/07/19 18:17 Heparin - IVPUSH PRN PRN Heparin Heparin Sodium (Porcine) 5,000 unit 04/07/19 18:17 Heparin - IVPUSH PRN PRN Heparin Dextrose/Sodium Chloride 1,000 mls @ 100 mls/hr 04/07/19 15:30 04/09/19 07:41 D5-1/2ns - IV Not Given ASDIR BEAU Heparin Sodium/Dextrose 25,000 units in 500 mls @ 20 mls/hr 04/07/19 18:30 07:41 Heparin Infusion - IVPB 1,000 units/hr TITR BEAU 20 mls/hr Administration Protocol 1,000 UNITS/HR Sodium Chloride 1,000 mls @ 42 mls/hr 04/08/19 23:45 04/09/19 07:41 Normal Saline - IV 42 mls/hr ASDIR BEAU Administration Methylprednisolone Sodium Succinate 40 mg 04/07/19 19:00 04/09/19 02:45 Solu-Medrol - IVPUSH 40 mg Q8H-IV [facility] Administration Pantoprazole Sodium 40 mg 04/07/19 22:00 04/08/19 21:17 Protonix Iv IVPUSH 40 mg BID BEAU Administration Sodium Chloride 2 spray 04/08/19 11:11 04/08/19 21:00 [place] Nasal [place] - NS 2 spray TID PRN Administration NASAL CONGESTION CT abdomen and pelvis:mild to moderate enlargement of prostate, with 1x0.5cm urinary bladde polypoid lesion along the posterolateral aspect of the urinary bladder. ASSESSMENT AND PLAN: Pt. is a 63 y.o. F w/ PMHx. of Afib (on Xarelto), COPD (not on home O2 by choice ), Polycythemia vera ( last phlebotomy 2 years ago), RLS, Anxiety and Arthritis presents for abdominal pain that has been worsening over the last 2 weeks. #ACUTE COPD EXACERBATION : continue nebulizers, and steroids, pulmonary on the case, not cleared for any procedure yet. #Abdominal Pain :Abd. US negative for gall stones, shows fatty liver, 1.3 cm R. hepatic cyst, pancreatic duct 2mm. #aFIB XARELTO ON HOLD, on HEPARIN NOW, CARDIZEM CONTINUE # Polycythemia : ON OXYGEN 2 LITER , O2 to keep Spo2 >90% #Afib ON HEPARIN drip now, HOLD XARELTO #Obstructive Sleep Apnea, CPAP at night #Anxiety DISORDER #Unintentional Weight Loss/Failure to Thrive #Smoker: smoking cessation discuss dvT PX: HEPARIN DRIP PER PULMONARY : TO defer elective invasive procedures at this time until acute exacerbation improves
[2019-04-09 08:47] LABS: ALBUMIN 3.2 g/dl (3.4-5.0); BILIRUBIN,TOTAL 0.4 mg/dL (0.2-1); BLOOD UREA NITROGEN 27.9 mg/dL (7-18); CALCIUM 8.9 mg/dL (8.5-10.1); CREATININE 1.3 mg/dL (0.55-1.3); POTASSIUM 4.6 mmol/L (3.5-5.1)
[2019-04-09 09:15] LABS: N-TERMINAL BNP 257.12 pg/ml (5-125)
--- NOTE | 2019-04-09 10:50 | ECHO ---
Name: DOTTIE JOAQUIN Exam:Adult Echocardiogram Study Date: 04/09/2019 10:05 AM Age: 63 yrs Reason For Study: SOB, COPD, CHF Height: 67 in Weight: 225 lb BSA: 2.1 m2 MMode/2D Measurements & Calculations IVSd: 1.0 cm Ao root diam: 3.4 cm LVIDd: 4.9 cm LA dimension: 4.0 cm LVIDs: 3.7 cm ACS: 1.7 cm LVPWd: 0.92 cm EDV(Teich): 110.3 ml LVOT diam: 2.0 cm ESV(Teich): 58.3 ml LVLd ap4: 8.6 cm SV(MOD-sp4): 50.0 ml EDV(MOD-sp4): 111.0 ml LVLs ap4: 7.7 cm ESV(MOD-sp4): 61.0 ml LAV (MOD-bp): 74.0 ml TAPSE: 1.9 cm RV S Geoff: 12.0 cm/sec Doppler Measurements & Calculations MV E max geoff: 94.3 cm/sec Ao V2 max: 154.7 cm/sec MV dec time: 0.22 sec Ao max P.6 mmHg Ao V2 mean: 97.3 cm/sec Ao mean P.6 mmHg Ao V2 VTI: 26.4 cm ABDELRAHMAN(I,D): 2.0 cm2 ABDELRAHMAN(V,D): 2.0 cm2 LV V1 max P.7 mmHg MR max geoff: 414.6 cm/sec LV V1 mean P.8 mmHg MR max P.8 mmHg LV V1 max: 95.8 cm/sec LV V1 mean: 60.8 cm/sec LV V1 VTI: 16.9 cm SV(LVOT): 53.5 ml TR max geoff: 217.2 cm/sec TR max P.9 mmHg PA V2 max: 80.1 cm/sec Med Peak E' Geoff: 9.3 cm/sec PA max P.6 mmHg Med E/e': 10.2 Lat Peak E' Geoff: 16.8 cm/sec Lat E/e': 5.6 Procedure The study was technically difficult with many images being suboptimal in quality. Left Ventricle Left ventricular systolic function is mildly reduced. Ejection Fraction = 45-50%. Septal motion is co nsistent with conduction abnormality. Right Ventricle The right ventricle is borderline dilated. The right ventricular systolic function is grossly normal. Atria The left atrium is mildly dilated. Right atrial size is normal. Mitral Valve The mitral valve is grossly normal. There is no mitral valve stenosis. There is mild mitral regurgita tion. Tricuspid Valve The tricuspid valve is not well visualized, but is grossly normal. There is mild tricuspid regurgitat ion. Aortic Valve There is mild aortic sclerosis.;. No hemodynamically significant valvular aortic stenosis. No aortic regurgitation is present. Pulmonic Valve The pulmonic valve is not well seen, but is grossly normal. There is no pulmonic valvular stenosis. T here is no pulmonic valvular regurgitation. Great Vessels The aortic root is normal size. Pericardium/Pleura There is no pericardial effusion. Interpretation Summary The study was technically difficult with many images being suboptimal in quality. Septal motion is consistent with conduction abnormality. Left ventricular systolic function is mildly reduced. Ejection Fraction = 45-50%. The left atrium is mildly dilated. There is mild mitral regurgitation. There is mild tricuspid regurgitation. There is mild aortic sclerosis.; There is no pericardial effusion. MD Parisi *Timbo 04/09/2019 10:49 AM
[2019-04-09] MEDS: PANTOPRAZOLE SODIUM 40 MG VIAL IVPUSH SCH ×2 (11:00→22:25)
[2019-04-09] MEDS: GABAPENTIN 300 MG CAPSULE PO SCH ×2 (11:13→22:24)
--- NOTE | 2019-04-09 13:41 | PN ---
Physical Exam: SUBJECTIVE: Patient seen and examined at bedside in cardiology. Overnight pt noted to be tachycardic; peak 126. He is s/p UGIS. He states this went well, w/ o concern. He says his breathing is much improved, he has no abdominal pain and is mainly concerned about his medications. OBJECTIVE: Vital Signs Temp Pulse Resp BP Pulse Ox 98.5 F 72 18 131/75 99 04/09/19 16:13 04/09/19 16:13 04/09/19 16:13 04/09/19 16:13 04/09/19 16:13 GENERAL: AOx3, in no acute distress. HEAD: NCAT EYES: ISAI, EOMI, conjunctiva clear. ENT: Ears normal, nares patent, oropharynx clear without exudates. Moist mucous membranes. NECK: Normal range of motion, supple without lymphadenopathy, JVD, or masses. LUNGS: CTAB. End expiratory wheezes BL, and no crackles. No accessory muscle use. HEART: RRR s1 s2 ABDOMEN: Soft, BS present in all 4 quadrants, non-distended, no JVD, MUSCULOSKELETAL: No bony deformities or tenderness. No CVA tenderness. UPPER EXTREMITIES: 2+ pulses, warm, well-perfused. No cyanosis. No clubbing. No peripheral edema. LOWER EXTREMITIES: 2+ pulses, warm, well-perfused. No calf tenderness. No peripheral edema. NEUROLOGICAL: No focal deficits. Cranial nerves II-XII intact. Normal speech. Gait not appreciated. PSYCHIATRIC: Cooperative. Good eye contact. Appropriate mood and affect. SKIN: Warm, dry, normal turgor, no rashes or lesions noted, normal capillary refill. Laboratory Results - last 24 hr 04/08/19 04/08/19 04/08/19 06:28 06:28 15:50 WBC RBC Hgb Hct MCV MCH MCHC RDW Plt Count MPV PTT (Actin FS) Sodium 138 Potassium 4.8 Chloride 97 L Carbon Dioxide 35 H Anion Gap 7 L BUN 22.9 H Creatinine 1.3 Est GFR (CKD-EPI)AfAm 67.78 Est GFR (CKD-EPI)NonAf 58.48 Random Glucose 167 H Calcium 9.4 Phosphorus 4.5 Magnesium 2.0 Total Bilirubin 0.7 AST 19 ALT 35 Alkaline Phosphatase 73 Creatine Kinase 110 Troponin I < 0.02 B-Natriuretic Peptide Total Protein 6.6 Albumin 3.5 Triglycerides 56 Cholesterol 196 Total LDL Cholesterol 97 HDL Cholesterol 76 H TSH Cancelled Influenza A (Rapid) Negative Influenza B (Rapid) Negative 04/09/19 04/09/19 04/09/19 05:20 05:20 05:20 WBC 10.1 H RBC 5.87 H Hgb 17.5 H Hct 52.7 H MCV 89.8 MCH 29.7 MCHC 33.1 RDW 14.6 Plt Count 203 MPV 7.4 L PTT (Actin FS) 158.3 H Sodium 139 Potassium 4.6 Chloride 102 Carbon Dioxide 27 Anion Gap 11 BUN 27.9 H Creatinine 1.3 Est GFR (CKD-EPI)AfAm 67.78 Est GFR (CKD-EPI)NonAf 58.48 Random Glucose 162 H Calcium 8.9 Phosphorus Magnesium Total Bilirubin 0.4 AST 23 ALT 40 Alkaline Phosphatase 63 Creatine Kinase Troponin I B-Natriuretic Peptide 257.12 H Total Protein 6.0 L Albumin 3.2 L Triglycerides Cholesterol Total LDL Cholesterol HDL Cholesterol TSH 0.70 Influenza A (Rapid) Influenza B (Rapid) Active Medications Albuterol Sulfate (Ventolin 0.083% Nebulizer Soln -) 1 amp NEB RTID PRN PRN Reason: SHORT OF BREATH/WHEEZING Last Admin: 04/09/19 06:25 Dose: 1 amp Albuterol/Ipratropium (Duoneb -) 1 amp NEB RQ4H [facility] Last Admin: 04/09/19 16:11 Dose: 1 amp Atorvastatin Calcium (Lipitor -) 10 mg PO HS [facility] Last Admin: 04/08/19 21:18 Dose: 10 mg Bupropion HCl (Wellbutrin Xl -) 150 mg PO DAILY [facility] Stop: 04/10/19 10:01 Last Admin: 04/09/19 11:49 Dose: 150 mg Bupropion HCl (Wellbutrin Xl -) 300 mg PO DAILY [facility] Diltiazem HCl 180 mg/ (Diltiazem HCl 120 mg) 300 mg PO DAILY [facility] Gabapentin (Neurontin -) 600 mg PO BID [facility] Last Admin: 04/09/19 11:13 Dose: Not Given Heparin Sodium (Porcine) (Heparin -) 1,000 unit IVPUSH PRN PRN PRN Reason: Heparin Heparin Sodium (Porcine) (Heparin -) 5,000 unit IVPUSH PRN PRN PRN Reason: Heparin Dextrose/Sodium Chloride (D5-1/2ns -) 1,000 mls @ 100 mls/hr IV ASDIR PATIENCE Last Admin: 04/09/19 15:42 Dose: Not Given Heparin Sodium/Dextrose (Heparin Infusion -) 25,000 units in 500 mls @ 20 mls/ hr IVPB TITR PATI[facility]; Protocol Last Admin: 04/09/19 07:41 Dose: 1,000 units/hr, 20 mls/hr Methylprednisolone Sodium Succinate (Solu-Medrol -) 40 mg IVPUSH Q8H-IV [facility] Last Admin: 04/09/19 11:00 Dose: 40 mg Pantoprazole Sodium (Protonix Iv) 40 mg IVPUSH BID [facility] Last Admin: 04/09/19 11:00 Dose: 40 mg Sodium Chloride ([place] Nasal [place] -) 2 spray NS TID PRN PRN Reason: NASAL CONGESTION Last Admin: 04/08/19 21:00 Dose: 2 spray ASSESSMENT/PLAN: 63 y/o male PMH COPD, RAINER, polycythemia vera, RLS, anxiety, arthritis, and afib came in c/o abdominal pain that has resolved on its own. Primary concern has been his a-fib. He has been taking # A-fib - Tachycardia but no RVR - Cont. home regimen 300 mg diltiazem qd - Was on heparin ggt # COPD - Duonebs patience, albuterol prn, solumedrol - Pulm consulted for pre-procedure eval and pt will need to be stabilized first before endoscopy. - Consider pre/post to determine need for home 02. Pt reports he had need for home 02 in the past and does not want to use this treatment because it is uncomfortable. Pt was educated on the need and is amenable to home o2 if in the form of a more portable device. 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 Light - Heme/onc consulted - Patient likely has secondary polycythemia d/t comorbid COPD, smoking, and RAINER. If secondary polycythemia: goal is <55-60 due to compensatory efforts to maintain RBC's. If KALINA II mutation: HCT goal is to <45 through either hydroxyurea v. therapeutic phlebotomy. # RAINER - CPAP HS # F/E/N - PO - Cont. to monitor - Regular diet # DVT prophylaxis - On Xarelto # Disposition - Telemetry Ernesto C. Lildharrie, MD Visit type - Emergency Visit Emergency Visit: No - New Patient This patient is new to me today: No - Critical Care Critical Care patient: No ATTENDING PHYSICIAN STATEMENT I saw and evaluated the patient. I reviewed the resident's note and discussed the case with the resident. I agree with the resident's findings and plan as documented. SUBJECTIVE: OBJECTIVE: ASSESSMENT AND PLAN:
--- NOTE | 2019-04-09 13:46 | PN ---
Progress Note (short form) - Note Progress Note: Breathing feels slightly better today. Still with wheezing. No acute events overnight. Intake & Output 04/06/19 04/07/19 04/08/19 04/09/19 23:59 23:59 23:59 23:59 Intake Total 240 Balance 240 Weight 225 lb Last Vital Signs Temp Pulse Resp BP Pulse Ox 97.6 F 126 H 23 H 147/50 L 90 L 04/09/19 13:35 04/09/19 13:35 04/09/19 13:35 04/09/19 13:35 04/08/19 21:00 Active Medications Albuterol Sulfate (Ventolin 0.083% Nebulizer Soln -) 1 amp NEB RTID PRN PRN Reason: SHORT OF BREATH/WHEEZING Last Admin: 04/09/19 06:25 Dose: 1 amp Albuterol/Ipratropium (Duoneb -) 1 amp NEB RQ4H [facility] Last Admin: 04/09/19 12:21 Dose: 1 amp Atorvastatin Calcium (Lipitor -) 10 mg PO HS [facility] Last Admin: 04/08/19 21:18 Dose: 10 mg Bupropion HCl (Wellbutrin Xl -) 150 mg PO DAILY [facility] Stop: 04/10/19 10:01 Last Admin: 04/09/19 11:49 Dose: 150 mg Bupropion HCl (Wellbutrin Xl -) 300 mg PO DAILY [facility] Diltiazem HCl 180 mg/ (Diltiazem HCl 120 mg) 300 mg PO DAILY [facility] Gabapentin (Neurontin -) 600 mg PO BID [facility] Last Admin: 04/09/19 11:13 Dose: Not Given Heparin Sodium (Porcine) (Heparin -) 1,000 unit IVPUSH PRN PRN PRN Reason: Heparin Heparin Sodium (Porcine) (Heparin -) 5,000 unit IVPUSH PRN PRN PRN Reason: Heparin Dextrose/Sodium Chloride (D5-1/2ns -) 1,000 mls @ 100 mls/hr IV ASDIR [facility]AU Last Admin: 04/09/19 07:41 Dose: Not Given Heparin Sodium/Dextrose (Heparin Infusion -) 25,000 units in 500 mls @ 20 mls/ hr IVPB TITR BEAU; Protocol Last Admin: 04/09/19 07:41 Dose: 1,000 units/hr, 20 mls/hr Methylprednisolone Sodium Succinate (Solu-Medrol -) 40 mg IVPUSH Q8H-IV [facility] Last Admin: 04/09/19 11:00 Dose: 40 mg Pantoprazole Sodium (Protonix Iv) 40 mg IVPUSH BID [facility] Last Admin: 04/09/19 11:00 Dose: 40 mg Sodium Chloride ([place] Nasal [place] -) 2 spray NS TID PRN PRN Reason: NASAL CONGESTION Last Admin: 04/08/19 21:00 Dose: 2 spray Constitutional: Yes: Awake and alert, NAD Eyes: Yes: EOM Intact HENT: Yes: Atraumatic, Normocephalic Neck: Yes: Supple, Trachea Midline Cardiovascular: Yes: Pulse Irregular Respiratory: Yes: Bilateral rhonchi and expiratory wheezes ...Clubbing: No Gastrointestinal: Yes: Normal Bowel Sounds, Soft. No: Tenderness Edema: No Neurological: Yes: Alert, Oriented Labs: Laboratory Results - last 24 hr 04/08/19 04/08/19 04/08/19 06:28 06:28 15:50 WBC RBC Hgb Hct MCV MCH MCHC RDW Plt Count MPV PTT (Actin FS) Sodium 138 Potassium 4.8 Chloride 97 L Carbon Dioxide 35 H Anion Gap 7 L BUN 22.9 H Creatinine 1.3 Est GFR (CKD-EPI)AfAm 67.78 Est GFR (CKD-EPI)NonAf 58.48 Random Glucose 167 H Calcium 9.4 Phosphorus 4.5 Magnesium 2.0 Total Bilirubin 0.7 AST 19 ALT 35 Alkaline Phosphatase 73 Creatine Kinase 110 Troponin I < 0.02 B-Natriuretic Peptide Total Protein 6.6 Albumin 3.5 Triglycerides 56 Cholesterol 196 Total LDL Cholesterol 97 HDL Cholesterol 76 H TSH Cancelled Influenza A (Rapid) Negative Influenza B (Rapid) Negative 04/09/19 04/09/19 04/09/19 05:20 05:20 05:20 WBC 10.1 H RBC 5.87 H Hgb 17.5 H Hct 52.7 H MCV 89.8 MCH 29.7 MCHC 33.1 RDW 14.6 Plt Count 203 MPV 7.4 L PTT (Actin FS) 158.3 H Sodium 139 Potassium 4.6 Chloride 102 Carbon Dioxide 27 Anion Gap 11 BUN 27.9 H Creatinine 1.3 Est GFR (CKD-EPI)AfAm 67.78 Est GFR (CKD-EPI)NonAf 58.48 Random Glucose 162 H Calcium 8.9 Phosphorus Magnesium Total Bilirubin 0.4 AST 23 ALT 40 Alkaline Phosphatase 63 Creatine Kinase Troponin I B-Natriuretic Peptide 257.12 H Total Protein 6.0 L Albumin 3.2 L Triglycerides Cholesterol Total LDL Cholesterol HDL Cholesterol TSH 0.70 Influenza A (Rapid) Influenza B (Rapid) Assessment/Plan Acute COPD Exacerbation Obstructive Sleep Apnea Anxiety Atrial Fibrillation Unintentional Weight Loss/Failure to Thrive Smoker - IV medrol - inhaled bronchodilators standing and PRN - O2 to keep Spo2 >90% - CPAP at night - rate control - continue anticoagulation - smoking cessation discussed - defer elective invasive procedures at this time until acute exacerbation improves Dr Velazquez
--- NOTE | 2019-04-09 14:56 | EKG ---
Test Reason : Blood Pressure : / mmHG Vent. Rate : 120 BPM Atrial Rate : 127 BPM P-R Int : 000 ms QRS Dur : 108 ms QT Int : 314 ms P-R-T Axes : 000 113 032 degrees QTc Int : 443 ms ATRIAL FIBRILLATION WITH RAPID VENTRICULAR RESPONSE WITH PREMATURE VENTRICULAR OR ABERRANTLY CONDUCTED COMPLEXES RIGHT AXIS DEVIATION POSSIBLE ANTERIOR INFARCT , AGE UNDETERMINED ABNORMAL ECG WHEN COMPARED WITH ECG OF 08-APR-2019 04:56, NO SIGNIFICANT CHANGE WAS FOUND Confirmed by BAKARI VIVAS MD ([id number]) on 04/09/2019 2:55:45 PM Referred By: Confirmed By:BAKARI VIVAS MD
--- NOTE | 2019-04-09 17:36 | PN.GI ---
GI Progress Note Subjective: GI NOte ( covering Dr Henry): UGI series reveals no pathology. Pain has resolved. Tolerating solid diet - Objective Vital Signs: Vital Signs Temperature 98.5 F 04/09/19 16:13 Pulse Rate 72 04/09/19 16:13 Respiratory Rate 18 04/09/19 16:13 Blood Pressure 131/75 04/09/19 16:13 O2 Sat by Pulse Oximetry (%) 99 04/09/19 16:13 Laboratory Tests 04/07/19 04/09/19 04/09/19 12:20 05:20 05:20 WBC 11.0 H 10.1 H Total Bilirubin 0.4 AST 23 ALT 40 Alkaline Phosphatase 63 Constitutional: Anxious ...Auscultate: Yes: Normoactive Bowel Sounds ...Palpate: Yes: Soft, Other (nontender) Labs: CBC, BMP 04/09/19 05:20 04/09/19 05:20 INR, PTT INR 0.99 (0.83-1.09) 04/08/19 06:28 Assessment/Plan Impression: - Resolved abdominal pain of undetermined etiology Plan: -- Agree with need for EGD if/when cardiopulmonary status permits Dr Henry will return 04/12/19. Dr Frazier will be covering until then Problem List - Problems (1) Abdominal pain Code(s): R10.9 - UNSPECIFIED ABDOMINAL PAIN Qualifiers: Abdominal location: upper abdomen, unspecified Qualified Code(s): R10.10 - Upper abdominal pain, unspecified (2) Atrial fibrillation with rapid ventricular response Code(s): I48.91 - UNSPECIFIED ATRIAL FIBRILLATION (3) COPD exacerbation Code(s): J44.1 - CHRONIC OBSTRUCTIVE PULMONARY DISEASE W (ACUTE) EXACERBATION (4) Polycythemia rubra vera Code(s): D45 - POLYCYTHEMIA VERA
[2019-04-09 18:32] VITALS: BMI 32.0
[2019-04-09] MEDS: RIVAROXABAN 20 MG TABLET PO SCH (18:38)
[2019-04-09 21:37] LABS: INR 1.29 (0.83-1.09); PROTHROMBIN TIME (PATIENT) 15.3 SEC (9.7-13.0)
[2019-04-09 21:39] LABS: ACTIVATED PTT 56.9 SECONDS (25.2-36.5)
[2019-04-09] MEDS: ATORVASTATIN CA 10 MG TABLET (FP) PO SCH ×2 (22:00→22:25)
[2019-04-09] MEDS: MELATONIN 5 MG TABLETS PO PRN (23:01)
[2019-04-10] MEDS: methylPREDNISolone NA SUCC 40 MG/1 ML VIAL IVPUSH SCH ×3 (02:09→17:27)
--- NOTE | 2019-04-10 03:37 | PN ---
Progress Note, Physician Chief Complaint: Pt A&Ox3; OOB in chair; less SOB; bouts of abdominal discomfort are less frequent. Awaits ECHO. History of Present Illness: The patient is a 63 year old white man, with a significant PMH of Afib (on diltiazem and Xarelto), COPD (denies asthma; tolerated beta blockers for AF in the past; per , pt refuses to use prescribed home O2),, polycythemia vera ( last phlebotomy was 2 years ago), RAINER/RLS (on CPAP), and anxiety/depression/ panic, who presents to the ED for evaluation of abdominal pain for 2 weeks. Patient complains of diffuse upper abdominal pain, which has been chronic over the past two years but has become progressively worse over the past two weeks. He notes the pain is onset typically ~20-30 minutes after eating, and lasts for ~2 hours. His pain is exacerbated with eating solid foods, specifically meats. Patient notes he has been unable to sleep secondary to the pain. He additionally states that his food goes down slower than normal, and his bowel movements are smaller than typical. He denies any current abdominal pain while in the ED, but notes he was experiencing it a few hours ago after he ate breakfast. Planned now for EGD. Pt does report chronic shortness of breath, chest tightness and wheezing. Reports an unintentional weight loss of 20lbs over the past month. He uses Stiolto and albuterol at home. He started smoking at age 17, smoked as much as 2 PPD and still currently smokes. He was placed on prednisone about 2 weeks ago with improvement in dyspnea. Never been on steroids prior to that. Denies hx seizures. patient additionally complains of bilateral LE edema for the past 2 days. Pt says he had a coronary angiogram about 7 yrs ago at [facility]: nonobstructive disease, but "something in the lower part was not right". He has had severeal stress tests since, the latest about a year ago. [facility] [place]. On rivaroxaban 20 mg daily; had an episode of bleeding years ago, but not since. PMD: Dr. Ball Cardio: Dr. Cast ([place]) Pulm: - Current Medication List Current Medications: Active Medications Albuterol Sulfate (Ventolin 0.083% Nebulizer Soln -) 1 amp NEB RTID PRN PRN Reason: SHORT OF BREATH/WHEEZING Last Admin: 04/09/19 06:25 Dose: 1 amp Albuterol/Ipratropium (Duoneb -) 1 amp NEB RQ4H [facility] Last Admin: 04/10/19 00:00 Dose: 1 amp Atorvastatin Calcium (Lipitor -) 10 mg PO HS [facility] Last Admin: 04/09/19 22:00 Dose: Not Given Bupropion HCl (Wellbutrin Xl -) 150 mg PO DAILY [facility] Stop: 04/10/19 10:01 Last Admin: 04/09/19 11:49 Dose: 150 mg Bupropion HCl (Wellbutrin Xl -) 300 mg PO DAILY [facility] Diltiazem HCl 180 mg/ (Diltiazem HCl 120 mg) 300 mg PO DAILY [facility] Docusate Sodium (Colace -) 100 mg PO DAILY [facility] Gabapentin (Neurontin -) 600 mg PO BID [facility] Last Admin: 04/09/19 22:24 Dose: 600 mg Dextrose/Sodium Chloride (D5-1/2ns -) 1,000 mls @ 100 mls/hr IV ASDIR [facility] Last Admin: 04/09/19 15:42 Dose: Not Given Melatonin (Melatonin) 5 mg PO HS PRN PRN Reason: INSOMNIA Last Admin: 04/09/19 23:01 Dose: 5 mg Methylprednisolone Sodium Succinate (Solu-Medrol -) 40 mg IVPUSH Q8H-IV [facility] Last Admin: 04/10/19 02:09 Dose: 40 mg Pantoprazole Sodium (Protonix Iv) 40 mg IVPUSH BID [facility] Last Admin: 04/09/19 22:25 Dose: 40 mg Rivaroxaban (Xarelto) 20 mg PO DAILY [facility] Last Admin: 04/09/19 18:38 Dose: 20 mg Sodium Chloride ([place] Nasal [place] -) 2 spray NS TID PRN PRN Reason: NASAL CONGESTION Last Admin: 04/08/19 21:00 Dose: 2 spray - Objective Vital Signs: Vital Signs Temperature 98.1 F 04/10/19 02:16 Pulse Rate 91 H 04/10/19 02:16 Respiratory Rate 20 04/10/19 02:16 Blood Pressure 108/58 L 04/10/19 02:16 O2 Sat by Pulse Oximetry (%) 86 L 04/09/19 21:00 Constitutional: Yes: Anxious, Mild Distress Eyes: Yes: WNL HENT: Yes: WNL Neck: Yes: WNL Cardiovascular: Yes: S1 (varies in intensity), S2 Respiratory: Yes: Diminished, SOB Gastrointestinal: Yes: Soft. No: Tenderness ...Rectal Exam: Yes: Deferred Genitourinary: No: Anuria Breast(s): Yes: WNL Musculoskeletal: Yes: Muscle Weakness Extremities: Yes: Cool Edema: Yes Edema: LLE: Trace, RLE: Trace Peripheral Pulses WNL: Yes Integumentary: Yes: Pressure Ulcer Psychiatric: Yes: Alert, Oriented Labs: CBC, BMP 04/09/19 05:20 04/09/19 05:20 INR, PTT INR 1.29 (0.83-1.09) H 04/09/19 19:50 - ....Imaging Chest X-ray: Image Reviewed EKG: Image Reviewed Problem List - Problems (1) COPD exacerbation Assessment/Plan: Poor air entry; Diffuse wheezes; SOB ELECTRICAL INSTALLATION INSPECTOR: flattened diaphgram; COPD; no acute infiltrate influenza: rapid study negative. Bronchodilators, O2, steroids per test engineer nuclear equipment Code(s): J44.1 - CHRONIC OBSTRUCTIVE PULMONARY DISEASE W (ACUTE) EXACERBATION (2) Ventral hernia Code(s): K43.9 - VENTRAL HERNIA WITHOUT OBSTRUCTION OR GANGRENE (3) Anxiety and depression Assessment/Plan: Now on Wellbutrin for anxiety and as aid to stop smoking. Code(s): F41.9 - ANXIETY DISORDER, UNSPECIFIED; F32.9 - MAJOR DEPRESSIVE DISORDER, SINGLE EPISODE, UNSPECIFIED (4) Smokes cigarettes Assessment/Plan: Pt was on nicotine patch, but kept removing it and smoking. Smokes a pack a day or more again. Agrees to try Wellbutrin (for anxiety/derpression and cigarettes; denies hx seizures). Code(s): F17.210 - NICOTINE DEPENDENCE, CIGARETTES, UNCOMPLICATED (5) CHF (congestive heart failure) Assessment/Plan: BNP 257 CXR: COPD; no acute infiltrate No JVD F/u BUN/Cr, electrolytes, daily weight, Is and Os. Code(s): I50.9 - HEART FAILURE, UNSPECIFIED (6) [place] cardiac risk >20% in next 10 years Code(s): Z91.89 - OTH PERSONAL RISK FACTORS, NOT ELSEWHERE CLASSIFIED (7) Abdominal pain Assessment/Plan: f/u with Software Test Automation Engineer Pt is in marked respiratory distress; would not do elective procedures until this has been stabilized. [place] rivaroxaban unless emergent procedure to be done. Code(s): R10.9 - UNSPECIFIED ABDOMINAL PAIN Qualifiers: Abdominal location: upper abdomen, unspecified Qualified Code(s): R10.10 - Upper abdominal pain, unspecified (8) Hypoxia Code(s): R09.02 - HYPOXEMIA (9) Polycythemia rubra vera Code(s): D45 - POLYCYTHEMIA VERA (10) Atrial fibrillation with rapid ventricular response Assessment/Plan: Continue diltiazem for HR control (?did not receive dose yesterday). F/u EKG; telemetry. Rivaroxaban held for possible abdominal procedure (though any elective procedure should be held until COPD is more stable and cardiac assessment completed); on IV heparin until rivaroxaban restarted. ECHO for LVEF, chamber sizes, wall motion, valve status. F/u prior cardiac workup of coronary arteries (hx coronary angiogram; stress tests). Code(s): I48.91 - UNSPECIFIED ATRIAL FIBRILLATION (11) Hyperlipidemia Assessment/Plan: Start statin, and keep LDL < 70 mg/dL. Code(s): E78.5 - HYPERLIPIDEMIA, UNSPECIFIED
[2019-04-10] MEDS: ALBUTEROL SO4 2.5/IPRATROPIUM 0.5 INH SOL 3 ML VIAL.NEB. NEB SCH ×6 (04:00→20:57)
[2019-04-10 07:50] LABS: HEMATOCRIT 50.7 % (35.4-49); HEMOGLOBIN 16.5 GM/dL (11.7-16.9); MCHC 32.5 g/dl (32.0-35.9); MEAN CELL VOLUME 89.5 fl (80-96); MEAN PLT VOLUME 7.8 fl (7.5-11.1); PLATELET COUNT 179 K/MM3 (134-434); RBC 5.67 M/mm3 (4.00-5.60); WHITE BLOOD COUNT 11.6 K/mm3 (4.0-10.0)
[2019-04-10 08:13] LABS: ALBUMIN 3.2 g/dl (3.4-5.0); BILIRUBIN,TOTAL 0.6 mg/dL (0.2-1); BLOOD UREA NITROGEN 31.9 mg/dL (7-18); CALCIUM 9.1 mg/dL (8.5-10.1); CREATININE 1.2 mg/dL (0.55-1.3); POTASSIUM 4.3 mmol/L (3.5-5.1); TOT PROT 5.8 g/dl (6.4-8.2)
[2019-04-10] MEDS: DOCUSATE SODIUM 100 MG CAPSULE (FP) PO SCH (09:18)
[2019-04-10] MEDS: DILTIAZEM CD 180 MG, DILTIAZEM CD 120 MG PO SCH (09:18)
[2019-04-10] MEDS: PANTOPRAZOLE SODIUM 40 MG VIAL IVPUSH SCH ×2 (09:19→21:41)
[2019-04-10] MEDS: GABAPENTIN 300 MG CAPSULE PO SCH ×2 (09:19→21:41)
[2019-04-10] MEDS: RIVAROXABAN 20 MG TABLET PO SCH (09:19)
--- NOTE | 2019-04-10 09:23 | PN ---
Progress Note, Physician History of Present Illness: The patient is a 63 year old white man, with a significant PMH of Afib (on diltiazem and Xarelto), COPD (denies asthma; tolerated beta blockers for AF in the past; per , pt refuses to use prescribed home O2),, polycythemia vera ( last phlebotomy was 2 years ago), RAINER/RLS (on CPAP), and anxiety/depression/ panic, who presents to the ED for evaluation of abdominal pain for 2 weeks. Patient complains of diffuse upper abdominal pain, which has been chronic over the past two years but has become progressively worse over the past two weeks. He notes the pain is onset typically ~20-30 minutes after eating, and lasts for ~2 hours. His pain is exacerbated with eating solid foods, specifically meats. Patient notes he has been unable to sleep secondary to the pain. He additionally states that his food goes down slower than normal, and his bowel movements are smaller than typical. He denies any current abdominal pain while in the ED, but notes he was experiencing it a few hours ago after he ate breakfast. Planned now for EGD. Pt does report chronic shortness of breath, chest tightness and wheezing. Reports an unintentional weight loss of 20lbs over the past month. He uses Stiolto and albuterol at home. He started smoking at age 17, smoked as much as 2 PPD and still currently smokes. He was placed on prednisone about 2 weeks ago with improvement in dyspnea. Never been on steroids prior to that. Denies hx seizures. patient additionally complains of bilateral LE edema for the past 2 days. Pt says [facility]: nonobstructive disease, but "something in the lower part was not right". He has had severeal stress tests since, the latest about a year ago. Attends pum[facility]ary clinic at [place]. On rivaroxaban 20 mg daily; had an episode of bleeding years ago, but not since. PMD: Dr. Ball Cardio: Dr. Cast ([place]) - Current Medication List Current Medications: Active Medications Albuterol Sulfate (Ventolin 0.083% Nebulizer Soln -) 1 amp NEB RTID PRN PRN Reason: SHORT OF BREATH/WHEEZING Last Admin: 04/09/19 06:25 Dose: 1 amp Albuterol/Ipratropium (Duoneb -) 1 amp NEB RQ4H [facility] Last Admin: 04/10/19 07:40 Dose: 1 amp Atorvastatin Calcium (Lipitor -) 10 mg PO HS [facility] Last Admin: 04/09/19 22:00 Dose: Not Given Bupropion HCl (Wellbutrin Xl -) 150 mg PO DAILY [facility] Stop: 04/10/19 10:01 Last Admin: 04/09/19 11:49 Dose: 150 mg Bupropion HCl (Wellbutrin Xl -) 300 mg PO DAILY [facility] Diltiazem HCl 180 mg/ (Diltiazem HCl 120 mg) 300 mg PO DAILY [facility] Docusate Sodium (Colace -) 100 mg PO DAILY [facility] Gabapentin (Neurontin -) 600 mg PO BID [facility] Last Admin: 04/09/19 22:24 Dose: 600 mg Dextrose/Sodium Chloride (D5-1/2ns -) 1,000 mls @ 100 mls/hr IV ASDIR [facility] Last Admin: 04/09/19 15:42 Dose: Not Given Melatonin (Melatonin) 5 mg PO HS PRN PRN Reason: INSOMNIA Last Admin: 04/09/19 23:01 Dose: 5 mg Methylprednisolone Sodium Succinate (Solu-Medrol -) 40 mg IVPUSH Q8H-IV [facility] Last Admin: 04/10/19 02:09 Dose: 40 mg Pantoprazole Sodium (Protonix Iv) 40 mg IVPUSH BID [facility] Last Admin: 04/09/19 22:25 Dose: 40 mg Rivaroxaban (Xarelto) 20 mg PO DAILY [facility] Last Admin: 04/09/19 18:38 Dose: 20 mg Sodium Chloride ([place] Nasal [place] -) 2 spray NS TID PRN PRN Reason: NASAL CONGESTION Last Admin: 04/08/19 21:00 Dose: 2 spray - Objective Vital Signs: Vital Signs Temperature 97.6 F 04/10/19 09:18 Pulse Rate 105 H 04/10/19 09:18 Respiratory Rate 20 04/10/19 09:18 Blood Pressure 110/63 04/10/19 09:18 O2 Sat by Pulse Oximetry (%) 86 L 04/09/19 21:00 Eyes: Yes: WNL, Conjunctiva Clear, EOM Intact HENT: Yes: WNL, Atraumatic, Normocephalic Neck: Yes: WNL, Supple, Trachea Midline Cardiovascular: Yes: Pulse Irregular, S1, S2 Respiratory: Yes: Diminished Gastrointestinal: Yes: WNL, Normal Bowel Sounds Genitourinary: Yes: WNL Musculoskeletal: Yes: WNL Extremities: Yes: WNL Edema: No Integumentary: Yes: WNL Neurological: Yes: WNL, Alert, Oriented ...Motor Strength: WNL Psychiatric: Yes: WNL Labs: CBC, BMP 04/10/19 06:20 04/10/19 06:20 INR, PTT INR 1.29 (0.83-1.09) H 04/09/19 19:50 Assessment/Plan - Problems (1) COPD exacerbation Assessment/Plan: Bronchodilators, O2, steroids per supervisor pleating Code(s): J44.1 - CHRONIC OBSTRUCTIVE PULMONARY DISEASE W (ACUTE) EXACERBATION (2) Ventral hernia Code(s): K43.9 - VENTRAL HERNIA WITHOUT OBSTRUCTION OR GANGRENE (3) Anxiety and depression Assessment/Plan: Now on Wellbutrin for anxiety and as aid to stop smoking. Code(s): F41.9 - ANXIETY DISORDER, UNSPECIFIED; F32.9 - MAJOR DEPRESSIVE DISORDER, SINGLE EPISODE, UNSPECIFIED (4) Smokes cigarettes Assessment/Plan: Pt was on nicotine patch, but kept removing it and smoking. Smokes a pack a day or more again. Agrees to try Wellbutrin (for anxiety/derpression and cigarettes; denies hx seizures). Code(s): F17.210 - NICOTINE DEPENDENCE, CIGARETTES, UNCOMPLICATED (5) CHF (congestive heart failure) Assessment/Plan: BNP 257 CXR: COPD; no acute infiltrate No JVD F/u BUN/Cr, electrolytes, daily weight, Is and Os. Code(s): I50.9 - HEART FAILURE, UNSPECIFIED (6) [place] cardiac risk >20% in next 10 years Code(s): Z91.89 - OTH PERSONAL RISK FACTORS, NOT ELSEWHERE CLASSIFIED (7) Abdominal pain Assessment/Plan: f/u with Senior Account Manager Pt is in marked respiratory distress; would not do elective procedures until this has been stabilized. rivaroxaban restarted Code(s): R10.9 - UNSPECIFIED ABDOMINAL PAIN Qualifiers: Abdominal location: upper abdomen, unspecified Qualified Code(s): R10.10 - Upper abdominal pain, unspecified (8) Hypoxia Code(s): R09.02 - HYPOXEMIA (9) Polycythemia rubra vera Code(s): D45 - POLYCYTHEMIA VERA (10) Atrial fibrillation with rapid ventricular response Assessment/Plan: Continue diltiazem for HR control F/u EKG; telemetry. ECHO - mildly reduced EF 45-50% TDS F/u prior cardiac workup of coronary arteries (hx coronary angiogram; stress tests). If no recent ischemic w/u , will need MIBI stress test. Code(s): I48.91 - UNSPECIFIED ATRIAL FIBRILLATION (11) Hyperlipidemia Assessment/Plan: Start statin, and keep LDL < 70 mg/dL. Code(s): E78.5 - HYPERLIPIDEMIA, UNSPECIFIED
--- NOTE | 2019-04-10 12:33 | PN ---
Progress Note (short form) - Note Progress Note: Family is at bedside, patient is feeling better. Vital Signs Temperature 97.6 F 04/10/19 09:18 Pulse Rate 105 H 04/10/19 09:18 Respiratory Rate 20 04/10/19 09:18 Blood Pressure 110/63 04/10/19 09:18 O2 Sat by Pulse Oximetry (%) 86 L 04/09/19 21:00 GENERAL: The patient is awake, alert, and fully oriented, in no acute distress. HEAD: Normal with no signs of trauma. EYES: PERRL, extraocular movements intact, sclera anicteric, conjunctiva clear. ENT: Ears normal, oropharynx clear without exudates, moist mucous membranes. NECK: Trachea midline, full range of motion, supple. LUNGS: decreased Breath sounds BL, + wheezing bl, no crackles, no accessory muscle use. HEART: irregularly -irregular ,S1, S2 without murmur, rub or gallop. ABDOMEN: Soft, nontender, nondistended, normoactive bowel sounds, no guarding, no rebound, no hepatosplenomegaly, no masses. EXTREMITIES: 2+ pulses, warm, well-perfused, no edema. NEUROLOGICAL: Cranial nerves II through XII grossly intact. Normal speech, gait not observed. PSYCH: Normal mood, normal affect. SKIN: Warm, dry, normal turgor, no rashes or lesions noted CBCD WBC 11.6 K/mm3 (4.0-10.0) H 04/10/19 06:20 RBC 5.67 M/mm3 (4.00-5.60) H 04/10/19 06:20 Hgb 16.5 GM/dL (11.7-16.9) 04/10/19 06:20 Hct 50.7 % (35.4-49) H 04/10/19 06:20 MCV 89.5 fl (80-96) 04/10/19 06:20 MCHC 32.5 g/dl (32.0-35.9) 04/10/19 06:20 RDW 15.0 % (11.9-15.9) 04/10/19 06:20 Plt Count 179 K/MM3 (134-434) 04/10/19 06:20 MPV 7.8 fl (7.5-11.1) 02/01/20 06:20 CMP Sodium 138 mmol/L (136-145) 04/10/19 06:20 Potassium 4.3 mmol/L (3.5-5.1) 04/10/19 06:20 Chloride 100 mmol/L (98-107) 04/10/19 06:20 Carbon Dioxide 32 mmol/L (21-32) 04/10/19 06:20 Anion Gap 6 MMOL/L (8-16) L 04/10/19 06:20 BUN 31.9 mg/dL (7-18) H 04/10/19 06:20 Creatinine 1.2 mg/dL (0.55-1.3) 04/10/19 06:20 Random Glucose 155 mg/dL (74-106) H 04/10/19 06:20 Calcium 9.1 mg/dL (8.5-10.1) 04/10/19 06:20 Total Bilirubin 0.6 mg/dL (0.2-1) 04/10/19 06:20 AST 24 U/L (15-37) 04/10/19 06:20 ALT 49 U/L (13-61) 04/10/19 06:20 Alkaline Phosphatase 57 U/L (45-117) 04/10/19 06:20 Total Protein 5.8 g/dl (6.4-8.2) L 04/10/19 06:20 Albumin 3.2 g/dl (3.4-5.0) L 04/10/19 06:20 CARDIAC ENZYMES Creatine Kinase 110 U/L (26-308) 04/08/19 06:28 Troponin I < 0.02 ng/ml (0.00-0.05) 04/08/19 06:28 Home Medications Medication Instructions Recorded Albuterol 2.5/Ipratropium 0.5 1 neb NEB Q4H 04/07/19 [Duoneb -] Albuterol Sulfate [Proair Hfa] 8.5 gm IH DAILY 04/07/19 Diltiazem HCl [Diltiazem 24Hr Cd] 180 mg PO HS 04/07/19 Gabapentin 600 mg PO BID 04/07/19 Rivaroxaban [Xarelto -] 20 mg PO DAILY 04/07/19 Tiotropium Br/Olodaterol HCl 2.5 mcg IH DAILY 04/07/19 [Stiolto Respimat Inhal [place]] Diltiazem HCl [Diltiazem ER] 120 mg PO HS 04/08/19 Current Medications Generic Name Dose Route Start Last Admin Trade Name Freq PRN Reason Stop Dose Admin Albuterol Sulfate 1 amp 04/08/19 04:32 04/09/19 06:25 Ventolin 0.083% Nebulizer Soln - NEB 1 amp RTID PRN Administration SHORT OF BREATH/WHEEZING Albuterol/Ipratropium 1 amp 04/07/19 20:27 04/10/19 12:11 Duoneb - NEB Not Given RQ4H [facility] Atorvastatin Calcium 10 mg 04/08/19 22:00 04/09/19 22:00 Lipitor - PO Not Given HS [facility] Bupropion HCl 300 mg 04/11/19 10:00 Wellbutrin Xl - PO DAILY [facility] Diltiazem HCl 180 mg/ 300 mg 04/10/19 10:00 04/10/19 09:18 Diltiazem HCl 120 mg PO 300 mg DAILY [facility] Administration Docusate Sodium 100 mg 04/10/19 10:00 04/10/19 09:18 Colace - PO 100 mg DAILY [facility] Administration Gabapentin 600 mg 04/07/19 22:00 04/10/19 09:19 Neurontin - PO 600 mg BID [facility] Administration Dextrose/Sodium Chloride 1,000 mls @ 100 mls/hr 04/07/19 15:30 04/09/19 15:42 D5-1/2ns - IV Not Given ASDIR [facility] Melatonin 5 mg 04/09/19 22:00 04/09/19 23:01 Melatonin PO 5 mg HS PRN Administration INSOMNIA Methylprednisolone Sodium Succinate 40 mg 04/07/19 19:00 04/10/19 09:19 Solu-Medrol - IVPUSH 40 mg Q8H-IV [facility] Administration Pantoprazole Sodium 40 mg 04/07/19 22:00 04/10/19 09:19 Protonix Iv IVPUSH 40 mg BID [facility] Administration Rivaroxaban 20 mg 04/09/19 17:30 04/10/19 09:19 Xarelto PO 20 mg DAILY [facility] Administration Sodium Chloride 2 spray 04/08/19 11:11 04/08/19 21:00 [place] Nasal [place] - NS 2 spray TID PRN Administration NASAL CONGESTION CT abdomen and pelvis:mild to moderate enlargement of prostate, with 1x0.5cm urinary bladde polypoid lesion along the posterolateral aspect of the urinary bladder. ASSESSMENT AND PLAN: Pt. is a 63 y.o. F w/ PMHx. of Afib (on Xarelto), COPD (not on home O2 by choice ), Polycythemia vera ( last phlebotomy 2 years ago), RLS, Anxiety and Arthritis presents for abdominal pain that has been worsening over the last 2 weeks. #ACUTE COPD EXACERBATION : continue nebulizers, on IV steroids, pulmonory appreciated , not cleared for any procedure yet. #Abdominal Pain resolved :Abd. US negative for gall stones, shows fatty liver, 1.3 cm R. hepatic cyst, pancreatic duct 2mm. #aFIB with RVR continue XARELTO , continue CARDIZEM # Polycythemia : ON OXYGEN 2 LITER , O2 to keep Spo2 >90% #Obstructive Sleep Apnea, CPAP at night, continue oxygen #Anxiety DISORDER continue home meds. #Unintentional Weight Loss/Failure to Thrive; further w/u as an outpatient once stable #Smoker: smoking cessation discuss dvT PX: xarelto PER PULMONARY : TO defer elective invasive procedures at this time until acute exacerbation improves Visit type - Emergency Visit Emergency Visit: Yes ED Registration Date: 04/07/19 Care time: The patient presented to the Emergency Department on the above date and was hospitalized for further evaluation of their emergent condition. - New Patient This patient is new to me today: No - Critical Care Critical Care patient: No - Discharge Referral Referred to [facility] No
--- NOTE | 2019-04-10 15:12 | PN ---
Progress Note (short form) - Note Progress Note: PULMONARY Breathing better. Saturating 90% on nasal cannula. Less cough and wheezing. Vital Signs Period Temp Pulse Resp BP Sys/Delaney Pulse Ox Last 24 Hr 97.6 F-98.5 F 72-113 18-20 108-133/58-75 86-99 Gen: less tachypneic Heart: RRR Lung: distant breath sounds Abd: soft, nontender Ext: no edema CBC, BMP 04/10/19 06:20 04/10/19 06:20 Active Medications Albuterol Sulfate (Ventolin 0.083% Nebulizer Soln -) 1 amp NEB RTID PRN PRN Reason: SHORT OF BREATH/WHEEZING Last Admin: 04/09/19 06:25 Dose: 1 amp Albuterol/Ipratropium (Duoneb -) 1 amp NEB RQ4H [facility] Last Admin: 04/10/19 12:11 Dose: Not Given Atorvastatin Calcium (Lipitor -) 10 mg PO HS [facility] Last Admin: 04/09/19 22:00 Dose: Not Given Bupropion HCl (Wellbutrin Xl -) 300 mg PO DAILY [facility] Diltiazem HCl 180 mg/ (Diltiazem HCl 120 mg) 300 mg PO DAILY [facility] Last Admin: 04/10/19 09:18 Dose: 300 mg Docusate Sodium (Colace -) 100 mg PO DAILY [facility] Last Admin: 04/10/19 09:18 Dose: 100 mg Gabapentin (Neurontin -) 600 mg PO BID [facility] Last Admin: 04/10/19 09:19 Dose: 600 mg Dextrose/Sodium Chloride (D5-1/2ns -) 1,000 mls @ 100 mls/hr IV ASDIR [facility] Last Admin: 04/09/19 15:42 Dose: Not Given Melatonin (Melatonin) 5 mg PO HS PRN PRN Reason: INSOMNIA Last Admin: 04/09/19 23:01 Dose: 5 mg Methylprednisolone Sodium Succinate (Solu-Medrol -) 40 mg IVPUSH Q8H-IV [facility] Last Admin: 04/10/19 09:19 Dose: 40 mg Pantoprazole Sodium (Protonix Iv) 40 mg IVPUSH BID [facility] Last Admin: 04/10/19 09:19 Dose: 40 mg Rivaroxaban (Xarelto) 20 mg PO DAILY [facility] Last Admin: 04/10/19 09:19 Dose: 20 mg Sodium Chloride ([place] Nasal [place] -) 2 spray NS TID PRN PRN Reason: NASAL CONGESTION Last Admin: 04/08/19 21:00 Dose: 2 spray A/P Acute COPD Exacerbation Obstructive Sleep Apnea Anxiety Atrial Fibrillation Unintentional Weight Loss/Failure to Thrive Smoker - continue medrol at current dose - inhaled bronchodilators standing and PRN - O2 to keep Spo2 >90% - CPAP at night - rate control - continue anticoagulation - smoking cessation discussed - would defer elective invasive procedures at this time until acute exacerbation improves
[2019-04-10] MEDS: DEXTROSE 5%-0.45% SALINE 1,000 ML IV SCH (17:26)
[2019-04-10] MEDS: ATORVASTATIN CA 10 MG TABLET (FP) PO SCH (21:41)
[2019-04-10] MEDS: MELATONIN 5 MG TABLETS PO PRN (21:42)
[2019-04-11] MEDS: methylPREDNISolone NA SUCC 40 MG/1 ML VIAL IVPUSH SCH ×3 (02:15→21:51)
[2019-04-11] MEDS: ALBUTEROL SO4 0.083% IH SOL 2.5 MG/3 ML VIAL.NEB. NEB PRN (03:22)
[2019-04-11 06:22] LABS: HEMATOCRIT 50.6 % (35.4-49); HEMOGLOBIN 16.6 GM/dL (11.7-16.9); MCH 29.6 pg (25.7-33.7); MCHC 32.9 g/dl (32.0-35.9); MEAN CELL VOLUME 89.9 fl (80-96); MEAN PLT VOLUME 7.6 fl (7.5-11.1); PLATELET COUNT 154 K/MM3 (134-434); RBC 5.62 M/mm3 (4.00-5.60); RDW 14.9 % (11.9-15.9); WHITE BLOOD COUNT 10.5 K/mm3 (4.0-10.0)
[2019-04-11] MEDS: ALBUTEROL SO4 2.5/IPRATROPIUM 0.5 INH SOL 3 ML VIAL.NEB. NEB SCH ×4 (08:55→20:56)
--- NOTE | 2019-04-11 09:16 | PN ---
Progress Note, Physician History of Present Illness: The patient is a 63 year old white man, with a significant PMH of Afib (on diltiazem and Xarelto), COPD (denies asthma; tolerated beta blockers for AF in the past; per , pt refuses to use prescribed home O2),, polycythemia vera ( last phlebotomy was 2 years ago), RAINER/RLS (on CPAP), and anxiety/depression/ panic, who presents to the ED for evaluation of abdominal pain for 2 weeks. Patient complains of diffuse upper abdominal pain, which has been chronic over the past two years but has become progressively worse over the past two weeks. He notes the pain is onset typically ~20-30 minutes after eating, and lasts for ~2 hours. His pain is exacerbated with eating solid foods, specifically meats. Patient notes he has been unable to sleep secondary to the pain. He additionally states that his food goes down slower than normal, and his bowel movements are smaller than typical. He denies any current abdominal pain while in the ED, but notes he was experiencing it a few hours ago after he ate breakfast. Planned now for EGD. Pt does report chronic shortness of breath, chest tightness and wheezing. Reports an unintentional weight loss of 20lbs over the past month. He uses Stiolto and albuterol at home. He started smoking at age 17, smoked as much as 2 PPD and still currently smokes. He was placed on prednisone about 2 weeks ago with improvement in dyspnea. Never been on steroids prior to that. Denies hx seizures. patient additionally complains of bilateral LE edema for the past 2 days. Pt says [facility] nonobstructive disease, but "something in the lower part was not right". He has had severeal stress tests since, the latest about a year ago. [facility] [place]. On rivaroxaban 20 mg daily; had an episode of bleeding years ago, but not since. PMD: Dr. Ball Cardio: Dr. Cast ([place]) - Current Medication List Current Medications: Active Medications Albuterol Sulfate (Ventolin 0.083% Nebulizer Soln -) 1 amp NEB Q4H PRN PRN Reason: SHORT OF BREATH/WHEEZING Last Admin: 02/02/20 03:22 Dose: 1 amp Albuterol/Ipratropium (Duoneb -) 1 amp NEB RQID [facility] Last Admin: 04/11/19 08:55 Dose: 1 amp Atorvastatin Calcium (Lipitor -) 10 mg PO HS [facility] Last Admin: 04/10/19 21:41 Dose: Not Given Bupropion HCl (Wellbutrin Xl -) 300 mg PO DAILY [facility] Diltiazem HCl 180 mg/ (Diltiazem HCl 120 mg) 300 mg PO DAILY [facility] Last Admin: 04/10/19 09:18 Dose: 300 mg Docusate Sodium (Colace -) 100 mg PO DAILY [facility] Last Admin: 04/10/19 09:18 Dose: 100 mg Gabapentin (Neurontin -) 600 mg PO BID [facility] Last Admin: 04/10/19 21:41 Dose: 600 mg Dextrose/Sodium Chloride (D5-1/2ns -) 1,000 mls @ 100 mls/hr IV ASDIR [facility] Last Admin: 04/10/19 17:26 Dose: Not Given Melatonin (Melatonin) 5 mg PO HS PRN PRN Reason: INSOMNIA Last Admin: 04/10/19 21:42 Dose: 5 mg Methylprednisolone Sodium Succinate (Solu-Medrol -) 40 mg IVPUSH Q8H-IV [facility] Last Admin: 04/11/19 02:15 Dose: 40 mg Pantoprazole Sodium (Protonix Iv) 40 mg IVPUSH BID [facility] Last Admin: 04/10/19 21:41 Dose: 40 mg Rivaroxaban (Xarelto) 20 mg PO DAILY [facility] Last Admin: 04/10/19 09:19 Dose: 20 mg Sodium Chloride ([place] Nasal [place] -) 2 spray NS TID PRN PRN Reason: NASAL CONGESTION Last Admin: 04/08/19 21:00 Dose: 2 spray - Objective Vital Signs: Vital Signs Temperature 97.4 F L 04/11/19 06:08 Pulse Rate 98 H 04/11/19 06:08 Respiratory Rate 24 H 04/11/19 06:08 Blood Pressure 114/58 L 04/11/19 06:08 O2 Sat by Pulse Oximetry (%) 90 L 04/10/19 21:00 Eyes: Yes: WNL, Conjunctiva Clear, EOM Intact HENT: Yes: WNL, Atraumatic, Normocephalic Neck: Yes: WNL, Supple, Trachea Midline Cardiovascular: Yes: WNL, Regular Rate and Rhythm Respiratory: Yes: WNL, Regular, CTA Bilaterally Gastrointestinal: Yes: WNL, Normal Bowel Sounds Genitourinary: Yes: WNL Musculoskeletal: Yes: WNL Extremities: Yes: WNL Edema: No Integumentary: Yes: WNL Neurological: Yes: WNL, Alert, Oriented ...Motor Strength: WNL Psychiatric: Yes: WNL Labs: CBC, BMP 04/11/19 05:40 04/10/19 06:20 INR, PTT INR 1.29 (0.83-1.09) H 04/09/19 19:50 Assessment/Plan - Problems (1) COPD exacerbation Assessment/Plan: Bronchodilators, O2, steroids per salesforce administrator Code(s): J44.1 - CHRONIC OBSTRUCTIVE PULMONARY DISEASE W (ACUTE) EXACERBATION (2) Ventral hernia Code(s): K43.9 - VENTRAL HERNIA WITHOUT OBSTRUCTION OR GANGRENE (3) Anxiety and depression Assessment/Plan: Now on Wellbutrin for anxiety and as aid to stop smoking. Code(s): F41.9 - ANXIETY DISORDER, UNSPECIFIED; F32.9 - MAJOR DEPRESSIVE DISORDER, SINGLE EPISODE, UNSPECIFIED (4) Smokes cigarettes Assessment/Plan: Pt was on nicotine patch, but kept removing it and smoking. Smokes a pack a day or more again. Agrees to try Wellbutrin (for anxiety/derpression and cigarettes; denies hx seizures). Code(s): F17.210 - NICOTINE DEPENDENCE, CIGARETTES, UNCOMPLICATED (5) CHF (congestive heart failure) Assessment/Plan: BNP 257 CXR: COPD; no acute infiltrate No JVD F/u BUN/Cr, electrolytes, daily weight, Is and Os. Code(s): I50.9 - HEART FAILURE, UNSPECIFIED (6) [place] cardiac risk >20% in next 10 years Code(s): Z91.89 - OTH PERSONAL RISK FACTORS, NOT ELSEWHERE CLASSIFIED (7) Abdominal pain Assessment/Plan: f/u with Actuarial Trainee Pt is in marked respiratory distress; would not do elective procedures until this has been stabilized. rivaroxaban restarted Code(s): R10.9 - UNSPECIFIED ABDOMINAL PAIN Qualifiers: Abdominal location: upper abdomen, unspecified Qualified Code(s): R10.10 - Upper abdominal pain, unspecified (8) Hypoxia Code(s): R09.02 - HYPOXEMIA (9) Polycythemia rubra vera Code(s): D45 - POLYCYTHEMIA VERA (10) Atrial fibrillation with rapid ventricular response Assessment/Plan: Continue diltiazem for HR control F/u EKG; telemetry. ECHO - mildly reduced EF 45-50% TDS F/u prior cardiac workup of coronary arteries (hx coronary angiogram; stress tests). If no recent ischemic w/u , will need MIBI stress test. Code(s): I48.91 - UNSPECIFIED ATRIAL FIBRILLATION (11) Hyperlipidemia Assessment/Plan: Start statin, and keep LDL < 70 mg/dL. Code(s): E78.5 - HYPERLIPIDEMIA, UNSPECIFIED
[2019-04-11] MEDS: GABAPENTIN 300 MG CAPSULE PO SCH (09:56)
[2019-04-11] MEDS: RIVAROXABAN 20 MG TABLET PO SCH (09:56)
[2019-04-11] MEDS: DOCUSATE SODIUM 100 MG CAPSULE (FP) PO SCH (09:56)
[2019-04-11] MEDS: DILTIAZEM CD 180 MG, DILTIAZEM CD 120 MG PO SCH (09:57)
[2019-04-11] MEDS: PANTOPRAZOLE SODIUM 40 MG VIAL IVPUSH SCH ×2 (10:02→21:51)
--- NOTE | 2019-04-11 13:36 | PN ---
Progress Note (short form) - Note Progress Note: PULMONARY Breathing better. Saturating high 80s to 90% on nasal cannula. Less cough and wheezing. Vital Signs Period Temp Pulse Resp BP Sys/Delaney Pulse Ox Last 24 Hr 97.4 F-98.6 F 94-116 19-24 108-128/58-72 90-90 Gen: less tachypneic Heart: RRR Lung: distant breath sounds Abd: soft, nontender Ext: no edema CBC, BMP 04/11/19 05:40 04/10/19 06:20 Active Medications Albuterol Sulfate (Ventolin 0.083% Nebulizer Soln -) 1 amp NEB Q4H PRN PRN Reason: SHORT OF BREATH/WHEEZING Last Admin: 04/11/19 03:22 Dose: 1 amp Albuterol/Ipratropium (Duoneb -) 1 amp NEB RQID [facility] Last Admin: 04/11/19 08:55 Dose: 1 amp Atorvastatin Calcium (Lipitor -) 10 mg PO HS [facility] Last Admin: 04/10/19 21:41 Dose: Not Given Bupropion HCl (Wellbutrin Xl -) 300 mg PO DAILY [facility] Last Admin: 04/11/19 10:02 Dose: 300 mg Diltiazem HCl 180 mg/ (Diltiazem HCl 120 mg) 300 mg PO DAILY [facility] Last Admin: 04/11/19 09:57 Dose: 300 mg Docusate Sodium (Colace -) 100 mg PO DAILY [facility] Last Admin: 04/11/19 09:56 Dose: 100 mg Gabapentin (Neurontin -) 600 mg PO DAILY [facility] Dextrose/Sodium Chloride (D5-1/2ns -) 1,000 mls @ 100 mls/hr IV ASDIR [facility] Last Admin: 04/10/19 17:26 Dose: Not Given Melatonin (Melatonin) 5 mg PO HS PRN PRN Reason: INSOMNIA Last Admin: 04/10/19 21:42 Dose: 5 mg Methylprednisolone Sodium Succinate (Solu-Medrol -) 40 mg IVPUSH Q8H-IV [facility] Last Admin: 04/11/19 10:02 Dose: 40 mg Pantoprazole Sodium (Protonix Iv) 40 mg IVPUSH BID [facility] Last Admin: 04/11/19 10:02 Dose: 40 mg Polyethylene Glycol (Miralax (For Daily Use) -) 17 gm PO BID [facility] Rivaroxaban (Xarelto) 20 mg PO DAILY [facility] Last Admin: 04/11/19 09:56 Dose: 20 mg Sodium Chloride ([place] Nasal [place] -) 2 spray NS TID PRN PRN Reason: NASAL CONGESTION Last Admin: 04/08/19 21:00 Dose: 2 spray A/P Acute COPD Exacerbation Obstructive Sleep Apnea Anxiety Atrial Fibrillation Unintentional Weight Loss/Failure to Thrive Smoker - can change steroids to q12h - inhaled bronchodilators standing and PRN - O2 to keep Spo2 >90% - CPAP at night - rate control - continue anticoagulation - smoking cessation discussed - would defer elective invasive procedures at this time until acute exacerbation improves
--- NOTE | 2019-04-11 14:50 | PN ---
Physical Exam: SUBJECTIVE: Patient seen and examined at bedside. No acute events overnight. This am he offers no new complaints. He states his breathing is slowly improving. OBJECTIVE: Vital Signs Temp Pulse Resp BP Pulse Ox 98.9 F 119 H 22 H 128/75 90 L 04/11/19 13:59 04/11/19 13:59 04/11/19 13:59 04/11/19 13:59 04/11/19 10:00 GENERAL: AOx3, in no acute distress. HEAD: NCAT EYES: ISAI, EOMI, conjunctiva clear. ENT: Ears normal, nares patent, oropharynx clear without exudates. Moist mucous membranes. NECK: Normal range of motion, supple without lymphadenopathy, JVD, or masses. LUNGS: CTAB. End expiratory wheezes BL, and no crackles. No accessory muscle use. Saturating at 92% on humidified 4L NC. HEART: RRR s1 s2 ABDOMEN: Soft, BS present in all 4 quadrants, non-distended, no JVD, MUSCULOSKELETAL: No bony deformities or tenderness. No CVA tenderness. UPPER EXTREMITIES: 2+ pulses, warm, well-perfused. No cyanosis. No clubbing. No peripheral edema. LOWER EXTREMITIES: 2+ pulses, warm, well-perfused. No calf tenderness. No peripheral edema. NEUROLOGICAL: No focal deficits. Cranial nerves II-XII intact. Normal speech. Gait not appreciated. PSYCHIATRIC: Cooperative. Good eye contact. Appropriate mood and affect. SKIN: Warm, dry, normal turgor, no rashes or lesions noted, normal capillary refill. Laboratory Results - last 24 hr 04/11/19 04/11/19 05:40 05:40 WBC 10.5 H RBC 5.62 H Hgb 16.6 Hct 50.6 H MCV 89.9 MCH 29.6 MCHC 32.9 RDW 14.9 Plt Count 154 MPV 7.6 PTT (Actin FS) 75.2 H Active Medications Albuterol Sulfate (Ventolin 0.083% Nebulizer Soln -) 1 amp NEB Q4H PRN PRN Reason: SHORT OF BREATH/WHEEZING Last Admin: 04/11/19 03:22 Dose: 1 amp Albuterol/Ipratropium (Duoneb -) 1 amp NEB RQID [facility] Last Admin: 04/11/19 15:54 Dose: 1 amp Atorvastatin Calcium (Lipitor -) 10 mg PO HS [facility] Last Admin: 04/10/19 21:41 Dose: Not Given Bupropion HCl (Wellbutrin Xl -) 300 mg PO DAILY [facility] Last Admin: 04/11/19 10:02 Dose: 300 mg Diltiazem HCl 180 mg/ (Diltiazem HCl 120 mg) 300 mg PO DAILY [facility] Last Admin: 04/11/19 09:57 Dose: 300 mg Docusate Sodium (Colace -) 100 mg PO DAILY [facility] Last Admin: 04/11/19 09:56 Dose: 100 mg Gabapentin (Neurontin -) 600 mg PO DAILY [facility] Dextrose/Sodium Chloride (D5-1/2ns -) 1,000 mls @ 100 mls/hr IV ASDIR [facility] Last Admin: 04/10/19 17:26 Dose: Not Given Melatonin (Melatonin) 5 mg PO HS PRN PRN Reason: INSOMNIA Last Admin: 04/10/19 21:42 Dose: 5 mg Methylprednisolone Sodium Succinate (Solu-Medrol -) 40 mg IVPUSH BID [facility] Pantoprazole Sodium (Protonix Iv) 40 mg IVPUSH BID [facility] Last Admin: 04/11/19 10:02 Dose: 40 mg Polyethylene Glycol (Miralax (For Daily Use) -) 17 gm PO BID [facility] Last Admin: 04/11/19 15:57 Dose: 17 gm Rivaroxaban (Xarelto) 20 mg PO DAILY [facility] Last Admin: 04/11/19 09:56 Dose: 20 mg Sodium Chloride ([place] Nasal [place] -) 2 spray NS TID PRN PRN Reason: NASAL CONGESTION Last Admin: 04/08/19 21:00 Dose: 2 spray ASSESSMENT/PLAN: 63 y/o male PMH COPD, RAINER, polycythemia vera, RLS, anxiety, arthritis, and afib came in c/o abdominal pain that has resolved on its own. Primary concern has been his a-fib. # A-fib - Tachycardia but no RVR - Cont. home regimen 300 mg diltiazem qd # COPD - Solumedrol 40 mg iv BID now - Duonebs [facility], albuterol prn - Pulm consulted for pre-procedure eval and pt will need to be stabilized first before endoscopy. 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 Light. Pt states Hct goal is 55. # RAINER - CPAP HS # F/E/N - PO - Cont. to monitor - Regular diet # DVT prophylaxis - On Xarelto # Disposition - Telemetry - F/u out-pt: 1.3 cm R. hepatic cyst - Consider pre/post to determine need for home 02. Pt reports he had need for home 02 in the past and does not want to use this treatment because it is uncomfortable. Pt was educated on the need and is amenable to home o2 if in the form of a more portable device. Ernesto Bennett MD Visit type - Emergency Visit Emergency Visit: No - New Patient This patient is new to me today: No - Critical Care Critical Care patient: No ATTENDING PHYSICIAN STATEMENT I saw and evaluated the patient. I reviewed the resident's note and discussed the case with the resident. I agree with the resident's findings and plan as documented. SUBJECTIVE: OBJECTIVE: ASSESSMENT AND PLAN:
[2019-04-11] MEDS: POLYETHYLENE GLYCOL 3350 119 GM BTL PO SCH ×2 (15:57→21:51)
--- NOTE | 2019-04-11 18:31 | PN ---
Teaching Attending Note Name of Resident: Ernesto Bennett ATTENDING PHYSICIAN STATEMENT I saw and evaluated the patient. I reviewed the resident's note and discussed the case with the resident. I agree with the resident's findings and plan as documented. SUBJECTIVE: Patient is feeling better today but not the best. needing oxygen supplement. since desaturating on RA. Vital Signs Temperature 98.6 F 04/11/19 18:00 Pulse Rate 109 H 04/11/19 18:00 Respiratory Rate 20 04/11/19 18:00 Blood Pressure 128/77 04/11/19 18:00 O2 Sat by Pulse Oximetry (%) 90 L 04/11/19 10:00 GENERAL: The patient is awake, alert, and fully oriented, in no acute distress. HEAD: Normal with no signs of trauma. EYES: PERRL, extraocular movements intact, sclera anicteric, conjunctiva clear. ENT: Ears normal, oropharynx clear without exudates, moist mucous membranes. NECK: Trachea midline, full range of motion, supple. LUNGS: decreased Breath sounds BL, + wheezing bl, no crackles, no accessory muscle use. HEART: irregularly -irregular ,S1, S2 without murmur, rub or gallop. ABDOMEN: Soft, nontender, nondistended, normoactive bowel sounds, no guarding, no rebound, no hepatosplenomegaly, no masses. EXTREMITIES: 2+ pulses, warm, well-perfused, no edema. NEUROLOGICAL: Cranial nerves II through XII grossly intact. Normal speech, gait not observed. PSYCH: Normal mood, normal affect. SKIN: Warm, dry, normal turgor, no rashes or lesions noted CBCD WBC 10.5 K/mm3 (4.0-10.0) H 04/11/19 05:40 RBC 5.62 M/mm3 (4.00-5.60) H 04/11/19 05:40 Hgb 16.6 GM/dL (11.7-16.9) 04/11/19 05:40 Hct 50.6 % (35.4-49) H 04/11/19 05:40 MCV 89.9 fl (80-96) 04/11/19 05:40 MCHC 32.9 g/dl (32.0-35.9) 04/11/19 05:40 RDW 14.9 % (11.9-15.9) 04/11/19 05:40 Plt Count 154 K/MM3 (134-434) 04/11/19 05:40 MPV 7.6 fl (7.5-11.1) 04/11/19 05:40 CMP Sodium 138 mmol/L (136-145) 04/10/19 06:20 Potassium 4.3 mmol/L (3.5-5.1) 04/10/19 06:20 Chloride 100 mmol/L (98-107) 04/10/19 06:20 Carbon Dioxide 32 mmol/L (21-32) 04/10/19 06:20 Anion Gap 6 MMOL/L (8-16) L 04/10/19 06:20 BUN 31.9 mg/dL (7-18) H 04/10/19 06:20 Creatinine 1.2 mg/dL (0.55-1.3) 04/10/19 06:20 Random Glucose 155 mg/dL (74-106) H 04/10/19 06:20 Calcium 9.1 mg/dL (8.5-10.1) 04/10/19 06:20 Total Bilirubin 0.6 mg/dL (0.2-1) 04/10/19 06:20 AST 24 U/L (15-37) 04/10/19 06:20 ALT 49 U/L (13-61) 04/10/19 06:20 Alkaline Phosphatase 57 U/L (45-117) 04/10/19 06:20 Total Protein 5.8 g/dl (6.4-8.2) L 04/10/19 06:20 Albumin 3.2 g/dl (3.4-5.0) L 04/10/19 06:20 CARDIAC ENZYMES Creatine Kinase 110 U/L (26-308) 04/08/19 06:28 Troponin I < 0.02 ng/ml (0.00-0.05) 04/08/19 06:28 Home Medications Medication Instructions Recorded Albuterol 2.5/Ipratropium 0.5 1 neb NEB Q4H 04/07/19 [Duoneb -] Albuterol Sulfate [Proair Hfa] 8.5 gm IH DAILY 04/07/19 Diltiazem HCl [Diltiazem 24Hr Cd] 180 mg PO HS 04/07/19 Gabapentin 600 mg PO BID 04/07/19 Rivaroxaban [Xarelto -] 20 mg PO DAILY 04/07/19 Tiotropium Br/Olodaterol HCl 2.5 mcg IH DAILY 04/07/19 [Stiolto Respimat Inhal [place]] Diltiazem HCl [Diltiazem ER] 120 mg PO HS 04/08/19 Current Medications Generic Name Dose Route Start Last Admin Trade Name Freq PRN Reason Stop Dose Admin Albuterol Sulfate 1 amp 04/10/19 15:12 04/11/19 03:22 Ventolin 0.083% Nebulizer Soln - NEB 1 amp Q4H PRN Administration SHORT OF BREATH/WHEEZING Albuterol/Ipratropium 1 amp 04/10/19 16:00 04/11/19 15:54 Duoneb - NEB 1 amp RQID [facility] Administration Atorvastatin Calcium 10 mg 04/08/19 22:00 04/10/19 21:41 Lipitor - PO Not Given HS [facility] Bupropion HCl 300 mg 04/11/19 10:00 04/11/19 10:02 Wellbutrin Xl - PO 300 mg DAILY [facility] Administration Diltiazem HCl 180 mg/ 300 mg 04/10/19 10:00 04/11/19 09:57 Diltiazem HCl 120 mg PO 300 mg DAILY [facility] Administration Docusate Sodium 100 mg 04/10/19 10:00 04/11/19 09:56 Colace - PO 100 mg DAILY [facility] Administration Gabapentin 600 mg 04/12/19 10:00 Neurontin - PO DAILY [facility] Dextrose/Sodium Chloride 1,000 mls @ 100 mls/hr 04/07/19 15:30 04/10/19 17:26 D5-1/2ns - IV Not Given ASDIR [facility] Melatonin 5 mg 04/09/19 22:00 04/10/19 21:42 Melatonin PO 5 mg HS PRN Administration INSOMNIA Methylprednisolone Sodium Succinate 40 mg 04/11/19 22:00 Solu-Medrol - IVPUSH BID [facility] Pantoprazole Sodium 40 mg 04/07/19 22:00 04/11/19 10:02 Protonix Iv IVPUSH 40 mg BID [facility] Administration Polyethylene Glycol 17 gm 04/11/19 12:15 04/11/19 15:57 Miralax (For Daily Use) - PO 17 gm BID [facility] Administration Rivaroxaban 20 mg 04/09/19 17:30 04/11/19 09:56 Xarelto PO 20 mg DAILY [facility] Administration Sodium Chloride 2 spray 04/08/19 11:11 04/08/19 21:00 [place] Nasal [place] - NS 2 spray TID PRN Administration NASAL CONGESTION CT abdomen and pelvis:mild to moderate enlargement of prostate, with 1x0.5cm urinary bladde polypoid lesion along the posterolateral aspect of the urinary bladder. ASSESSMENT AND PLAN: Pt. is a 63 y.o. F w/ PMHx. of Afib (on Xarelto), COPD (not on home O2 by choice ), Polycythemia vera ( last phlebotomy 2 years ago), RLS, Anxiety and Arthritis presents for abdominal pain that has been worsening over the last 2 weeks. #ACUTE COPD EXACERBATION : continue nebulizers, on IV steroids continue , pulmonary appreciated , not cleared for any procedure yet. #Abdominal Pain resolved :Abd. US negative for gall stones, shows fatty liver, 1.3 cm R. hepatic cyst, pancreatic duct 2mm. #aFIB with RVR continue XARELTO , continue CARDIZEM, nost likely due to nebulizer treatments. # Polycythemia : ON OXYGEN 2 LITER , O2 to keep Spo2 >90% #Obstructive Sleep Apnea, CPAP at night, continue oxygen #Anxiety DISORDER continue home meds. #Unintentional Weight Loss/Failure to Thrive; further w/u as an outpatient once stable #Smoker: smoking cessation discuss dvT PX: xarelto PER PULMONARY : TO defer elective invasive procedures at this time until acute exacerbation improves
[2019-04-11] MEDS: ATORVASTATIN CA 10 MG TABLET (FP) PO SCH (21:50)
[2019-04-11] MEDS: MELATONIN 5 MG TABLETS PO PRN (21:50)
[2019-04-12 07:23] LABS: HEMATOCRIT 52.8 % (35.4-49); HEMOGLOBIN 17.3 GM/dL (11.7-16.9); MCH 29.3 pg (25.7-33.7); MCHC 32.8 g/dl (32.0-35.9); MEAN CELL VOLUME 89.4 fl (80-96); MEAN PLT VOLUME 7.9 fl (7.5-11.1); PLATELET COUNT 147 K/MM3 (134-434); RDW 15.2 % (11.9-15.9); WHITE BLOOD COUNT 17.1 K/mm3 (4.0-10.0)
[2019-04-12 08:18] LABS: ALBUMIN 3.2 g/dl (3.4-5.0); BILIRUBIN,TOTAL 0.7 mg/dL (0.2-1); BLOOD UREA NITROGEN 32.6 mg/dL (7-18); CALCIUM 9.1 mg/dL (8.5-10.1); CREATININE 1.2 mg/dL (0.55-1.3); POTASSIUM 4.8 mmol/L (3.5-5.1)
[2019-04-12] MEDS: ALBUTEROL SO4 2.5/IPRATROPIUM 0.5 INH SOL 3 ML VIAL.NEB. NEB SCH ×4 (08:22→20:21)
[2019-04-12] MEDS: PANTOPRAZOLE SODIUM 40 MG VIAL IVPUSH SCH ×2 (10:00→21:32)
[2019-04-12] MEDS: methylPREDNISolone NA SUCC 40 MG/1 ML VIAL IVPUSH SCH ×2 (10:00→21:32)
[2019-04-12] MEDS: DILTIAZEM CD 180 MG, DILTIAZEM CD 120 MG PO SCH (10:00)
[2019-04-12] MEDS: SENNOSIDES 8.6MG TABLET (FP) PO SCH ×2 (10:00→21:32)
[2019-04-12] MEDS: GABAPENTIN 300 MG CAPSULE PO SCH (10:01)
[2019-04-12] MEDS: RIVAROXABAN 20 MG TABLET PO SCH (10:01)
[2019-04-12] MEDS: DOCUSATE SODIUM 100 MG CAPSULE (FP) PO SCH (10:01)
[2019-04-12] MEDS: POLYETHYLENE GLYCOL 3350 119 GM BTL PO SCH ×2 (10:02→21:33)
--- NOTE | 2019-04-12 10:42 | PN ---
Progress Note, Physician History of Present Illness: The patient is a 63 year old white man, with a significant PMH of Afib (on diltiazem and Xarelto), COPD (denies asthma; tolerated beta blockers for AF in the past; per , pt refuses to use prescribed home O2),, polycythemia vera ( last phlebotomy was 2 years ago), RAINER/RLS (on CPAP), and anxiety/depression/ panic, who presents to the ED for evaluation of abdominal pain for 2 weeks. Patient complains of diffuse upper abdominal pain, which has been chronic over the past two years but has become progressively worse over the past two weeks. He notes the pain is onset typically ~20-30 minutes after eating, and lasts for ~2 hours. His pain is exacerbated with eating solid foods, specifically meats. Patient notes he has been unable to sleep secondary to the pain. He additionally states that his food goes down slower than normal, and his bowel movements are smaller than typical. He denies any current abdominal pain while in the ED, but notes he was experiencing it a few hours ago after he ate breakfast. Planned now for EGD. Pt does report chronic shortness of breath, chest tightness and wheezing. Reports an unintentional weight loss of 20lbs over the past month. He uses Stiolto and albuterol at home. He started smoking at age 17, smoked as much as 2 PPD and still currently smokes. He was placed on prednisone about 2 weeks ago with improvement in dyspnea. Never been on steroids prior to that. Denies hx seizures. patient additionally complains of bilateral LE edema for the past 2 days. Pt says he [facility]: nonobstructive disease, but "something in the lower part was not right". He has had severeal stress tests since, the latest about a year ago. [facility] [place]. On rivaroxaban 20 mg daily; had an episode of bleeding years ago, but not since. PMD: Dr. Ball Cardio: Dr. Cast ([place]) - Current Medication List Current Medications: Active Medications Albuterol Sulfate (Ventolin 0.083% Nebulizer Soln -) 1 amp NEB Q4H PRN PRN Reason: SHORT OF BREATH/WHEEZING Last Admin: 02/02/20 03:22 Dose: 1 amp Albuterol/Ipratropium (Duoneb -) 1 amp NEB RQID [facility] Last Admin: 04/12/19 08:22 Dose: 1 amp Atorvastatin Calcium (Lipitor -) 10 mg PO HS [facility] Last Admin: 04/11/19 21:50 Dose: Not Given Bupropion HCl (Wellbutrin Xl -) 300 mg PO DAILY [facility] Last Admin: 04/12/19 10:01 Dose: 300 mg Diltiazem HCl 180 mg/ (Diltiazem HCl 120 mg) 300 mg PO DAILY [facility] Last Admin: 04/12/19 10:00 Dose: 300 mg Docusate Sodium (Colace -) 100 mg PO DAILY [facility] Last Admin: 04/12/19 10:01 Dose: 100 mg Gabapentin (Neurontin -) 600 mg PO DAILY [facility] Last Admin: 04/12/19 10:01 Dose: 600 mg Melatonin (Melatonin) 5 mg PO HS PRN PRN Reason: INSOMNIA Last Admin: 04/11/19 21:50 Dose: 5 mg Methylprednisolone Sodium Succinate (Solu-Medrol -) 40 mg IVPUSH BID [facility] Last Admin: 04/12/19 10:00 Dose: 40 mg Pantoprazole Sodium (Protonix Iv) 40 mg IVPUSH BID [facility] Last Admin: 04/12/19 10:00 Dose: 40 mg Polyethylene Glycol (Miralax (For Daily Use) -) 17 gm PO BID [facility] Last Admin: 04/12/19 10:02 Dose: 17 gm Rivaroxaban (Xarelto) 20 mg PO DAILY [facility] Last Admin: 04/12/19 10:01 Dose: 20 mg Senna (Senna -) 1 tab PO BID [facility] Last Admin: 04/12/19 10:00 Dose: 1 tab Sodium Chloride ([place] Nasal [place] -) 2 spray NS TID PRN PRN Reason: NASAL CONGESTION Last Admin: 04/08/19 21:00 Dose: 2 spray - Objective Vital Signs: Vital Signs Temperature 98.0 F 04/12/19 05:59 Pulse Rate 103 H 04/12/19 05:59 Respiratory Rate 22 H 04/12/19 05:59 Blood Pressure 112/68 04/12/19 05:59 O2 Sat by Pulse Oximetry (%) 91 L 04/11/19 20:17 Eyes: Yes: WNL, Conjunctiva Clear, EOM Intact HENT: Yes: WNL, Atraumatic, Normocephalic Neck: Yes: WNL, Supple, Trachea Midline Cardiovascular: Yes: WNL, Regular Rate and Rhythm Respiratory: Yes: WNL, Regular, CTA Bilaterally Gastrointestinal: Yes: WNL, Normal Bowel Sounds Genitourinary: Yes: WNL Musculoskeletal: Yes: WNL Extremities: Yes: WNL Edema: No Integumentary: Yes: WNL Neurological: Yes: WNL, Alert, Oriented ...Motor Strength: WNL Psychiatric: Yes: WNL Labs: CBC, BMP 04/12/19 06:00 04/12/19 06:00 INR, PTT INR 1.29 (0.83-1.09) H 04/09/19 19:50 Assessment/Plan - Problems (1) COPD exacerbation Assessment/Plan: Bronchodilators, O2, steroids per neon electrician Code(s): J44.1 - CHRONIC OBSTRUCTIVE PULMONARY DISEASE W (ACUTE) EXACERBATION (2) Ventral hernia Code(s): K43.9 - VENTRAL HERNIA WITHOUT OBSTRUCTION OR GANGRENE (3) Anxiety and depression Assessment/Plan: Now on Wellbutrin for anxiety and as aid to stop smoking. Code(s): F41.9 - ANXIETY DISORDER, UNSPECIFIED; F32.9 - MAJOR DEPRESSIVE DISORDER, SINGLE EPISODE, UNSPECIFIED (4) Smokes cigarettes Assessment/Plan: Pt was on nicotine patch, but kept removing it and smoking. Smokes a pack a day or more again. Agrees to try Wellbutrin (for anxiety/derpression and cigarettes; denies hx seizures). Code(s): F17.210 - NICOTINE DEPENDENCE, CIGARETTES, UNCOMPLICATED (5) CHF (congestive heart failure) Assessment/Plan: BNP 257 CXR: COPD; no acute infiltrate No JVD F/u BUN/Cr, electrolytes, daily weight, Is and Os. Code(s): I50.9 - HEART FAILURE, UNSPECIFIED (6) [place] cardiac risk >20% in next 10 years Code(s): Z91.89 - OTH PERSONAL RISK FACTORS, NOT ELSEWHERE CLASSIFIED (7) Abdominal pain Assessment/Plan: f/u with Cosmetic Dentist Pt is in marked respiratory distress; would not do elective procedures until this has been stabilized. rivaroxaban restarted Code(s): R10.9 - UNSPECIFIED ABDOMINAL PAIN Qualifiers: Abdominal location: upper abdomen, unspecified Qualified Code(s): R10.10 - Upper abdominal pain, unspecified (8) Hypoxia Code(s): R09.02 - HYPOXEMIA (9) Polycythemia rubra vera Code(s): D45 - POLYCYTHEMIA VERA (10) Atrial fibrillation with rapid ventricular response Assessment/Plan: Continue diltiazem for HR control F/u EKG; telemetry. ECHO - mildly reduced EF 45-50% TDS F/u prior cardiac workup of coronary arteries (hx coronary angiogram; stress tests). If no recent ischemic w/u , will need MIBI stress test. Code(s): I48.91 - UNSPECIFIED ATRIAL FIBRILLATION (11) Hyperlipidemia Assessment/Plan: Start statin, and keep LDL < 70 mg/dL. Code(s): E78.5 - HYPERLIPIDEMIA, UNSPECIFIED
--- NOTE | 2019-04-12 11:52 | PN ---
Progress Note (short form) - Note Progress Note: Breathing feels a little better today. Less cough and wheezing. Secretions are less but thicker. Intake & Output 04/09/19 04/10/19 04/11/19 04/12/19 23:59 23:59 23:59 23:59 Intake Total 240 1270 1320 Output Total 1050 Balance 240 1270 270 Weight 204 lb 9.6 oz Last Vital Signs Temp Pulse Resp BP Pulse Ox 98.0 F 103 H 22 H 112/68 91 L 04/12/19 05:59 04/12/19 05:59 04/12/19 05:59 04/12/19 05:59 04/11/19 20:17 Active Medications Albuterol Sulfate (Ventolin 0.083% Nebulizer Soln -) 1 amp NEB Q4H PRN PRN Reason: SHORT OF BREATH/WHEEZING Last Admin: 04/11/19 03:22 Dose: 1 amp Albuterol/Ipratropium (Duoneb -) 1 amp NEB RQID [facility] Last Admin: 04/12/19 08:22 Dose: 1 amp Atorvastatin Calcium (Lipitor -) 10 mg PO HS [facility] Last Admin: 04/11/19 21:50 Dose: Not Given Bupropion HCl (Wellbutrin Xl -) 300 mg PO DAILY [facility] Last Admin: 04/12/19 10:01 Dose: 300 mg Diltiazem HCl 180 mg/ (Diltiazem HCl 120 mg) 300 mg PO DAILY [facility] Last Admin: 04/12/19 10:00 Dose: 300 mg Docusate Sodium (Colace -) 100 mg PO DAILY [facility] Last Admin: 04/12/19 10:01 Dose: 100 mg Gabapentin (Neurontin -) 600 mg PO DAILY [facility] Last Admin: 04/12/19 10:01 Dose: 600 mg Melatonin (Melatonin) 5 mg PO HS PRN PRN Reason: INSOMNIA Last Admin: 04/11/19 21:50 Dose: 5 mg Methylprednisolone Sodium Succinate (Solu-Medrol -) 40 mg IVPUSH BID [facility] Last Admin: 04/12/19 10:00 Dose: 40 mg Pantoprazole Sodium (Protonix Iv) 40 mg IVPUSH BID [facility] Last Admin: 04/12/19 10:00 Dose: 40 mg Polyethylene Glycol (Miralax (For Daily Use) -) 17 gm PO BID [facility] Last Admin: 04/12/19 10:02 Dose: 17 gm Rivaroxaban (Xarelto) 20 mg PO DAILY [facility] Last Admin: 04/12/19 10:01 Dose: 20 mg Senna (Senna -) 1 tab PO BID [facility] Last Admin: 04/12/19 10:00 Dose: 1 tab Sodium Chloride ([place] Nasal [place] -) 2 spray NS TID PRN PRN Reason: NASAL CONGESTION Last Admin: 04/08/19 21:00 Dose: 2 spray Gen: less tachypneic Heart: RRR Lung: distant breath sounds Abd: soft, nontender Ext: no edema Laboratory Results - last 24 hr 04/12/19 04/12/19 04/12/19 06:00 06:00 06:00 WBC 17.1 H RBC 5.90 H Hgb 17.3 H Hct 52.8 H MCV 89.4 MCH 29.3 MCHC 32.8 RDW 15.2 Plt Count 147 MPV 7.9 PTT (Actin FS) 29.7 Sodium 138 Potassium 4.8 Chloride 98 Carbon Dioxide 34 H Anion Gap 5 L BUN 32.6 H Creatinine 1.2 Est GFR (CKD-EPI)AfAm 74.66 Est GFR (CKD-EPI)NonAf 64.42 Random Glucose 137 H Calcium 9.1 Total Bilirubin 0.7 AST 39 H ALT 105 H Alkaline Phosphatase 57 Total Protein 6.0 L Albumin 3.2 L A/P Acute COPD Exacerbation Obstructive Sleep Apnea Anxiety Atrial Fibrillation Unintentional Weight Loss/Failure to Thrive Smoker - Medrol q12h - inhaled bronchodilators standing and PRN - O2 to keep Spo2 >90% - CPAP at night - rate control - continue anticoagulation - smoking cessation discussed - would defer elective invasive procedures at this time until acute exacerbation improves Dr Velazquez
--- NOTE | 2019-04-12 11:53 | PN ---
Physical Exam: SUBJECTIVE: Patient seen and examined at bedside. Overnight there were no acute events. This am he says his breathing is the same. He does not feel SOB. He is upset that he has not been given an o2 tank so that he can walk around. This AM he had his first BM; hard and pellet like, non-bloody, non-mucoid. OBJECTIVE: Vital Signs Temp Pulse Resp BP Pulse Ox 98.3 F 115 H 22 H 124/54 L 90 L 04/12/19 15:36 04/12/19 15:36 04/12/19 15:36 04/12/19 15:36 04/12/19 09:00 GENERAL: AOx3, in no acute distress. HEAD: NCAT EYES: ISAI, EOMI, conjunctiva clear. ENT: Ears normal, nares patent, oropharynx clear without exudates. Moist mucous membranes. NECK: Normal range of motion, supple without lymphadenopathy, JVD, or masses. LUNGS: CTAB. End expiratory wheezes BL, and no crackles. No accessory muscle use. Saturating at 92% on humidified 4L NC. HEART: RRR s1 s2 ABDOMEN: Soft, BS present in all 4 quadrants, non-distended, no JVD, MUSCULOSKELETAL: No bony deformities or tenderness. No CVA tenderness. UPPER EXTREMITIES: 2+ pulses, warm, well-perfused. No cyanosis. No clubbing. No peripheral edema. LOWER EXTREMITIES: 2+ pulses, warm, well-perfused. No calf tenderness. No peripheral edema. NEUROLOGICAL: No focal deficits. Cranial nerves II-XII intact. Normal speech. Gait not appreciated. PSYCHIATRIC: Cooperative. Good eye contact. Appropriate mood and affect. SKIN: Warm, dry, normal turgor, no rashes or lesions noted, normal capillary refill. Laboratory Results - last 24 hr 04/12/19 04/12/19 04/12/19 06:00 06:00 06:00 WBC 17.1 H RBC 5.90 H Hgb 17.3 H Hct 52.8 H MCV 89.4 MCH 29.3 MCHC 32.8 RDW 15.2 Plt Count 147 MPV 7.9 PTT (Actin FS) 29.7 Sodium 138 Potassium 4.8 Chloride 98 Carbon Dioxide 34 H Anion Gap 5 L BUN 32.6 H Creatinine 1.2 Est GFR (CKD-EPI)AfAm 74.66 Est GFR (CKD-EPI)NonAf 64.42 Random Glucose 137 H Calcium 9.1 Total Bilirubin 0.7 AST 39 H ALT 105 H Alkaline Phosphatase 57 Total Protein 6.0 L Albumin 3.2 L Active Medications Albuterol Sulfate (Ventolin 0.083% Nebulizer Soln -) 1 amp NEB Q4H PRN PRN Reason: SHORT OF BREATH/WHEEZING Last Admin: 04/11/19 03:22 Dose: 1 amp Albuterol/Ipratropium (Duoneb -) 1 amp NEB RQID [facility] Last Admin: 04/12/19 16:09 Dose: 1 amp Atorvastatin Calcium (Lipitor -) 10 mg PO HS [facility] Last Admin: 04/11/19 21:50 Dose: Not Given Bupropion HCl (Wellbutrin Xl -) 300 mg PO DAILY [facility] Last Admin: 04/12/19 10:01 Dose: 300 mg Diltiazem HCl 180 mg/ (Diltiazem HCl 120 mg) 300 mg PO DAILY [facility] Last Admin: 04/12/19 10:00 Dose: 300 mg Docusate Sodium (Colace -) 100 mg PO DAILY [facility] Last Admin: 04/12/19 10:01 Dose: 100 mg Gabapentin (Neurontin -) 600 mg PO DAILY [facility] Last Admin: 04/12/19 10:01 Dose: 600 mg Melatonin (Melatonin) 5 mg PO HS PRN PRN Reason: INSOMNIA Last Admin: 04/11/19 21:50 Dose: 5 mg Methylprednisolone Sodium Succinate (Solu-Medrol -) 40 mg IVPUSH BID [facility] Last Admin: 04/12/19 10:00 Dose: 40 mg Pantoprazole Sodium (Protonix Iv) 40 mg IVPUSH BID [facility] Last Admin: 04/12/19 10:00 Dose: 40 mg Polyethylene Glycol (Miralax (For Daily Use) -) 17 gm PO BID [facility] Last Admin: 04/12/19 10:02 Dose: 17 gm Rivaroxaban (Xarelto) 20 mg PO DAILY [facility] Last Admin: 04/12/19 10:01 Dose: 20 mg Senna (Senna -) 1 tab PO BID [facility] Last Admin: 04/12/19 10:00 Dose: 1 tab Sodium Chloride ([place] Nasal [place] -) 2 spray NS TID PRN PRN Reason: NASAL CONGESTION Last Admin: 04/08/19 21:00 Dose: 2 spray ASSESSMENT/PLAN: 63 y/o male PMH COPD, RAINER, polycythemia vera, RLS, anxiety, arthritis, and afib came in c/o abdominal pain that has resolved on its own. His a-fib has been under control. BM now achieved. He breathing is stable/improving slowly. Transaminitis noted. He is asymptomatic with no clinical evidence to support findings; no ab pain, no icterus, no jaundice. # Transaminitis - RUQ NEG - Follow LFT # COPD - Solumedrol 40 mg iv BID - Duonebs patience, albuterol prn # A-fib - Less tachycardia and no RVR - Cont. 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 Light. Pt states Hct goal is 55. # RAINER - CPAP HS # F/E/N - PO - Cont. to monitor - Regular diet # DVT prophylaxis - On Xarelto # Disposition - Telemetry - F/u out-pt: 1.3 cm R. hepatic cyst Ernesto Bennett MD Visit type - Emergency Visit Emergency Visit: No - New Patient This patient is new to me today: No - Critical Care Critical Care patient: No ATTENDING PHYSICIAN STATEMENT I saw and evaluated the patient. I reviewed the resident's note and discussed the case with the resident. I agree with the resident's findings and plan as documented. SUBJECTIVE: OBJECTIVE: ASSESSMENT AND PLAN:
--- NOTE | 2019-04-12 16:45 | PN ---
Teaching Attending Note Name of Resident: Ernesto Bennett ATTENDING PHYSICIAN STATEMENT I saw and evaluated the patient. I reviewed the resident's note and discussed the case with the resident. I agree with the resident's findings and plan as documented. SUBJECTIVE: Patient is better but needing oxygen Vital Signs Temperature 98.3 F 04/12/19 15:36 Pulse Rate 115 H 04/12/19 15:36 Respiratory Rate 22 H 04/12/19 15:36 Blood Pressure 124/54 L 04/12/19 15:36 O2 Sat by Pulse Oximetry (%) 90 L 04/12/19 09:00 GENERAL: The patient is awake, alert, and fully oriented, in no acute distress. HEAD: Normal with no signs of trauma. EYES: PERRL, extraocular movements intact, sclera anicteric, conjunctiva clear. ENT: Ears normal, oropharynx clear without exudates, moist mucous membranes. NECK: Trachea midline, full range of motion, supple. LUNGS: decreased Breath sounds BL, + wheezing bl, no crackles, no accessory muscle use. HEART: irregularly -irregular ,S1, S2 without murmur, rub or gallop. ABDOMEN: Soft, nontender, nondistended, normoactive bowel sounds, no guarding, no rebound, no hepatosplenomegaly, no masses. EXTREMITIES: 2+ pulses, warm, well-perfused, no edema. NEUROLOGICAL: Cranial nerves II through XII grossly intact. Normal speech, gait not observed. PSYCH: Normal mood, normal affect. SKIN: Warm, dry, normal turgor, no rashes or lesions noted CBCD WBC 17.1 K/mm3 (4.0-10.0) H 04/12/19 06:00 RBC 5.90 M/mm3 (4.00-5.60) H 04/12/19 06:00 Hgb 17.3 GM/dL (11.7-16.9) H 04/12/19 06:00 Hct 52.8 % (35.4-49) H 04/12/19 06:00 MCV 89.4 fl (80-96) 04/12/19 06:00 MCHC 32.8 g/dl (32.0-35.9) 04/12/19 06:00 RDW 15.2 % (11.9-15.9) 04/12/19 06:00 Plt Count 147 K/MM3 (134-434) 04/12/19 06:00 MPV 7.9 fl (7.5-11.1) 04/12/19 06:00 CMP Sodium 138 mmol/L (136-145) 04/12/19 06:00 Potassium 4.8 mmol/L (3.5-5.1) 04/12/19 06:00 Chloride 98 mmol/L (98-107) 04/12/19 06:00 Carbon Dioxide 34 mmol/L (21-32) H 04/12/19 06:00 Anion Gap 5 MMOL/L (8-16) L 04/12/19 06:00 BUN 32.6 mg/dL (7-18) H 04/12/19 06:00 Creatinine 1.2 mg/dL (0.55-1.3) 04/12/19 06:00 Random Glucose 137 mg/dL (74-106) H 04/12/19 06:00 Calcium 9.1 mg/dL (8.5-10.1) 04/12/19 06:00 Total Bilirubin 0.7 mg/dL (0.2-1) 04/12/19 06:00 AST 39 U/L (15-37) H 04/12/19 06:00 ALT 105 U/L (13-61) H 04/12/19 06:00 Alkaline Phosphatase 57 U/L (45-117) 04/12/19 06:00 Total Protein 6.0 g/dl (6.4-8.2) L 04/12/19 06:00 Albumin 3.2 g/dl (3.4-5.0) L 04/12/19 06:00 CARDIAC ENZYMES Creatine Kinase 110 U/L (26-308) 04/08/19 06:28 Troponin I < 0.02 ng/ml (0.00-0.05) 04/08/19 06:28 Current Medications Generic Name Dose Route Start Last Admin Trade Name Freq PRN Reason Stop Dose Admin Albuterol Sulfate 1 amp 04/10/19 15:12 04/11/19 03:22 Ventolin 0.083% Nebulizer Soln - NEB 1 amp Q4H PRN Administration SHORT OF BREATH/WHEEZING Albuterol/Ipratropium 1 amp 04/10/19 16:00 04/12/19 16:09 Duoneb - NEB 1 amp RQID [facility] Administration Atorvastatin Calcium 10 mg 04/08/19 22:00 04/11/19 21:50 Lipitor - PO Not Given HS [facility] Bupropion HCl 300 mg 04/11/19 10:00 04/12/19 10:01 Wellbutrin Xl - PO 300 mg DAILY [facility] Administration Diltiazem HCl 180 mg/ 300 mg 04/10/19 10:00 04/12/19 10:00 Diltiazem HCl 120 mg PO 300 mg DAILY [facility] Administration Docusate Sodium 100 mg 04/10/19 10:00 04/12/19 10:01 Colace - PO 100 mg DAILY [facility] Administration Gabapentin 600 mg 04/12/19 10:00 04/12/19 10:01 Neurontin - PO 600 mg DAILY [facility] Administration Melatonin 5 mg 04/09/19 22:00 04/11/19 21:50 Melatonin PO 5 mg HS PRN Administration INSOMNIA Methylprednisolone Sodium Succinate 40 mg 04/11/19 22:00 04/12/19 10:00 Solu-Medrol - IVPUSH 40 mg BID [facility] Administration Pantoprazole Sodium 40 mg 04/07/19 22:00 04/12/19 10:00 Protonix Iv IVPUSH 40 mg BID [facility] Administration Polyethylene Glycol 17 gm 04/11/19 12:15 04/12/19 10:02 Miralax (For Daily Use) - PO 17 gm BID [facility] Administration Rivaroxaban 20 mg 04/09/19 17:30 04/12/19 10:01 Xarelto PO 20 mg DAILY [facility] Administration Senna 1 tab 04/12/19 10:00 04/12/19 10:00 Senna - PO 1 tab BID [facility] Administration Sodium Chloride 2 spray 04/08/19 11:11 04/08/19 21:00 [place] Nasal [place] - NS 2 spray TID PRN Administration NASAL CONGESTION Home Medications Medication Instructions Recorded Albuterol 2.5/Ipratropium 0.5 1 neb NEB Q4H 04/07/19 [Duoneb -] Albuterol Sulfate [Proair Hfa] 8.5 gm IH DAILY 04/07/19 Diltiazem HCl [Diltiazem 24Hr Cd] 180 mg PO HS 04/07/19 Gabapentin 600 mg PO BID 04/07/19 Rivaroxaban [Xarelto -] 20 mg PO DAILY 04/07/19 Tiotropium Br/Olodaterol HCl 2.5 mcg IH DAILY 04/07/19 [Stiolto Respimat Inhal Nova] Diltiazem HCl [Diltiazem ER] 120 mg PO HS 04/08/19 Aspirin [ASA -] 81 mg PO DAILY 04/10/19 CT abdomen and pelvis:mild to moderate enlargement of prostate, with 1x0.5cm urinary bladde polypoid lesion along the posterolateral aspect of the urinary bladder. ASSESSMENT AND PLAN: Pt. is a 63 y.o. F w/ PMHx. of Afib (on Xarelto), COPD (not on home O2 by choice ), Polycythemia vera ( last phlebotomy 2 years ago), RLS, Anxiety and Arthritis presents for abdominal pain that has been worsening over the last 2 weeks. #ACUTE COPD EXACERBATION : continue nebulizers, on IV steroids continue , pulmonary appreciated will discuss with pulm . #Abdominal Pain resolved: Abd.US negative for gall stones, shows fatty liver, 1.3 cm R. hepatic cyst, pancreatic duct 2mm. #aFIB with RVR: continue XARELTO , CARDIZEM, nost likely due to nebulizer treatments. #Polycythemia : ON OXYGEN 2 LITER , O2 to keep Spo2 >90% #Obstructive Sleep Apnea: CPAP at night, continue oxygen #Anxiety DISORDER: continue home meds. #Smoker: smoking cessation discuss dvT PX: xarelto PER PULMONARY : TO defer elective invasive procedures at this time until acute exacerbation improves
[2019-04-12] MEDS: MELATONIN 5 MG TABLETS PO PRN (21:33)
[2019-04-12] MEDS: ATORVASTATIN CA 10 MG TABLET (FP) PO SCH (21:34)
[2019-04-13] MEDS: ALBUTEROL SO4 0.083% IH SOL 2.5 MG/3 ML VIAL.NEB. NEB PRN (03:50)
[2019-04-13 06:37] LABS: HEMATOCRIT 52.3 % (35.4-49); HEMOGLOBIN 17.1 GM/dL (11.7-16.9); MCH 29.3 pg (25.7-33.7); MCHC 32.7 g/dl (32.0-35.9); MEAN CELL VOLUME 89.4 fl (80-96); PLATELET COUNT 140 K/MM3 (134-434); RBC 5.85 M/mm3 (4.00-5.60); RDW 14.7 % (11.9-15.9); WHITE BLOOD COUNT 14.8 K/mm3 (4.0-10.0)
[2019-04-13 07:06] LABS: BILIRUBIN,TOTAL 1.3 mg/dL (0.2-1); BLOOD UREA NITROGEN 28.1 mg/dL (7-18); CALCIUM 8.6 mg/dL (8.5-10.1); CREATININE 1.1 mg/dL (0.55-1.3); POTASSIUM 4.7 mmol/L (3.5-5.1); TOT PROT 5.7 g/dl (6.4-8.2)
[2019-04-13] MEDS: ALBUTEROL SO4 2.5/IPRATROPIUM 0.5 INH SOL 3 ML VIAL.NEB. NEB SCH ×4 (07:47→20:07)
--- NOTE | 2019-04-13 08:25 | PN ---
Progress Note, Physician History of Present Illness: GI FOLLOW UP NOTE Patient evaluated and case discussed with Dr Henry Patient denies dysphagia, nausea, vomiting, abdominal pain, diarrhea, constipation, rectal bleeding, melena. UGIS performed and showed no evidence of hiatal hernia, distal esophageal stricture, no gastroesophageal reflux, no evidence of gastric duodenal bulb ulcer. EGD has been held until patient is medically optimized given his current COPD exacerbation and current use of Xarelto for A-fib. When discussed possibility of having EGD performed patient states "I don't feel it's necessary right now". Recent labs show sudden elevation in LFTs with ALT 122. Abdominal US shows fatty infiltration of liver , 1.3cm right hepatic lobe cyst, pancreatic duct in the head region meaures about 2mm which is within upper normal limits. Patient does state prior to hospitalization he had a 10-20lb weight loss. - Current Medication List Current Medications: Active Medications Albuterol Sulfate (Ventolin 0.083% Nebulizer Soln -) 1 amp NEB Q4H PRN PRN Reason: SHORT OF BREATH/WHEEZING Last Admin: 04/13/19 03:50 Dose: 1 amp Albuterol/Ipratropium (Duoneb -) 1 amp NEB RQID [facility] Last Admin: 04/12/19 20:21 Dose: 1 amp Atorvastatin Calcium (Lipitor -) 10 mg PO HS [facility] Last Admin: 04/12/19 21:34 Dose: Not Given Bupropion HCl (Wellbutrin Xl -) 300 mg PO DAILY [facility] Last Admin: 04/12/19 10:01 Dose: 300 mg Diltiazem HCl 180 mg/ (Diltiazem HCl 120 mg) 300 mg PO DAILY [facility] Last Admin: 04/12/19 10:00 Dose: 300 mg Docusate Sodium (Colace -) 100 mg PO DAILY [facility] Last Admin: 04/12/19 10:01 Dose: 100 mg Gabapentin (Neurontin -) 600 mg PO DAILY [facility] Last Admin: 04/12/19 10:01 Dose: 600 mg Melatonin (Melatonin) 5 mg PO HS PRN PRN Reason: INSOMNIA Last Admin: 04/12/19 21:33 Dose: 5 mg Methylprednisolone Sodium Succinate (Solu-Medrol -) 40 mg IVPUSH BID [facility] Last Admin: 04/12/19 21:32 Dose: 40 mg Pantoprazole Sodium (Protonix Iv) 40 mg IVPUSH BID [facility] Last Admin: 04/12/19 21:32 Dose: 40 mg Polyethylene Glycol (Miralax (For Daily Use) -) 17 gm PO BID [facility] Last Admin: 04/12/19 21:33 Dose: 17 gm Rivaroxaban (Xarelto) 20 mg PO DAILY [facility] Last Admin: 04/12/19 10:01 Dose: 20 mg Senna (Senna -) 1 tab PO BID [facility] Last Admin: 04/12/19 21:32 Dose: 1 tab Sodium Chloride ([place] Nasal [place] -) 2 spray NS TID PRN PRN Reason: NASAL CONGESTION Last Admin: 04/08/19 21:00 Dose: 2 spray - Objective Vital Signs: Vital Signs Temperature 97.6 F 04/13/19 06:00 Pulse Rate 111 H 04/13/19 06:00 Respiratory Rate 19 04/13/19 06:00 Blood Pressure 113/68 04/13/19 06:00 O2 Sat by Pulse Oximetry (%) 90 L 04/12/19 21:00 Constitutional: Yes: No Distress, Calm Eyes: Yes: Conjunctiva Clear HENT: Yes: Atraumatic Cardiovascular: Yes: Tachycardia, Pulse Irregular Respiratory: Yes: Regular, On Nasal O2, Wheezes Gastrointestinal: Yes: Normal Bowel Sounds, Soft Neurological: Yes: Alert, Oriented Psychiatric: Yes: Alert, Oriented Labs: CBC, BMP 04/13/19 05:40 04/13/19 05:40 INR, PTT INR 1.29 (0.83-1.09) H 04/09/19 19:50 Problem List - Problems (1) Elevated LFTs Assessment/Plan: -will need to follow up as an outpatient with Dr Henry for chronic liver work- up Code(s): R94.5 - ABNORMAL RESULTS OF LIVER FUNCTION STUDIES (2) Abdominal pain Assessment/Plan: -pain has improved -patient will need to follow up with Dr Henry as outpatient for further management -patient will need an EGD to rule out source of abdominal pain when medically optimized whether in-patient or outpatient Code(s): R10.9 - UNSPECIFIED ABDOMINAL PAIN Qualifiers: Abdominal location: upper abdomen, unspecified Qualified Code(s): R10.10 - Upper abdominal pain, unspecified (3) Unintentional weight loss Assessment/Plan: -discussed with Dr Henry Abd US results showing pancreatic duct at 2mm, no need to order Ca 19-9 at present due to pancreatic duct being within normal range (1-3mm) -will need to have EGD and colonoscopy as an outpatient with Dr Henry Code(s): R63.4 - ABNORMAL WEIGHT LOSS
[2019-04-13] MEDS: DILTIAZEM CD 180 MG, DILTIAZEM CD 120 MG PO SCH (09:05)
[2019-04-13] MEDS: RIVAROXABAN 20 MG TABLET PO SCH (09:06)
[2019-04-13] MEDS: PANTOPRAZOLE SODIUM 40 MG VIAL IVPUSH SCH ×2 (09:10→21:30)
[2019-04-13] MEDS: methylPREDNISolone NA SUCC 40 MG/1 ML VIAL IVPUSH SCH ×2 (09:10→21:37)
[2019-04-13] MEDS: GABAPENTIN 300 MG CAPSULE PO SCH (09:16)
[2019-04-13] MEDS: SENNOSIDES 8.6MG TABLET (FP) PO SCH ×2 (11:37→21:38)
[2019-04-13] MEDS: POLYETHYLENE GLYCOL 3350 119 GM BTL PO SCH ×2 (11:38→21:38)
[2019-04-13] MEDS: DOCUSATE SODIUM 100 MG CAPSULE (FP) PO SCH (11:38)
--- NOTE | 2019-04-13 13:06 | PN ---
Progress Note, Physician Chief Complaint: Pt A&Ox3 just returned from CT chest. Still dyspneic on mild exertion; no chest pain. He feels less nervous and does not crave cigarettes since starting on Wellbutrin this admission. History of Present Illness: The patient is a 63 year old white man, with a significant PMH of Afib (on diltiazem and Xarelto), COPD (denies asthma; tolerated beta blockers for AF in the past, but stopped due to ?"bleed"; per , pt refuses to use prescribed home O2), polycythemia vera (last phlebotomy was 2 years ago), RAINER/RLS (on CPAP) , and anxiety/depression/panic, who presents to the ED for evaluation of abdominal pain for 2 weeks. Patient complains of diffuse upper abdominal pain, which has been chronic over the past two years but has become progressively worse over the past two weeks. He notes the pain is onset typically ~20-30 minutes after eating, and lasts for ~2 hours. His pain is exacerbated with eating solid foods, specifically meats. Patient notes he has been unable to sleep secondary to the pain. He additionally states that his food goes down slower than normal, and his bowel movements are smaller than typical. He denies any current abdominal pain while in the ED, but notes he was experiencing it a few hours ago after he ate breakfast. Planned now for EGD. Pt does report chronic shortness of breath, chest tightness and wheezing. Reports an unintentional weight loss of 20lbs over the past month. He uses Stiolto and albuterol at home. He started smoking at age 17, smoked as much as 2 PPD and still currently smokes. He was placed on prednisone about 2 weeks ago with improvement in dyspnea. Never been on steroids prior to that. Denies hx seizures. patient additionally complains of bilateral LE edema for the past 2 days. Pt says he had a coronary angiogram about 7 yrs ago at [facility]: nonobstructive disease, but "something in the lower part was not right: congenital". He has had several stress tests since, the latest about a year ago , and all reportedly not requiring further workup or therapy. Attends pulmonary clinic at [place]. On rivaroxaban 20 mg daily; had an episode of bleeding years ago, but not since. He is also on ASA 81 mg daily (ever since coronary angiogram). PMD: Dr. Ball Cardio: Dr. Cast ([place]) Pulm: - Current Medication List Current Medications: Active Medications Albuterol Sulfate (Ventolin 0.083% Nebulizer Soln -) 1 amp NEB Q4H PRN PRN Reason: SHORT OF BREATH/WHEEZING Last Admin: 04/13/19 03:50 Dose: 1 amp Albuterol/Ipratropium (Duoneb -) 1 amp NEB RQID [facility] Last Admin: 04/13/19 11:39 Dose: 1 amp Atorvastatin Calcium (Lipitor -) 10 mg PO HS [facility] Last Admin: 04/12/19 21:34 Dose: Not Given Bupropion HCl (Wellbutrin Xl -) 300 mg PO DAILY [facility] Last Admin: 04/13/19 11:38 Dose: 300 mg Diltiazem HCl 180 mg/ (Diltiazem HCl 120 mg) 300 mg PO DAILY [facility] Last Admin: 04/13/19 09:05 Dose: 300 mg Docusate Sodium (Colace -) 100 mg PO DAILY [facility] Last Admin: 04/13/19 11:38 Dose: 100 mg Gabapentin (Neurontin -) 600 mg PO HS [facility] Melatonin (Melatonin) 5 mg PO HS PRN PRN Reason: INSOMNIA Last Admin: 04/12/19 21:33 Dose: 5 mg Methylprednisolone Sodium Succinate (Solu-Medrol -) 40 mg IVPUSH BID [facility] Last Admin: 04/13/19 09:10 Dose: 40 mg Pantoprazole Sodium (Protonix Iv) 40 mg IVPUSH BID [facility] Last Admin: 04/13/19 09:10 Dose: 40 mg Polyethylene Glycol (Miralax (For Daily Use) -) 17 gm PO BID [facility] Last Admin: 04/13/19 11:38 Dose: 17 gm Rivaroxaban (Xarelto) 20 mg PO DAILY [facility] Last Admin: 04/13/19 09:06 Dose: 20 mg Senna (Senna -) 1 tab PO BID [facility] Last Admin: 04/13/19 11:37 Dose: 1 tab Sodium Chloride ([place] Nasal [place] -) 2 spray NS TID PRN PRN Reason: NASAL CONGESTION Last Admin: 04/08/19 21:00 Dose: 2 spray - Objective Vital Signs: Vital Signs Temperature 97.9 F 04/13/19 09:15 Pulse Rate 115 H 04/13/19 09:15 Respiratory Rate 04/13/19 09:15 Blood Pressure 113/59 L 04/13/19 09:15 O2 Sat by Pulse Oximetry (%) 92 L 04/13/19 09:00 Constitutional: Yes: Anxious Eyes: Yes: WNL HENT: Yes: WNL Neck: Yes: WNL Cardiovascular: Yes: Pulse Irregular, S1 (varies in intensity) Respiratory: Yes: On Nasal O2 Gastrointestinal: Yes: Soft, Abdomen, Obese ...Rectal Exam: Yes: Deferred Genitourinary: No: Anuria Breast(s): Yes: WNL Musculoskeletal: Yes: Muscle Weakness Extremities: Yes: WNL Edema: No Peripheral Pulses WNL: Yes Integumentary: Yes: WNL Neurological: Yes: Alert, Oriented, Weakness Psychiatric: Yes: Alert, Oriented Labs: CBC, BMP 04/13/19 05:40 04/13/19 05:40 INR, PTT INR 1.29 (0.83-1.09) H 04/09/19 19:50 Abnormal Lab Results 04/13/19 04/13/19 05:40 05:40 WBC 14.8 H RBC 5.85 H Hgb 17.1 H Hct 52.3 H Chloride 97 L Carbon Dioxide 33 H Anion Gap 6 L BUN 28.1 H Random Glucose 168 H Total Bilirubin 1.3 H ALT 122 H Total Protein 5.7 L Albumin 3.0 L - ....Imaging Cat Scan: Image Reviewed (Ct chest: ?septic emboli vs tumor) Problem List - Problems (1) COPD exacerbation Assessment/Plan: CT chest: ? septic emboli. As reviewed with Dr. Velazquez, cannot exclude cancerous process. Pt will require close followup for decision-making regarding these findings. Code(s): J44.1 - CHRONIC OBSTRUCTIVE PULMONARY DISEASE W (ACUTE) EXACERBATION (2) Ventral hernia Code(s): K43.9 - VENTRAL HERNIA WITHOUT OBSTRUCTION OR GANGRENE (3) Anxiety and depression Assessment/Plan: Now on Wellbutrin for anxiety and as aid to stop smoking; he says it has improved his mood, and has no craving to smoke. Code(s): F41.9 - ANXIETY DISORDER, UNSPECIFIED; F32.9 - MAJOR DEPRESSIVE DISORDER, SINGLE EPISODE, UNSPECIFIED (4) Smokes cigarettes Assessment/Plan: Pt was on nicotine patch, but kept removing it and smoking. Smokes a pack a day or more again. Now on Wellbutrin (for anxiety/derpression and cigarettes; denies hx seizures). Code(s): F17.210 - NICOTINE DEPENDENCE, CIGARETTES, UNCOMPLICATED (5) [place] cardiac risk >20% in next 10 years Assessment/Plan: 1st TNI < 0.02 x 2. EKG: AF with RVR Telemetry: AF; controlled VR. Addendum: I called pt's bankruptcy judge, Dr. Cast, and spoke to his PA, Jaylin. Coronary angiogram 02/2011: patent coronary arteries. Pt had stress treadmill MIBI 12/2017 that showed no evidence of myocardial ischemia; walked 4:43 minutes on Justin protocol. Will continue rivaroxaban (AF) but hold ASA. As discussed with Jaylin, the decision whether to restart it will be taken when he sees their team again. (He had a bleed while on both agents, though he thinks it was from beta asher that was given to slow AF with RVR that had developed during the stress test). Code(s): Z91.89 - OTH PERSONAL RISK FACTORS, NOT ELSEWHERE CLASSIFIED (6) Abdominal pain Assessment/Plan: GI workup noted. Code(s): R10.9 - UNSPECIFIED ABDOMINAL PAIN Qualifiers: Abdominal location: upper abdomen, unspecified Qualified Code(s): R10.10 - Upper abdominal pain, unspecified (7) Hypoxia Code(s): R09.02 - HYPOXEMIA (8) Polycythemia rubra vera Code(s): D45 - POLYCYTHEMIA VERA (9) Atrial fibrillation with rapid ventricular response Assessment/Plan: Continue diltiazem for HR control. F/u EKG; telemetry. Rivaroxaban restarted. ECHO: mildly reduced LVEF; mild LAE. Code(s): I48.91 - UNSPECIFIED ATRIAL FIBRILLATION (10) Hyperlipidemia Assessment/Plan: Start statin, and keep LDL < 70 mg/dL. Code(s): E78.5 - HYPERLIPIDEMIA, UNSPECIFIED (11) Systolic CHF Assessment/Plan: ECHO: mildly reduced LVEF (45-50%). On diltiazem CD for AF HR control (pt was given beta blockers in 2017, when he developed AF with RVR; the HR was controlled, but days later he had GI bleed. He blames it on the beta asher, and is afraid to restart them. He denies hx asthma). Start lisinopril 2.5 mg daily. F/u BUN/Cr, electrolytes, daily weight, Is and Os. Code(s): I50.20 - UNSPECIFIED SYSTOLIC (CONGESTIVE) HEART FAILURE
--- NOTE | 2019-04-13 13:44 | PN ---
Progress Note (short form) - Note Progress Note: Breathing feels a little better today. Less cough and wheezing. CT Chest: bibasilar infiltrates likely atelectasis / non-specific 1.3 cm posterior segment RICCO and superior segment LLL opacities Intake & Output 04/10/19 04/11/19 04/12/19 04/13/19 23:59 23:59 23:59 23:59 Intake Total 1270 1320 360 370 Output Total 1050 1200 2550 Balance 1270 270 -840 -2180 Last Vital Signs Temp Pulse Resp BP Pulse Ox 97.9 F 115 H 20 113/59 L 92 L 04/13/19 09:15 04/13/19 09:15 04/13/19 09:15 04/13/19 09:15 04/13/19 09:00 Active Medications Albuterol Sulfate (Ventolin 0.083% Nebulizer Soln -) 1 amp NEB Q4H PRN PRN Reason: SHORT OF BREATH/WHEEZING Last Admin: 04/13/19 03:50 Dose: 1 amp Albuterol/Ipratropium (Duoneb -) 1 amp NEB RQID [facility] Last Admin: 04/13/19 11:39 Dose: 1 amp Atorvastatin Calcium (Lipitor -) 10 mg PO HS [facility] Last Admin: 04/12/19 21:34 Dose: Not Given Bupropion HCl (Wellbutrin Xl -) 300 mg PO DAILY [facility] Last Admin: 04/13/19 11:38 Dose: 300 mg Diltiazem HCl 180 mg/ (Diltiazem HCl 120 mg) 300 mg PO DAILY [facility] Last Admin: 04/13/19 09:05 Dose: 300 mg Docusate Sodium (Colace -) 100 mg PO DAILY [facility] Last Admin: 04/13/19 11:38 Dose: 100 mg Gabapentin (Neurontin -) 600 mg PO HS [facility] Melatonin (Melatonin) 5 mg PO HS PRN PRN Reason: INSOMNIA Last Admin: 04/12/19 21:33 Dose: 5 mg Methylprednisolone Sodium Succinate (Solu-Medrol -) 40 mg IVPUSH BID [facility] Last Admin: 04/13/19 09:10 Dose: 40 mg Pantoprazole Sodium (Protonix Iv) 40 mg IVPUSH BID [facility] Last Admin: 04/13/19 09:10 Dose: 40 mg Polyethylene Glycol (Miralax (For Daily Use) -) 17 gm PO BID [facility] Last Admin: 04/13/19 11:38 Dose: 17 gm Rivaroxaban (Xarelto) 20 mg PO DAILY [facility] Last Admin: 04/13/19 09:06 Dose: 20 mg Senna (Senna -) 1 tab PO BID [facility] Last Admin: 04/13/19 11:37 Dose: 1 tab Sodium Chloride ([place] Nasal [place] -) 2 spray NS TID PRN PRN Reason: NASAL CONGESTION Last Admin: 04/08/19 21:00 Dose: 2 spray Gen: less tachypneic Heart: RRR Lung: distant breath sounds Abd: soft, nontender Ext: no edema Laboratory Results - last 24 hr 04/13/19 04/13/19 04/13/19 05:40 05:40 05:40 WBC 14.8 H RBC 5.85 H Hgb 17.1 H Hct 52.3 H MCV 89.4 MCH 29.3 MCHC 32.7 RDW 14.7 Plt Count 140 MPV 8.0 PTT (Actin FS) 27.1 Sodium 137 Potassium 4.7 Chloride 97 L Carbon Dioxide 33 H Anion Gap 6 L BUN 28.1 H Creatinine 1.1 Est GFR (CKD-EPI)AfAm 82.95 Est GFR (CKD-EPI)NonAf 71.57 Random Glucose 168 H Calcium 8.6 Total Bilirubin 1.3 H AST 34 ALT 122 H Alkaline Phosphatase 63 Total Protein 5.7 L Albumin 3.0 L A/P Acute COPD Exacerbation Obstructive Sleep Apnea Anxiety Atrial Fibrillation Unintentional Weight Loss/Failure to Thrive Smoker - Medrol q12h: can likely change to Prednisone in next 24 to 48 hours - inhaled bronchodilators standing and PRN - O2 to keep Spo2 >90% - CPAP at night - rate control - continue anticoagulation - smoking cessation discussed - would defer elective invasive procedures until as an outpatient Dr Velazquez
--- NOTE | 2019-04-13 14:16 | PN ---
Physical Exam: SUBJECTIVE: Patient seen and examined at bedside. Overnight there were no acute events. This am he says his breathing is the same and he re-asserts that he always has a home 02 sat of 90-92%. He is aware of goal of pre/post today. He is now passing BM w/o complaint. OBJECTIVE: Vital Signs Temp Pulse Resp BP Pulse Ox 97.9 F 77 17 119/68 94 L 04/13/19 14:00 04/13/19 14:04/13/19 14:04/13/19 14:04/13/19 12:30 GENERAL: AOx3, in no acute distress. HEAD: NCAT EYES: ISAI, EOMI, conjunctiva clear. ENT: Ears normal, nares patent, oropharynx clear without exudates. Moist mucous membranes. NECK: Normal range of motion, supple without lymphadenopathy, JVD, or masses. LUNGS: CTAB. RIGHT posterior field end expiratory wheezes, and no crackles. No accessory muscle use. Saturating at 90% on humidified 4L NC. HEART: RRR s1 s2 ABDOMEN: Soft, BS present in all 4 quadrants, non-distended, no JVD, MUSCULOSKELETAL: No bony deformities or tenderness. No CVA tenderness. UPPER EXTREMITIES: 2+ pulses, warm, well-perfused. No cyanosis. No clubbing. No peripheral edema. LOWER EXTREMITIES: 2+ pulses, warm, well-perfused. No calf tenderness. No peripheral edema. NEUROLOGICAL: No focal deficits. Cranial nerves II-XII intact. Normal speech. Gait not appreciated. PSYCHIATRIC: Cooperative. Good eye contact. Appropriate mood and affect. SKIN: Very hairy, warm, dry, normal turgor, no rashes or lesions noted, normal capillary refill. Laboratory Results - last 24 hr 04/13/19 04/13/19 04/13/19 05:40 05:40 05:40 WBC 14.8 H RBC 5.85 H Hgb 17.1 H Hct 52.3 H MCV 89.4 MCH 29.3 MCHC 32.7 RDW 14.7 Plt Count 140 MPV 8.0 PTT (Actin FS) 27.1 Sodium 137 Potassium 4.7 Chloride 97 L Carbon Dioxide 33 H Anion Gap 6 L BUN 28.1 H Creatinine 1.1 Est GFR (CKD-EPI)AfAm 82.95 Est GFR (CKD-EPI)NonAf 71.57 Random Glucose 168 H Calcium 8.6 Total Bilirubin 1.3 H AST 34 ALT 122 H Alkaline Phosphatase 63 Total Protein 5.7 L Albumin 3.0 L Active Medications Albuterol Sulfate (Ventolin 0.083% Nebulizer Soln -) 1 amp NEB Q4H PRN PRN Reason: SHORT OF BREATH/WHEEZING Last Admin: 04/13/19 03:50 Dose: 1 amp Albuterol/Ipratropium (Duoneb -) 1 amp NEB RQID [facility] Last Admin: 04/13/19 11:39 Dose: 1 amp Atorvastatin Calcium (Lipitor -) 10 mg PO HS [facility] Last Admin: 04/12/19 21:34 Dose: Not Given Bupropion HCl (Wellbutrin Xl -) 300 mg PO DAILY [facility] Last Admin: 04/13/19 11:38 Dose: 300 mg Diltiazem HCl 180 mg/ (Diltiazem HCl 120 mg) 300 mg PO DAILY [facility] Last Admin: 04/13/19 09:05 Dose: 300 mg Docusate Sodium (Colace -) 100 mg PO DAILY [facility] Last Admin: 04/13/19 11:38 Dose: 100 mg Gabapentin (Neurontin -) 600 mg PO HS [facility] Melatonin (Melatonin) 5 mg PO HS PRN PRN Reason: INSOMNIA Last Admin: 04/12/19 21:33 Dose: 5 mg Methylprednisolone Sodium Succinate (Solu-Medrol -) 40 mg IVPUSH BID [facility] Last Admin: 04/13/19 09:10 Dose: 40 mg Pantoprazole Sodium (Protonix Iv) 40 mg IVPUSH BID [facility] Last Admin: 04/13/19 09:10 Dose: 40 mg Polyethylene Glycol (Miralax (For Daily Use) -) 17 gm PO BID [facility] Last Admin: 04/13/19 11:38 Dose: 17 gm Rivaroxaban (Xarelto) 20 mg PO DAILY [facility] Last Admin: 04/13/19 09:06 Dose: 20 mg Senna (Senna -) 1 tab PO BID [facility] Last Admin: 04/13/19 11:37 Dose: 1 tab Sodium Chloride ([place] Nasal [place] -) 2 spray NS TID PRN PRN Reason: NASAL CONGESTION Last Admin: 04/08/19 21:00 Dose: 2 spray ASSESSMENT/PLAN: 63 y/o male PMH COPD, RAINER, polycythemia vera, RLS, anxiety, arthritis, and afib came in c/o abdominal pain that has resolved on its own. His a-fib has been under control. BM now achieved. He breathing is stable/improving slowly. Transaminitis noted and presumptively GI w/u may be done out-pt per in person discussion with LOR Haley; though must be discussed fully. Primary concern is supp 02 adherence. # COPD - CT shows LEFT sided cavitation possibly consistent with adenocarcinoma though would need complete w/u. Pt adimant about returning to [facility] to see Dr. Isak Gregorio MD of pulmonology. A physical copy of his imaging (CD) was provided. - Pre/post: req 4L NC - Solumedrol 40 mg iv BID but considering PO tomorrow - Duonebs patience, albuterol prn # A-fib - Less tachycardia and no RVR - Cont. 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 Pt states Hct goal is 55. # RAINER - CPAP HS # F/E/N - PO - Cont. to monitor - Regular diet # DVT prophylaxis - On Xarelto # Disposition - Telemetry - F/u out-pt: 1.3 cm R. hepatic cyst Ernesto Bennett MD Visit type - Emergency Visit Emergency Visit: No - New Patient This patient is new to me today: No - Critical Care Critical Care patient: No ATTENDING PHYSICIAN STATEMENT I saw and evaluated the patient. I reviewed the resident's note and discussed the case with the resident. I agree with the resident's findings and plan as documented. SUBJECTIVE: OBJECTIVE: ASSESSMENT AND PLAN:
--- NOTE | 2019-04-13 15:15 | PN ---
Teaching Attending Note Name of Resident: Ernesto Bennett ATTENDING PHYSICIAN STATEMENT I saw and evaluated the patient. I reviewed the resident's note and discussed the case with the resident. I agree with the resident's findings and plan as documented. SUBJECTIVE: Patient is feeling better but continues to desaturate , needing oxygen. OBJECTIVE: Vital Signs Temperature 97.9 F 04/13/19 14:00 Pulse Rate 77 04/13/19 14:00 Respiratory Rate 17 04/13/19 14:00 Blood Pressure 119/68 04/13/19 14:00 O2 Sat by Pulse Oximetry (%) 92 L 04/13/19 09:00 GENERAL: The patient is awake, alert, and fully oriented, in no acute distress. HEAD: Normal with no signs of trauma. EYES: PERRL, extraocular movements intact, sclera anicteric, conjunctiva clear. ENT: Ears normal, oropharynx clear without exudates, moist mucous membranes. NECK: Trachea midline, full range of motion, supple. LUNGS: Breath sounds equal, clear to auscultation bilaterally, no wheezes, no crackles, no accessory muscle use. HEART: Regular rate and rhythm, S1, S2 without murmur, rub or gallop. ABDOMEN: Soft, nontender, nondistended, normoactive bowel sounds, no guarding, no rebound, no hepatosplenomegaly, no masses. EXTREMITIES: 2+ pulses, warm, well-perfused, no edema. NEUROLOGICAL: Cranial nerves II through XII grossly intact. Normal speech, gait not observed. PSYCH: Normal mood, normal affect. SKIN: Warm, dry, normal turgor, no rashes or lesions noted CBCD WBC 14.8 K/mm3 (4.0-10.0) H 04/13/19 05:40 RBC 5.85 M/mm3 (4.00-5.60) H 04/13/19 05:40 Hgb 17.1 GM/dL (11.7-16.9) H 04/13/19 05:40 Hct 52.3 % (35.4-49) H 04/13/19 05:40 MCV 89.4 fl (80-96) 04/13/19 05:40 MCHC 32.7 g/dl (32.0-35.9) 04/13/19 05:40 RDW 14.7 % (11.9-15.9) 04/13/19 05:40 Plt Count 140 K/MM3 (134-434) 04/13/19 05:40 MPV 8.0 fl (7.5-11.1) 04/13/19 05:40 CMP Sodium 137 mmol/L (136-145) 04/13/19 05:40 Potassium 4.7 mmol/L (3.5-5.1) 04/13/19 05:40 Chloride 97 mmol/L (98-107) L 04/13/19 05:40 Carbon Dioxide 33 mmol/L (21-32) H 04/13/19 05:40 Anion Gap 6 MMOL/L (8-16) L 04/13/19 05:40 BUN 28.1 mg/dL (7-18) H 04/13/19 05:40 Creatinine 1.1 mg/dL (0.55-1.3) 04/13/19 05:40 Random Glucose 168 mg/dL (74-106) H 04/13/19 05:40 Calcium 8.6 mg/dL (8.5-10.1) 04/13/19 05:40 Total Bilirubin 1.3 mg/dL (0.2-1) H 04/13/19 05:40 AST 34 U/L (15-37) 04/13/19 05:40 ALT 122 U/L (13-61) H 04/13/19 05:40 Alkaline Phosphatase 63 U/L (45-117) 04/13/19 05:40 Total Protein 5.7 g/dl (6.4-8.2) L 04/13/19 05:40 Albumin 3.0 g/dl (3.4-5.0) L 04/13/19 05:40 CARDIAC ENZYMES Creatine Kinase 110 U/L (26-308) 04/08/19 06:28 Troponin I < 0.02 ng/ml (0.00-0.05) 04/08/19 06:28 Current Medications Generic Name Dose Route Start Last Admin Trade Name Freq PRN Reason Stop Dose Admin Albuterol Sulfate 1 amp 04/10/19 15:12 04/13/19 03:50 Ventolin 0.083% Nebulizer Soln - NEB 1 amp Q4H PRN Administration SHORT OF BREATH/WHEEZING Albuterol/Ipratropium 1 amp 04/10/19 16:00 04/13/19 11:39 Duoneb - NEB 1 amp RQID BEAU Administration Atorvastatin Calcium 10 mg 04/08/19 22:00 04/12/19 21:34 Lipitor - PO Not Given HS [facility] Bupropion HCl 300 mg 04/11/19 10:00 04/13/19 11:38 Wellbutrin Xl - PO 300 mg DAILY BEAU Administration Diltiazem HCl 180 mg/ 300 mg 04/10/19 10:00 04/13/19 09:05 Diltiazem HCl 120 mg PO 300 mg DAILY BEAU Administration Docusate Sodium 100 mg 04/10/19 10:00 04/13/19 11:38 Colace - PO 100 mg DAILY BEAU Administration Gabapentin 600 mg 04/13/19 22:00 Neurontin - PO HS [facility] Melatonin 5 mg 04/09/19 22:00 04/12/19 21:33 Melatonin PO 5 mg HS PRN Administration INSOMNIA Methylprednisolone Sodium Succinate 40 mg 04/11/19 22:00 04/13/19 09:10 Solu-Medrol - IVPUSH 40 mg BID BEAU Administration Pantoprazole Sodium 40 mg 04/07/19 22:00 04/13/19 09:10 Protonix Iv IVPUSH 40 mg BID BEAU Administration Polyethylene Glycol 17 gm 04/11/19 12:15 04/13/19 11:38 Miralax (For Daily Use) - PO 17 gm BID [facility] Administration Rivaroxaban 20 mg 04/09/19 17:30 04/13/19 09:06 Xarelto PO 20 mg DAILY [facility] Administration Senna 1 tab 04/12/19 10:00 04/13/19 11:37 Senna - PO 1 tab BID [facility] Administration Sodium Chloride 2 spray 04/08/19 11:11 04/08/19 21:00 [place] - NS 2 spray TID PRN Administration NASAL CONGESTION Home Medications Medication Instructions Recorded Albuterol 2.5/Ipratropium 0.5 1 neb NEB Q4H 04/07/19 [Duoneb -] Albuterol Sulfate [Proair Hfa] 8.5 gm IH DAILY 04/07/19 Diltiazem HCl [Diltiazem 24Hr Cd] 180 mg PO HS 04/07/19 Gabapentin 600 mg PO BID 04/07/19 Rivaroxaban [Xarelto -] 20 mg PO DAILY 04/07/19 Tiotropium Br/Olodaterol HCl 2.5 mcg IH DAILY 04/07/19 [Stiolto Respimat Inhal [place]] Diltiazem HCl [Diltiazem ER] 120 mg PO HS 04/08/19 Aspirin [ASA -] 81 mg PO DAILY 04/10/19 CT Chest: bibasilar infiltrates likely atelectasis / non-specific 1.3 cm posterior segment RICCO and superior segment LLL opacities CT abdomen and pelvis:mild to moderate enlargement of prostate, with 1x0.5cm urinary bladde polypoid lesion along the posterolateral aspect of the urinary bladder. ASSESSMENT AND PLAN: Pt. is a 63 y.o. F w/ PMHx. of Afib (on Xarelto), COPD (not on home O2 by choice ), Polycythemia vera ( last phlebotomy 2 years ago), RLS, Anxiety and Arthritis presents for abdominal pain that has been worsening over the last 2 weeks. #ACUTE COPD EXACERBATION : continue nebulizers, on IV steroids continue , pulmonary appreciated will discuss with pulm . #Abdominal Pain resolved: Abd.US negative for gall stones, shows fatty liver, 1.3 cm R. hepatic cyst, pancreatic duct 2mm. #aFIB with RVR: continue XARELTO , CARDIZEM, nost likely due to nebulizer treatments. #Polycythemia : ON OXYGEN 2 LITER , O2 to keep Spo2 >90%, saturation 89% on oxygen, pre and post in am as well. #Obstructive Sleep Apnea: CPAP at night, continue oxygen #Anxiety DISORDER: continue home meds. #Smoker: smoking cessation discuss dvT PX: xarelto PER PULMONARY : TO defer elective invasive procedures at this time until acute exacerbation improvesDiscussed CT findings with the patient. He has an Discussed with Pulmonary , patient has an appointment with his Philosophy Lecturer on the . please dc patient with the CD of his CT of the chest Ct of the chest RICCO & LLL lesions. Radiographically can represent Adenocarcinoma in situ AIS. (discussed with Pulmonary) patient needs oxygen to go home with , SW is working on it.
[2019-04-13] MEDS: ATORVASTATIN CA 10 MG TABLET (FP) PO SCH (21:38)
[2019-04-13] MEDS: MELATONIN 5 MG TABLETS PO PRN (21:38)
[2019-04-13] MEDS ORDERED: GABAPENTIN 300 MG CAPSULE PO SCH (22:00)
[2019-04-14] MEDS: ALBUTEROL SO4 0.083% IH SOL 2.5 MG/3 ML VIAL.NEB. NEB PRN (00:08)
[2019-04-14] MEDS: ALBUTEROL SO4 2.5/IPRATROPIUM 0.5 INH SOL 3 ML VIAL.NEB. NEB SCH ×3 (08:00→15:41)
[2019-04-14] MEDS: SENNOSIDES 8.6MG TABLET (FP) PO SCH (09:06)
[2019-04-14] MEDS: RIVAROXABAN 20 MG TABLET PO SCH (09:06)
[2019-04-14] MEDS: DILTIAZEM CD 180 MG, DILTIAZEM CD 120 MG PO SCH (09:07)
[2019-04-14] MEDS: methylPREDNISolone NA SUCC 40 MG/1 ML VIAL IVPUSH SCH (09:11)
[2019-04-14] MEDS: PANTOPRAZOLE SODIUM 40 MG VIAL IVPUSH SCH (09:11)
[2019-04-14] MEDS: DOCUSATE SODIUM 100 MG CAPSULE (FP) PO SCH (09:13)
[2019-04-14] MEDS: POLYETHYLENE GLYCOL 3350 119 GM BTL PO SCH (09:14)
[2019-04-14 09:28] VITALS: PULSE 75
[2019-04-14] MEDS ORDERED: LISINOPRIL 5 MG TABLET (FP) PO SCH (10:00)
--- NOTE | 2019-04-14 13:25 | PN ---
Progress Note, Physician History of Present Illness: The patient is a 63 year old white man, with a significant PMH of Afib (on diltiazem and Xarelto), COPD (denies asthma; tolerated beta blockers for AF in the past; per , pt refuses to use prescribed home O2),, polycythemia vera ( last phlebotomy was 2 years ago), RAINER/RLS (on CPAP), and anxiety/depression/ panic, who presents to the ED for evaluation of abdominal pain for 2 weeks. Patient complains of diffuse upper abdominal pain, which has been chronic over the past two years but has become progressively worse over the past two weeks. He notes the pain is onset typically ~20-30 minutes after eating, and lasts for ~2 hours. His pain is exacerbated with eating solid foods, specifically meats. Patient notes he has been unable to sleep secondary to the pain. He additionally states that his food goes down slower than normal, and his bowel movements are smaller than typical. He denies any current abdominal pain while in the ED, but notes he was experiencing it a few hours ago after he ate breakfast. Planned now for EGD. Pt does report chronic shortness of breath, chest tightness and wheezing. Reports an unintentional weight loss of 20lbs over the past month. He uses Stiolto and albuterol at home. He started smoking at age 17, smoked as much as 2 PPD and still currently smokes. He was placed on prednisone about 2 weeks ago with improvement in dyspnea. Never been on steroids prior to that. Denies hx seizures. patient additionally complains of bilateral LE edema for the past 2 days. Pt says [facility] nonobstructive disease, but "something in the lower part was not right". He has had severeal stress tests since, the latest about a year ago. Attends [facility] at [place]. On rivaroxaban 20 mg daily; had an episode of bleeding years ago, but not since. PMD: Dr. Ball Cardio: Dr. Cast ([place]) - Current Medication List Current Medications: Active Medications Albuterol Sulfate (Ventolin 0.083% Nebulizer Soln -) 1 amp NEB Q4H PRN PRN Reason: SHORT OF BREATH/WHEEZING Last Admin: 02/05/20 00:08 Dose: 1 amp Albuterol/Ipratropium (Duoneb -) 1 amp NEB RQID [facility] Last Admin: 04/14/19 12:29 Dose: 1 amp Atorvastatin Calcium (Lipitor -) 10 mg PO HS [facility] Last Admin: 04/13/19 21:38 Dose: Not Given Bupropion HCl (Wellbutrin Xl -) 300 mg PO DAILY [facility] Last Admin: 04/14/19 09:06 Dose: 300 mg Diltiazem HCl 180 mg/ (Diltiazem HCl 120 mg) 300 mg PO DAILY [facility] Last Admin: 04/14/19 09:07 Dose: 300 mg Docusate Sodium (Colace -) 100 mg PO DAILY [facility] Last Admin: 04/14/19 09:13 Dose: 100 mg Gabapentin (Neurontin -) 600 mg PO HS [facility] Last Admin: 04/13/19 21:37 Dose: 600 mg Lisinopril (Prinivil) 2.5 mg PO DAILY [facility] Last Admin: 04/14/19 09:24 Dose: 2.5 mg Melatonin (Melatonin) 5 mg PO HS PRN PRN Reason: INSOMNIA Last Admin: 04/13/19 21:38 Dose: 5 mg Methylprednisolone Sodium Succinate (Solu-Medrol -) 40 mg IVPUSH BID [facility] Last Admin: 04/14/19 09:11 Dose: 40 mg Pantoprazole Sodium (Protonix Iv) 40 mg IVPUSH BID [facility] Last Admin: 04/14/19 09:11 Dose: 40 mg Polyethylene Glycol (Miralax (For Daily Use) -) 17 gm PO BID [facility] Last Admin: 04/14/19 09:14 Dose: 17 gm Rivaroxaban (Xarelto) 20 mg PO DAILY [facility] Last Admin: 04/14/19 09:06 Dose: 20 mg Senna (Senna -) 1 tab PO BID [facility] Last Admin: 04/14/19 09:06 Dose: 1 tab Sodium Chloride ([place] -) 2 spray NS TID PRN PRN Reason: NASAL CONGESTION Last Admin: 04/08/19 21:00 Dose: 2 spray - Objective Vital Signs: Vital Signs Temperature 98.1 F 04/14/19 09:27 Pulse Rate 75 04/14/19 09:27 Respiratory Rate 20 04/14/19 09:27 Blood Pressure 128/63 04/14/19 09:27 O2 Sat by Pulse Oximetry (%) 92 L 04/14/19 09:28 Eyes: Yes: WNL, Conjunctiva Clear, EOM Intact HENT: Yes: WNL, Atraumatic, Normocephalic Neck: Yes: WNL, Supple, Trachea Midline Cardiovascular: Yes: Pulse Irregular, S1, S2 Respiratory: Yes: WNL, Regular, CTA Bilaterally Gastrointestinal: Yes: WNL, Normal Bowel Sounds Genitourinary: Yes: WNL Musculoskeletal: Yes: WNL Extremities: Yes: WNL Edema: No Integumentary: Yes: WNL Neurological: Yes: WNL, Alert, Oriented ...Motor Strength: WNL Psychiatric: Yes: WNL Labs: CBC, BMP 04/13/19 05:40 04/13/19 05:40 INR, PTT INR 1.29 (0.83-1.09) H 04/09/19 19:50 Assessment/Plan - Problems (1) COPD exacerbation Assessment/Plan: CT chest: ? septic emboli. As reviewed with Dr. Velazquez, cannot exclude cancerous process. Pt will require close followup for decision-making regarding these findings. Code(s): J44.1 - CHRONIC OBSTRUCTIVE PULMONARY DISEASE W (ACUTE) EXACERBATION (2) Ventral hernia Code(s): K43.9 - VENTRAL HERNIA WITHOUT OBSTRUCTION OR GANGRENE (3) Anxiety and depression Assessment/Plan: Now on Wellbutrin for anxiety and as aid to stop smoking; he says it has improved his mood, and has no craving to smoke. Code(s): F41.9 - ANXIETY DISORDER, UNSPECIFIED; F32.9 - MAJOR DEPRESSIVE DISORDER, SINGLE EPISODE, UNSPECIFIED (4) Smokes cigarettes Assessment/Plan: Pt was on nicotine patch, but kept removing it and smoking. Smokes a pack a day or more again. Now on Wellbutrin (for anxiety/derpression and cigarettes; denies hx seizures). Code(s): F17.210 - NICOTINE DEPENDENCE, CIGARETTES, UNCOMPLICATED (5) [place] cardiac risk >20% in next 10 years Assessment/Plan: 1st TNI < 0.02 x 2. EKG: AF with RVR Telemetry: AF; controlled VR. 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 Cast, and spoke to his PA, Jaylin. Coronary angiogram 02/2011: patent coronary arteries. Pt had stress treadmill MIBI 12/2017 that showed no evidence of myocardial ischemia; walked 4:43 minutes on Justin protocol. Will continue rivaroxaban (AF) but hold ASA. As discussed with Jaylin, the decision whether to restart it will be taken when he sees their team again. (He had a bleed while on both agents, though he thinks it was from beta asher that was given to slow AF with RVR that had developed during the stress test). Code(s): Z91.89 - OTH PERSONAL RISK FACTORS, NOT ELSEWHERE CLASSIFIED (6) Abdominal pain Assessment/Plan: GI workup noted. Code(s): R10.9 - UNSPECIFIED ABDOMINAL PAIN Qualifiers: Abdominal location: upper abdomen, unspecified Qualified Code(s): R10.10 - Upper abdominal pain, unspecified (7) Hypoxia Code(s): R09.02 - HYPOXEMIA (8) Polycythemia rubra vera Code(s): D45 - POLYCYTHEMIA VERA (9) Atrial fibrillation with rapid ventricular response Assessment/Plan: Continue diltiazem for HR control. F/u EKG; telemetry. Rivaroxaban restarted. ECHO: mildly reduced LVEF; mild LAE. Code(s): I48.91 - UNSPECIFIED ATRIAL FIBRILLATION (10) Hyperlipidemia Assessment/Plan: Start statin, and keep LDL < 70 mg/dL. Code(s): E78.5 - HYPERLIPIDEMIA, UNSPECIFIED (11) Systolic CHF Assessment/Plan: ECHO: mildly reduced LVEF (45-50%). On diltiazem CD for AF HR control (pt was given beta blockers in 2017, when he developed AF with RVR; the HR was controlled, but days later he had GI bleed. He blames it on the beta asher, and is afraid to restart them. He denies hx asthma). Start lisinopril 2.5 mg daily. F/u BUN/Cr, electrolytes, daily weight, Is and Os. Code(s): I50.20 - UNSPECIFIED SYSTOLIC (CONGESTIVE) HEART FAILURE
--- NOTE | 2019-04-14 14:13 | PN ---
Progress Note (short form) - Note Progress Note: PULMONARY Breathing better. Ambulating with oxygen. Less cough and wheezing. Vital Signs Period Temp Pulse Resp BP Sys/Delaney Pulse Ox Last 24 Hr 97.8 F-98.2 F 75-107 18-20 121-136/63-86 90-92 Gen: less tachypneic Heart: RRR Lung: distant breath sounds Abd: soft, nontender Ext: no edema CBC, BMP 04/13/19 05:40 04/13/19 05:40 Active Medications Albuterol Sulfate (Ventolin 0.083% Nebulizer Soln -) 1 amp NEB Q4H PRN PRN Reason: SHORT OF BREATH/WHEEZING Last Admin: 04/14/19 00:08 Dose: 1 amp Albuterol/Ipratropium (Duoneb -) 1 amp NEB RQID [facility] Last Admin: 04/14/19 12:29 Dose: 1 amp Atorvastatin Calcium (Lipitor -) 10 mg PO HS [facility] Last Admin: 04/13/19 21:38 Dose: Not Given Bupropion HCl (Wellbutrin Xl -) 300 mg PO DAILY [facility] Last Admin: 04/14/19 09:06 Dose: 300 mg Diltiazem HCl 180 mg/ (Diltiazem HCl 120 mg) 300 mg PO DAILY [facility] Last Admin: 04/14/19 09:07 Dose: 300 mg Docusate Sodium (Colace -) 100 mg PO DAILY [facility] Last Admin: 04/14/19 09:13 Dose: 100 mg Gabapentin (Neurontin -) 600 mg PO HS [facility] Last Admin: 04/13/19 21:37 Dose: 600 mg Lisinopril (Prinivil) 2.5 mg PO DAILY [facility] Last Admin: 04/14/19 09:24 Dose: 2.5 mg Melatonin (Melatonin) 5 mg PO HS PRN PRN Reason: INSOMNIA Last Admin: 04/13/19 21:38 Dose: 5 mg Methylprednisolone Sodium Succinate (Solu-Medrol -) 40 mg IVPUSH BID [facility] Last Admin: 04/14/19 09:11 Dose: 40 mg Pantoprazole Sodium (Protonix Iv) 40 mg IVPUSH BID [facility] Last Admin: 04/14/19 09:11 Dose: 40 mg Polyethylene Glycol (Miralax (For Daily Use) -) 17 gm PO BID [facility] Last Admin: 04/14/19 09:14 Dose: 17 gm Rivaroxaban (Xarelto) 20 mg PO DAILY [facility] Last Admin: 04/14/19 09:06 Dose: 20 mg Senna (Senna -) 1 tab PO BID [facility] Last Admin: 04/14/19 09:06 Dose: 1 tab Sodium Chloride ([place] Nasal [place] -) 2 spray NS TID PRN PRN Reason: NASAL CONGESTION Last Admin: 04/08/19 21:00 Dose: 2 spray A/P Acute COPD Exacerbation Obstructive Sleep Apnea Anxiety Atrial Fibrillation Unintentional Weight Loss/Failure to Thrive Smoker Polycythemia likely secondary Lung Nodules - can change steroids to PO prednisone 40mg daily and taper slowly - pt has outpt pulmonary appt 04/29 at [place] - inhaled bronchodilators standing and PRN - O2 to keep Spo2 >90% - CPAP at night - rate control - continue anticoagulation - smoking cessation discussed - would defer elective invasive procedures at this time until acute exacerbation improves - outpt f/u of chest imaging
[2019-04-14 14:40] VITALS: BP 137/66; TEMP 97.9
--- NOTE | 2019-04-14 16:10 | PN ---
Teaching Attending Note Name of Resident: Arnaldo Bonds ATTENDING PHYSICIAN STATEMENT I saw and evaluated the patient. I reviewed the resident's note and discussed the case with the resident. I agree with the resident's findings and plan as documented. SUBJECTIVE: No fever or chills. SOB has improved compared to before . no cough. used his O2 and feels betetr on it. OBJECTIVE: NAD, awake, comfortable in chair. CV: distant heart sounds Lungs; scattered wheezing. good air entry. Ext : trace pitting edema on legs ASSESSMENT AND PLAN: 63 y/o man with h/o COPD , polycythemia vera, A fib on xarelto , restless leg syndrome , and other medical problems who presented with SOb and abd pain and was found to have acute COPD exacerbation 1- Acute COPD exacerbation 2- L upper and L lower lung cavitary lesions 3- Abd pain. 4- h/o Afib on xarelto . 5- current smoker 6- fatty liver on US 7- hepatic cyst 8- Pancreatic duct at upper limit of NL . plan : - dc with steroids taper . - O2 3 L at rest and 5 with ambulation. I explained to him and his that he can't smoke while using o2 due to risk for facial bedoya - cont wellbutrin at dc - CT of chest , Abd/p, US, and echo reviwed. - f/u with GI for fatty liver, and pancreatic duct dilation and hepatic cyst - add symbicort at dc - dc asa at dc. per card note, he bled while on xarelto and ASA - f/u with GI for EGD f/u with pulm regarding the lung nodules dc home .
--- NOTE | 2019-04-14 16:22 | DS ---
Physical Exam: SUBJECTIVE: Patient seen and examined at bedside. There were no acute events overnight. This AM he offers no new complaints. OBJECTIVE: Vital Signs Period Temp Pulse Resp BP Sys/Delaney Pulse Ox Last 24 Hr 97.8 F-98.2 F 75-107 18-20 121-137/63-86 90-92 PHYSICAL EXAM GENERAL: AOx3, in no acute distress, well groomed. HEAD: NCAT EYES: ISAI, EOMI, conjunctiva clear, non-icteric ENT: Ears normal, nares patent, oropharynx clear without exudates. Moist mucous membranes. NECK: Normal range of motion, JVD, or masses. LUNGS: CTAB. No wheezes, and no crackles. No accessory muscle use. HEART: RRR s1 s2 ABDOMEN: Obese, firm, BS present in all 4 quadrants, non-distended, no JVD MUSCULOSKELETAL: No bony deformities or tenderness. No CVA tenderness. UPPER EXTREMITIES: 2+ pulses, warm, well-perfused. No cyanosis. No clubbing. No peripheral edema. LOWER EXTREMITIES: 2+ pulses, warm, well-perfused. No calf tenderness. No peripheral edema. NEUROLOGICAL: No focal deficits. Cranial nerves II-XII intact. Normal speech. Gait not appreciated. PSYCHIATRIC: Cooperative. Good eye contact. Appropriate mood and affect. SKIN: Not jaundiced, warm, dry, normal turgor, no rashes or lesions noted, normal capillary refill. LABS CBC, BMP 04/13/19 05:40 04/13/19 05:40 HOSPITAL COURSE: Date of Admission:04/07/19 63 y/o male PMH HTN, HLD, afib on xarelto, RLS, RAINER, MDS and COPD non-adherent to home o2 whom c/o SOB, admitted for care acute respiratory failure 2/2 acute COPD exacerbation. He is an active smoker and determined that he needs 3L home o2 this visit. He was advised to cease smoking and educated on this high risk/danger of smoker any where near oxygen. Imaging demonstrated LEFT upper and LEFT lower lung cavitary lesions; he plans to f/u with pulm at [facility]. Symbicort was added to his home regimen on dc. On admission, he demonstrated Afib with RVR which resolved with his home dose (diltiazem 300 mg qd). ASA was dc per cardiology, as he bled while on xarelto and ASA. His stay was notable for abdominal pain that self-resolved; he was advised to f/u with GI for fatty liver, pancreatic duct dilation, and hepatic cyst. He was dc to home Date of Discharge: 04/14/19 Minutes to complete discharge: 40 Discharge Summary Problems reviewed: Yes Reason For Visit: ABDOMINAL PAIN Current Active Problems Atrial fibrillation with rapid ventricular response (Acute) Unintentional weight loss (Acute) Anxiety and depression (Chronic) CHF (congestive heart failure) (Chronic) COPD (chronic obstructive pulmonary disease) (Chronic) [place] cardiac risk >20% in next 10 years (Chronic) Hyperlipidemia (Chronic) Hypoxia (Chronic) Polycythemia rubra vera (Chronic) Smokes cigarettes (Chronic) Ventral hernia (Chronic) Condition: Improved - Instructions Diet, Activity, Other Instructions: YOUR VISIT You came to the hospital because you were experiencing abdominal pain. You were admitted to the hospital for assessment and found to be hypoxic, which required further care. While here you were seen by a stunt double, flight mechanic, and a horse race timer. You are now stable and may return home. MEDICATIONS We have stopped your aspirin due to bleeding risk. DO NOT take this medication any more. Please continue to take your medications as prescribed. It is very important that you continue to use your home oxygen at all times. You require 3L of oxygen when at rest and 5L of oxygen with activity. Do not smoke as you can burn your face with O2 on . NEW MEDICATIONS - Lisinopril 2.5 mg by mouth everyday - Atorvastatin 10mg by mouth daily - Bupropion 300mg by mouth daily Since you were receiving steroid medications in the hospital, you will need to continue this at home with a tapered dose (30 tablets) as follows: April 15, 2019 prednisone 40 mg by mouth April 16, 2019 prednisone 40 mg by mouth April 17, 2019 prednisone 40 mg by mouth April 18, 2019 prednisone 30 mg by mouth April 19, 2019 prednisone 30 mg by mouth April 20, 2019 prednisone 30 mg by mouth April 21, 2019 prednisone 20 mg by mouth April 22, 2019 prednisone 20 mg by mouth April 23, 2019 prednisone 20 mg by mouth April 24, 2019 prednisone 10 mg by mouth April 25, 2019 prednisone 10 mg by mouth April 26, 2019 prednisone 10 mg by mouth April 27, 2019 STOP taking prednisone ADDITIONAL CARE Please make an appointment to see your primary care provider, Dr. Ball, 1 week from today. Please make an appointment to see a tile sprayer/oncologist in 1 week. You may continue your care with Dr. Light as you requested. It is important you discuss your recent weight loss at this appointment. Please make an appointment to see a flight mechanic in 1 week. A referral has to Dr. Mtz has been provided. Please make an appointment to see a stunt double in 1 week. You may continue your care with Dr. Isak Gregorio as you requested. It is recommend you bring the physical copy of your imaging (CD) to this appointment and discuss the findings of left upper and lower pulmonary lesions . Please make an appointment to see a horse race timer in 1 week. A referral has to Dr. Henry has been provided. Please discuss the need for an endoscopy and other important blood work. It is recommended you follow up with a urologist due to a lesion/polyp found on your urinary bladder. A referral has been provided to Dr. Montez has been provided. ADDITIONAL INFORMATION Please call 911 or come directly to the emergency department if you experience unusual headache, vision change, shortness of breath, chest pain, numbness, tingling, loss of alertness/awareness, loss of function, unusual bleeding or any alarming symptoms. you need to follow up with Dr. Henry regarding the fatty liver , and the dilated pancreatic duct ( might need MRI of your abdomen) , also regarding a cyst on your liver . Do not take aspirin . only take the xarelto fro blood thinning Referrals: Dennis Ball MD [Primary Care Provider] - 1 Week Murali Tabares MD [Staff Physician] - David Henry MD [Staff Physician] - Julien Mtz MD [Staff Physician] - 1 Week Isak Gregorio MD [Non Staff, Medical] - 1 Week Disposition: HOME - Home Medications Comprehensive Discharge Medication List: Ambulatory Orders Albuterol 2.5/Ipratropium 0.5 [Duoneb -] 1 neb NEB Q4H 04/07/19 Diltiazem HCl [Diltiazem 24Hr ER (Cd)] 180 mg PO HS 04/07/19 Gabapentin 600 mg PO BID 04/07/19 Rivaroxaban [Xarelto -] 20 mg PO DAILY 04/07/19 Tiotropium Br/Olodaterol HCl [Stiolto Respimat Inhal [place]] 2.5 mcg IH DAILY 04/07/19 Diltiazem HCl [Diltiazem 24Hr ER] 120 mg PO HS 04/08/19 Albuterol Sulfate Inhaler - [Ventolin HFA Inhaler -] 1 - 2 inh PO Q4H PRN #1 inhaler 04/14/19 Atorvastatin Ca [Lipitor] 10 mg PO HS 30 Days #30 tablet 04/14/19 Bupropion HCl [Wellbutrin Xl] 300 mg PO DAILY 30 Days #30 tab.er.24h 04/14/19 Lisinopril [Prinivil] 2.5 mg PO DAILY 30 Days #15 tablet 04/14/19 predniSONE [Deltasone -] See Taper PO ASDIR #30 tablet 04/14/19 This patient is new to me today: No Emergency Visit: No Critical Care patient: No - Discharge Referral Referred to [facility] No ATTENDING PHYSICIAN STATEMENT I saw and evaluated the patient. I reviewed the resident's note and discussed the case with the resident. I agree with the resident's findings and plan as documented. SUBJECTIVE: OBJECTIVE: ASSESSMENT AND PLAN:
--- NOTE | 2019-04-18 14:17 | EKG ---
Test Reason : Blood Pressure : / mmHG Vent. Rate : 098 BPM Atrial Rate : 098 BPM P-R Int : 124 ms QRS Dur : 096 ms QT Int : 356 ms P-R-T Axes : 080 186 067 degrees QTc Int : 454 ms SINUS RHYTHM WITH OCCASIONAL PREMATURE VENTRICULAR COMPLEXES POSSIBLE LEFT ATRIAL ENLARGEMENT RIGHT SUPERIOR AXIS DEVIATION PULMONARY DISEASE PATTERN SEPTAL INFARCT , AGE UNDETERMINED ABNORMAL ECG Confirmed by MD KAM, JOSE ([id number]) on 04/18/2019 2:17:51 PM Referred By: Confirmed By:JOSE HUMPHREY MD
== END 2019-04-14 18:20 | disposition home or self-care (01) | DRG 191 ==
LOC: JER 10:46 → JERBED 16:32 → J4S 04-09 18:00 → J5S 04-14 17:58 → J4S 04-14 18:00
PROVIDERS: ADMIT Internal Medicine; ATTEND Internal Medicine
DX: J44.1 Chronic obstructive pulmonary disease with (acute) exacerbation (principal); I50.22 Chronic systolic (congestive) heart failure; J98.11 Atelectasis; M62.08 Separation of muscle (nontraumatic), other site; D45 Polycythemia vera; F17.210 Nicotine dependence, cigarettes, uncomplicated; I48.91 Unspecified atrial fibrillation; N32.9 Bladder disorder, unspecified; R10.9 Unspecified abdominal pain; K76.89 Other specified diseases of liver; K43.9 Ventral hernia without obstruction or gangrene; R62.7 Adult failure to thrive; E78.5 Hyperlipidemia, unspecified; F41.8 Other specified anxiety disorders; K76.0 Fatty (change of) liver, not elsewhere classified; G47.33 Obstructive sleep apnea (adult) (pediatric); R74.0 Nonspecific elevation of levels of transaminase and lactic acid dehydrogenase [LDH]
CPT/HCPCS: 36415; 71045-TC-FY; 71250-TC; 74174-TC; 74240-TC-FY; 76705-TC; 80053; 80061; 82550; 83690; 83721; 83735; 83880; 84100; 84443; 84484; 85025; 85027; 85610; 85730; 86850; 86900; 86901; 87804; 93005; 93010; 93306-TC; 94640; 94761; 97116-GP; 97162-GP; 99285-25; J1644; J7030; Q9967